=== PATIENT | male | born 1975 | race African-American/Black ===

== ENCOUNTER 2020-05-12 21:01 | Inpatient (IN) | payer OTHER, SELFPAY ==
[~2020-05-12] VITALS: Ht 185.4 cm; Wt 91.6 kg
[~2020-05-12 21:01] MED LIST: ACET650S53 GT; ATRN INH; Acetaminophen/Hydrocodone Bi GT; CARB100T GT; CARB200T1 GT; DOCU-299 GT; LAC GT; LEVE500T9 GT; MAGN400S60 GT; NA P135N9 RC; PANT40VI GT; PHEN20EL30 GT; PIPE1PDS26 IV; PRON INH; [UNRECOGNIZED DRUG - CODE] GT
[2020-05-12 21:09] VITALS: BP 95/54
[2020-05-12] MEDS ORDERED: PIPERACILLIN/TAZOBACTAM 3.375 GM in DEXTROSE 5% 50 ML IV ONE (22:55)
[2020-05-12] MEDS ORDERED: AZITHROMYCIN 500 MG in DEXTROSE 5% 250 ML IV ONE (22:55)
[2020-05-12] MEDS ORDERED: AZITHROMYCIN 500 MG INJ VIAL IV ONE (23:01)
[2020-05-12] MEDS ORDERED: PIPERACILLIN/TAZOBACTAM 3.375 GM VIAL IV ONE (23:02)
[2020-05-12 23:13] LABS: HEMATOCRIT 33.7 % (36-52); MEAN CORPUSCULAR HEMOGLOBIN 30 pg (27-31); MEAN CORPUSCULAR HGB CONC 33 g/dL (33-37); MEAN CORPUSCULAR VOLUME 92.4 fL (80-94); PLATELET COUNT (AUTO) 282 K/uL (140-450); RED BLOOD CELL COUNT(AUTO) 3.64 MIL/uL (4.20-6.10); RED CELL DISTRIBUTION WIDTH 14.3 % (11.6-13.7); WHITE BLOOD COUNT (AUTO) 23.2 K/uL (4.8-10.8)
[2020-05-12 23:34] LABS: ALBUMIN 2.4 g/dL (3.4-5.0); ANION GAP 9.4 (8-16); CARBON DIOXIDE 29.3 mmol/L (21-32); CREATININE 0.7 mg/dL (0.6-1.3); LACTATE DEHYDROGENASE 103 U/L (85-227); LYMPHOCYTES % (MANUAL) 8 % (20-46); MONOCYTES % (MANUAL) 3 % (5-12); POTASSIUM 3.7 mmol/L (3.5-5.1); TOTAL BILIRUBIN 0.3 mg/dL (0.0-1.0)
[2020-05-12] MEDS ORDERED: DOCUSATE SODIUM 100 MG GELCAP PO PRN (23:35)
[2020-05-12] MEDS ORDERED: ONDANSETRON 4 MG/2 ML VIAL IM/IVP PRN (23:35)
[2020-05-12] MEDS ORDERED: HYDROcodone/APAP 5/325 MG 1 TAB TAB PO PRN (23:35)
[2020-05-12] MEDS ORDERED: ACETAMINOPHEN 325 MG TAB PO PRN (23:35)
[2020-05-12] MEDS ORDERED: MORPHINE SULFATE 2 MG/ML SYR IVP PRN (23:35)
[2020-05-12] MEDS ORDERED: ALBUTEROL SULFATE/IPRATROPIU 3 ML SOL IH PRN (23:40)
[2020-05-12 23:43] LABS: APPEARANCE,URINE SL CLOUDY (CLEAR); BILIRUBIN,URINE NEGATIVE (NEGATIVE); BLOOD, URINE NEGATIVE (NEGATIVE); COLOR,URINE YELLOW (YELLOW); LEUKOCYTE ESTERASE ,URINE 2+ (NEGATIVE); NITRITE, URINE NEGATIVE (NEGATIVE); PH,URINE 6.5 (5.0-9.0); UGLUCOSE NEGATIVE (NEGATIVE)
[2020-05-12 23:45] LABS: RSV NEGATIVE (NEGATIVE)
[2020-05-12] MEDS ORDERED: TAMS0.4C96 PO (23:45)
[2020-05-12 23:46] LABS: C-REACTIVE PROTEIN QUANT 28.9 mg/dL (0.0-0.9)
[2020-05-12 23:51] LABS: PROTHROMBIN TIME 10.9 secs (10.8-13.4)
[2020-05-12 23:52] LABS: RBC,URINE 0-5 /HPF (0-5); WBC,URINE 16-25 (MOD) /HPF (0-5)
[2020-05-13] VITALS (7 sets, daily range): BP systolic 94–130; BP diastolic 48–77
[2020-05-13 00:06] LABS: MAGNESIUM 2.2 mg/dL (1.8-2.4); PHOSPHORUS 2.2 mg/dL (2.5-4.9); THYROID STIMULATING HORMONE 0.89 uIU/mL (0.34-3.74)
[2020-05-13] MEDS ORDERED: ASCO500T45 GT (00:18)
[2020-05-13] MEDS ORDERED: MIRABULK GT (00:18)
[2020-05-13] MEDS: PIPERACILLIN/TAZOBACTAM 3.375 GM in DEXTROSE 5% 50 ML IV SCH ×4 (00:59→18:38)
[2020-05-13] MEDS: NACL 0.9% 1,000 ML IV SCH (00:59)
[2020-05-13] MEDS ORDERED: SODIUM PHOS / POTASSIUM PHOS 1 PKT PDR GT SCH (01:55)
[2020-05-13] MEDS ORDERED: PIPERACILLIN/TAZOBACTAM 3.375 GM VIAL IV ONE (04:13)
[2020-05-13] MEDS: carBAMazepine 200 MG TAB GT SCH ×3 (04:25→21:11)
[2020-05-13] MEDS ORDERED: ALBUTEROL SULFATE/IPRATROPIU 3 ML SOL IH SCH (06:00)
[2020-05-13 06:59] LABS: HEMATOCRIT 35.1 % (36-52); HEMOGLOBIN 11.4 g/dL (12.0-18.0); MEAN CORPUSCULAR HEMOGLOBIN 30 pg (27-31); MEAN CORPUSCULAR HGB CONC 32 g/dL (33-37); MEAN CORPUSCULAR VOLUME 92.6 fL (80-94); PLATELET COUNT (AUTO) 276 K/uL (140-450); RED BLOOD CELL COUNT(AUTO) 3.79 MIL/uL (4.20-6.10); RED CELL DISTRIBUTION WIDTH 14.1 % (11.6-13.7)
[2020-05-13 07:00] LABS: ANION GAP 9.3 (8-16); CARBON DIOXIDE 28.3 mmol/L (21-32); CREATININE 0.7 mg/dL (0.6-1.3); POTASSIUM 3.6 mmol/L (3.5-5.1)
[2020-05-13] MEDS: ALBUTEROL SULFATE/IPRATROPIU 3 ML SOL IH SCH ×3 (07:00→18:00)
[2020-05-13 07:08] LABS: MAGNESIUM 2.1 mg/dL (1.8-2.4); PHOSPHORUS 2.8 mg/dL (2.5-4.9)
[2020-05-13 07:58] LABS: CHOL/HDL RATIO 2.5 (1-4.5)
[2020-05-13] MEDS: LACTOBACILLUS RHAMNOSUS GG 1 EACH CAP GT SCH (09:01)
[2020-05-13] MEDS: levETIRAcetam 100 MG/ML ORASYR GT SCH ×2 (09:01→21:10)
[2020-05-13] MEDS: PANTOPRAZOLE 40 MG INJ VIAL IVP SCH (09:01)
[2020-05-13] MEDS: TAMSULOSIN 0.4 MG CAP GT SCH (09:01)
[2020-05-13 09:10] LABS: WHITE BLOOD COUNT (AUTO) 26.2 K/uL (4.8-10.8)
[2020-05-13 09:11] LABS: LYMPHOCYTES % (MANUAL) 3 % (20-46); MONOCYTES % (MANUAL) 6 % (5-12)
[2020-05-13] MEDS ORDERED: AZITHROMYCIN 250 MG in DEXTROSE 5% 250 ML IV SCH ×2 (11:00→23:00)
[2020-05-13] MEDS ORDERED: ALBUTEROL HFA MDI 90 MCG/ACTUATION 8 GM INH PRN (11:20)
[2020-05-13] MEDS: guaiFENesin DM 200/20 MG-10 ML 10 ML UDC GT PRN ×2 (12:24→18:38)
[2020-05-13] MEDS: ACETAMINOPHEN 650 MG/20.3 ML UDC GT PRN ×2 (17:45→23:55)
[2020-05-13] MEDS ORDERED: CRUSHER, PILL MC ONE (20:59)
[2020-05-14] VITALS (7 sets, daily range): BP systolic 101–119; BP diastolic 49–70
[2020-05-14] MEDS: PIPERACILLIN/TAZOBACTAM 3.375 GM in DEXTROSE 5% 50 ML IV SCH ×4 (00:22→18:34)
[2020-05-14] MEDS: NACL 0.9% 1,000 ML IV SCH (00:25)
[2020-05-14] MEDS: ACETAMINOPHEN 650 MG/20.3 ML UDC GT PRN (04:15)
[2020-05-14] MEDS: carBAMazepine 200 MG TAB GT SCH ×3 (04:32→21:32)
[2020-05-14 07:07] LABS: BASOPHILS # (AUTO) 0.1 K/uL (0.00-0.22); BASOPHILS % (AUTO) 0.3 % (0.0-2.0); HEMOGLOBIN 10.5 g/dL (12.0-18.0); LYMPHOCYTES # (AUTO) 1.6 K/uL (2.0-11.5); LYMPHOCYTES % (AUTO) 7.1 % (20.5-51.1); MEAN CORPUSCULAR HEMOGLOBIN 30 pg (27-31); MEAN CORPUSCULAR HGB CONC 33 g/dL (33-37); MEAN CORPUSCULAR VOLUME 91.9 fL (80-94); MONOCYTES # (AUTO) 1.1 K/uL (0.8-1.0); MONOCYTES % (AUTO) 4.8 % (1.7-9.3); NEUTROPHILS # (AUTO) 19.8 K/uL (1.8-7.7); NEUTROPHILS % (AUTO) 87.8 % (42.2-75.2); PLATELET COUNT (AUTO) 260 K/uL (140-450); RED BLOOD CELL COUNT(AUTO) 3.48 MIL/uL (4.20-6.10); RED CELL DISTRIBUTION WIDTH 13.9 % (11.6-13.7); WHITE BLOOD COUNT (AUTO) 22.6 K/uL (4.8-10.8)
[2020-05-14 07:12] LABS: ANION GAP 13.3 (8-16); CARBON DIOXIDE 25.2 mmol/L (21-32); CREATININE 1.3 mg/dL (0.6-1.3); POTASSIUM 3.5 mmol/L (3.5-5.1)
[2020-05-14 07:17] LABS: MAGNESIUM 2.6 mg/dL (1.8-2.4)
[2020-05-14] MEDS: ALBUTEROL SULFATE/IPRATROPIU 3 ML SOL IH SCH ×3 (07:40→19:35)
[2020-05-14] MEDS: levETIRAcetam 100 MG/ML ORASYR GT SCH ×2 (09:59→21:32)
[2020-05-14] MEDS: TAMSULOSIN 0.4 MG CAP GT SCH (10:00)
[2020-05-14] MEDS: PANTOPRAZOLE 40 MG INJ VIAL IVP SCH (10:00)
[2020-05-14] MEDS: LACTOBACILLUS RHAMNOSUS GG 1 EACH CAP GT SCH (10:00)
[2020-05-15] VITALS (7 sets, daily range): BP systolic 91–106; BP diastolic 44–64
[2020-05-15] MEDS: PIPERACILLIN/TAZOBACTAM 3.375 GM in DEXTROSE 5% 50 ML IV SCH ×5 (00:42→23:53)
[2020-05-15] MEDS: NACL 0.9% 1,000 ML IV SCH (00:49)
[2020-05-15] MEDS: carBAMazepine 200 MG TAB GT SCH ×3 (05:37→20:17)
[2020-05-15 06:00] LABS: BASOPHILS # (AUTO) 0.1 K/uL (0.00-0.22); BASOPHILS % (AUTO) 0.7 % (0.0-2.0); HEMATOCRIT 32.2 % (36-52); HEMOGLOBIN 10.5 g/dL (12.0-18.0); LYMPHOCYTES # (AUTO) 1.6 K/uL (2.0-11.5); LYMPHOCYTES % (AUTO) 10.2 % (20.5-51.1); MEAN CORPUSCULAR HEMOGLOBIN 30 pg (27-31); MEAN CORPUSCULAR HGB CONC 33 g/dL (33-37); MONOCYTES % (AUTO) 6.2 % (1.7-9.3); NEUTROPHILS # (AUTO) 12.8 K/uL (1.8-7.7); NEUTROPHILS % (AUTO) 82.9 % (42.2-75.2); PLATELET COUNT (AUTO) 280 K/uL (140-450); RED BLOOD CELL COUNT(AUTO) 3.54 MIL/uL (4.20-6.10); RED CELL DISTRIBUTION WIDTH 13.9 % (11.6-13.7); WHITE BLOOD COUNT (AUTO) 15.5 K/uL (4.8-10.8)
[2020-05-15 07:04] LABS: ANION GAP 12.8 (8-16); CARBON DIOXIDE 27.2 mmol/L (21-32); CREATININE 0.9 mg/dL (0.6-1.3)
[2020-05-15 07:15] LABS: MAGNESIUM 2.8 mg/dL (1.8-2.4); PHOSPHORUS 1.9 mg/dL (2.5-4.9)
[2020-05-15] MEDS: ALBUTEROL SULFATE/IPRATROPIU 3 ML SOL IH SCH ×3 (07:45→19:55)
[2020-05-15] MEDS: levETIRAcetam 100 MG/ML ORASYR GT SCH ×2 (08:55→20:18)
[2020-05-15] MEDS: PANTOPRAZOLE 40 MG INJ VIAL IVP SCH (08:55)
[2020-05-15] MEDS: LACTOBACILLUS RHAMNOSUS GG 1 EACH CAP GT SCH (08:56)
[2020-05-15] MEDS: TAMSULOSIN 0.4 MG CAP GT SCH (08:56)
[2020-05-15] MEDS ORDERED: POTASSIUM CHLORIDE 40 MEQ, LIDOCAINE MPF 1% 25 MG in NACL 0.9% 250 ML IV PRN (09:10)
[2020-05-15] MEDS: SODIUM PHOS / POTASSIUM PHOS 1 PKT PDR GT SCH ×2 (14:14→17:42)
[2020-05-15] MEDS ORDERED: POTASSIUM CHLORIDE 10 MEQ TABER PO SCH (17:00)
[2020-05-15] MEDS ORDERED: Z-GUARD PASTE TP SCH (22:50)
[2020-05-16] VITALS: BP 117/78
[2020-05-16] MEDS: NACL 0.9% 1,000 ML IV SCH (00:25)
[2020-05-16 03:50] VITALS: BP 100/62
[2020-05-16] MEDS: carBAMazepine 200 MG TAB GT SCH ×2 (04:11→12:41)
[2020-05-16] MEDS: PIPERACILLIN/TAZOBACTAM 3.375 GM in DEXTROSE 5% 50 ML IV SCH ×2 (05:32→12:41)
[2020-05-16 07:17] LABS: BASOPHILS # (AUTO) 0.1 K/uL (0.00-0.22); BASOPHILS % (AUTO) 0.7 % (0.0-2.0); HEMOGLOBIN 9.7 g/dL (12.0-18.0); LYMPHOCYTES # (AUTO) 1.4 K/uL (2.0-11.5); LYMPHOCYTES % (AUTO) 10.1 % (20.5-51.1); MEAN CORPUSCULAR HEMOGLOBIN 30 pg (27-31); MEAN CORPUSCULAR HGB CONC 33 g/dL (33-37); MEAN CORPUSCULAR VOLUME 90.8 fL (80-94); MONOCYTES # (AUTO) 1.1 K/uL (0.8-1.0); NEUTROPHILS # (AUTO) 11.2 K/uL (1.8-7.7); NEUTROPHILS % (AUTO) 81.2 % (42.2-75.2); PLATELET COUNT (AUTO) 261 K/uL (140-450); WHITE BLOOD COUNT (AUTO) 13.8 K/uL (4.8-10.8)
[2020-05-16 07:23] LABS: ANION GAP 14.9 (8-16); CARBON DIOXIDE 24.6 mmol/L (21-32); CREATININE 0.8 mg/dL (0.6-1.3); POTASSIUM 3.5 mmol/L (3.5-5.1)
[2020-05-16] MEDS: ALBUTEROL SULFATE/IPRATROPIU 3 ML SOL IH SCH ×2 (07:40→12:30)
[2020-05-16 08:00] VITALS: BP 109/75
[2020-05-16] MEDS ORDERED: PIPE1PDS26 IV (08:21)
[2020-05-16] MEDS ORDERED: HEPA500056 SUBQ (08:27)
[2020-05-16] MEDS: PANTOPRAZOLE 40 MG INJ VIAL IVP SCH (08:40)
[2020-05-16] MEDS: SODIUM PHOS / POTASSIUM PHOS 1 PKT PDR GT SCH (08:40)
[2020-05-16] MEDS: TAMSULOSIN 0.4 MG CAP GT SCH (08:40)
[2020-05-16] MEDS: LACTOBACILLUS RHAMNOSUS GG 1 EACH CAP GT SCH (08:41)
[2020-05-16] MEDS: levETIRAcetam 100 MG/ML ORASYR GT SCH (08:41)
[2020-05-16] MEDS ORDERED: NEUTRAPHOS GT (08:44)
[2020-05-16 12:00] VITALS: BP 114/72
== END 2020-05-16 16:13 | DRG 871 ==
LOC: MED 21:01 → EEVIPCON 21:01 → MTU 23:34
PROVIDERS: ADMIT General Practice; ATTEND General Practice
PROC: 5A1945Z Respiratory Ventilation, 24-96 Consecutive Hours (ICD-10-PCS; principal; 2020-05-13)
DX: A41.9 Sepsis, unspecified organism (principal); J69.0 Pneumonitis due to inhalation of food and vomit; E43 Unspecified severe protein-calorie malnutrition; R53.2 Functional quadriplegia; J96.21 Acute and chronic respiratory failure with hypoxia; N17.0 Acute kidney failure with tubular necrosis; N39.0 Urinary tract infection, site not specified; Z93.0 Tracheostomy status; D63.8 Anemia in other chronic diseases classified elsewhere; G40.909 Epilepsy, unspecified, not intractable, without status epilepticus; K21.9 Gastro-esophageal reflux disease without esophagitis; R13.10 Dysphagia, unspecified; Z80.8 Family history of malignant neoplasm of other organs or systems; Z88.8 Allergy status to other drugs, medicaments and biological substances; J44.9 Chronic obstructive pulmonary disease, unspecified; G80.9 Cerebral palsy, unspecified; D64.9 Anemia, unspecified; E83.39 Other disorders of phosphorus metabolism; Z03.818 Encounter for observation for suspected exposure to other biological agents ruled out; Z68.26 Body mass index [BMI] 26.0-26.9, adult
CPT/HCPCS: 36415; 36600; 71045; 80048; 80053; 81001; 82550; 82728; 82803; 83036; 83605; 83615; 83735; 83880; 84100; 84443; 84484; 85025; 85379; 85384; 85610; 85651; 85730; 86140; 87040; 87070; 87081; 87086; 87186; 87205; 87420; 87804; 93005; 94003; 94640; 96365; 99291; C9113; J0456; J1644; J2001; J2543; J3480; J7030; J7060; Q0092; U0003-CS

== ENCOUNTER 2020-09-11 16:46 | Emergency (ER) | payer OTHER ==
[~2020-09-11] VITALS: Ht 185.4 cm; Wt 87.5 kg
[2020-09-11 16:30] VITALS: BP 120/78
--- NOTE | 2020-09-11 16:30 | NUR ---
PT BIBA FOR FEVER PLACED ON CARESCAPE VENT SETTINGS AC 14 VT400 PEEP 5 FIO2 30% ALARMS ON AND AUDIBLE AND BVM AT HOB VENT IS PLUGGED INTO RED OUTLET, SXN PT MODERATE AMT OF THICK WHITE SECRETIONS B\S IS RHONCHI BILATERALLY, PT IS TRACH WITH PORTEX 7
[~2020-09-11 16:46] MED LIST changes: -ACET650S53 GT; +ASCO500T95 GT; -ATRN INH; -Acetaminophen/Hydrocodone Bi GT; -CARB100T GT; -DOCU-299 GT; +HYDR-5122 PO; -LAC GT; +LANS15EC28 PO; +LOV40I SUBQ; -MAGN400S60 GT; +MUC104 INH; -NA P135N9 RC; +PANT40PD7 IVP; -PANT40VI GT; -PIPE1PDS26 IV; -PRON INH; +VITD400 GT; +ZINC220C28 GT; +[UNRECOGNIZED DRUG - CODE] GT; -[UNRECOGNIZED DRUG - CODE] GT; +levaquin IV
--- NOTE | 2020-09-11 16:46 | NUR ---
BIBA TAKEN TO BED 1
[2020-09-11 16:47] VITALS: BP 120/78
[2020-09-11] MEDS ORDERED: VANCOMYCIN 1,000 MG in DEXTROSE 5% 250 ML IV ONE (16:50)
[2020-09-11] MEDS ORDERED: PIPERACILLIN/TAZOBACTAM 4.5 GM in DEXTROSE 5% 100 ML IV ONE (16:50)
--- NOTE | 2020-09-11 16:52 | NUR ---
45 y/o male biba from [facility] for fever since this afternoon. Per ems pt was given tylenol at facility. Pt skin warm and moist. RR even and unlabored, connected to ventilator. Per ems pt was covid negative on 09/01. Positioned for comfort. Placed on bedside monitor medhx: Chronic respiratory failure, anemia, cerebral palsy
[2020-09-11] MEDS ORDERED: VANCOMYCIN 1,000 MG VIAL ONE (16:58)
[2020-09-11] MEDS ORDERED: PIPERACILLIN/TAZOBACTAM 4.5 GM VIAL IV ONE ×2 (16:58→17:08)
--- NOTE | 2020-09-11 17:09 | NUR ---
16F gandara catheter placed, 350cc urine collected at this time.
--- NOTE | 2020-09-11 17:10 | NUR ---
Renetta james in ED - 09/11/20 at 1710 by [email or web address] Covid swab collected and given to
--- NOTE | 2020-09-11 17:10 | NUR ---
Covid swab collected and given to phleb.
--- NOTE | 2020-09-11 17:11 | NUR ---
X-Ray at bedside.
[2020-09-11 17:22] LABS: APPEARANCE,URINE CLEAR (CLEAR); BILIRUBIN,URINE NEGATIVE (NEGATIVE); BLOOD, URINE TRACE-I (NEGATIVE); COLOR,URINE YELLOW (YELLOW); LEUKOCYTE ESTERASE ,URINE TRACE (NEGATIVE); NITRITE, URINE NEGATIVE (NEGATIVE); PH,URINE 5.5 (5.0-9.0); UGLUCOSE NEGATIVE (NEGATIVE)
[2020-09-11 17:25] LABS: BASOPHILS # (AUTO) 0.1 K/uL (0.00-0.22); BASOPHILS % (AUTO) 1.1 % (0.0-2.0); HEMATOCRIT 36.1 % (36-52); LYMPHOCYTES # (AUTO) 2.3 K/uL (2.0-11.5); LYMPHOCYTES % (AUTO) 19.1 % (20.5-51.1); MEAN CORPUSCULAR HEMOGLOBIN 30 pg (27-31); MEAN CORPUSCULAR HGB CONC 33 g/dL (33-37); MEAN CORPUSCULAR VOLUME 91.6 fL (80-94); MONOCYTES # (AUTO) 1.2 K/uL (0.8-1.0); MONOCYTES % (AUTO) 9.9 % (1.7-9.3); NEUTROPHILS # (AUTO) 8.6 K/uL (1.8-7.7); NEUTROPHILS % (AUTO) 69.9 % (42.2-75.2); PLATELET COUNT (AUTO) 248 K/uL (140-450); RED BLOOD CELL COUNT(AUTO) 3.95 MIL/uL (4.20-6.10); RED CELL DISTRIBUTION WIDTH 14.5 % (11.6-13.7); WHITE BLOOD COUNT (AUTO) 12.3 K/uL (4.8-10.8)
[2020-09-11 17:38] LABS: ANION GAP 11.5 (8-16); CARBON DIOXIDE 28.6 mmol/L (21-32); CREATININE 0.6 mg/dL (0.6-1.3); POTASSIUM 4.1 mmol/L (3.5-5.1); TOTAL BILIRUBIN 0.2 mg/dL (0.0-1.0)
[2020-09-11 17:46] LABS: CREATINE KINASE MB 0.3 ng/mL (0-3.6)
[2020-09-11] MEDS ORDERED: TAMS0.4C96 PO (18:02)
[2020-09-11] MEDS ORDERED: MAGN400S60 PO (18:02)
[2020-09-11] MEDS ORDERED: MULT-1328 GT (18:02)
[2020-09-11] MEDS ORDERED: LACT1CAP59 GT (18:02)
--- NOTE | 2020-09-11 18:22 | NUR ---
pt repositioned for comfort, HOB elevated. Remains on bedside monitor. VSS
--- NOTE | 2020-09-11 18:33 | NUR ---
Nunez catheter removed, pt tolerated well.
--- NOTE | 2020-09-11 18:42 | NUR ---
Gave report to GUILLERMO Chacko at [facility]. Made aware of approx arrival time.
--- NOTE | 2020-09-11 19:08 | NUR ---
Report given to GUILLERMO Biggs. Transfer of care at this time
--- NOTE | 2020-09-11 19:11 | NUR ---
REPORT RECEIVED FROM GUILLERMO DELACRUZ FOR CONTINUATION OF CARE.
--- NOTE | 2020-09-11 20:34 | NUR ---
[facility] TRANSPORT AT BEDSIDE
--- NOTE | 2020-09-11 20:40 | NUR ---
Renetta james in EDM - 09/11/20 at 2051 by [email or web address] PT 20G IV IN RT FOOT KEPT FOR CEC - PER GUILLERMO DELACRUZ , CEC WAS MADE AWARE DURING REPORT.
--- NOTE | 2020-09-11 20:40 | NUR ---
PT 20G IV IN RT FOOT KEPT FOR CEC - PER GUILLERMO DELACRUZ , CEC WAS MADE AWARE DURING REPORT.
[2020-09-11 20:45] VITALS: BP 104/71
--- NOTE | 2020-09-11 20:45 | NUR ---
Patient discharged with v/s stable. Written and verbal after care instructions given and explained. Patient verbalized understanding. Ambulance Transport with [facility] to long-term. All questions addressed prior to discharge. Advised to follow up with PMD.
== END 2020-09-11 20:45 | disposition home or self-care (01) ==
LOC: MED 16:46
DX: J18.9 Pneumonia, unspecified organism (principal); Z20.828 Contact with and (suspected) exposure to other viral communicable diseases; J44.9 Chronic obstructive pulmonary disease, unspecified
CPT/HCPCS: 36415; 71045; 80053; 81003; 82550; 82553; 83605; 84484; 85025; 87040; 87086; 87426; 93005; 96365; 96366; 96367; 99285; J2543; J3370; J7060

== ENCOUNTER 2020-12-09 11:43 | Inpatient (IN) | payer OTHER, SELFPAY ==
[~2020-12-09] VITALS: Ht 170.2 cm; Wt 96.6 kg
[~2020-12-09 11:43] MED LIST changes: -ASCO500T95 GT; +LACT1CAP59 GT; -LANS15EC28 PO; -LOV40I SUBQ; +MAGN400S60 PO; -MUC104 INH; +MULT-1328 GT; -PANT40PD7 IVP; +TAMS0.4C96 PO; -VITD400 GT; -ZINC220C28 GT; -[UNRECOGNIZED DRUG - CODE] GT; -levaquin IV
--- NOTE | 2020-12-09 11:54 | NUR ---
pt transferred to bed 03
--- NOTE | 2020-12-09 12:00 | NUR ---
RECEIVED VENTILATOR SETTINGS FROM [facility] PLACED ON A VIASYS BROWN VENTILATOR WITH SETTINGS NOTED PLUGGED INTO RED OUTLET TOLERATING WELL WITHOUT ADVERSE REACTIONS TO A PORTEX DCT #7 AIRWAY SECURED WITH A PORTEX TRACH TIE LOC AWAKE GOOD CHEST RISE BREATH SOUNDS DECREASED BILATERAL AIRWAY PATENT
--- NOTE | 2020-12-09 12:15 | NUR ---
[facility] ATTEMPT X 2 UNABLE TO OBTAIN DUE TO LOW BLOOD PRESSURE INBOUND CUSTOMER SERVICE REPRESENTATIVE TO ATTEMPY AT A LATER TIME
[2020-12-09] MEDS ORDERED: NACL 0.9% 1,000 ML IV ONE (13:00)
[2020-12-09] MEDS ORDERED: ONDANSETRON 4 MG/2 ML VIAL IVP ONE (13:35)
[2020-12-09 13:42] LABS: BASOPHILS % (AUTO) 0.3 % (0.0-2.0); HEMOGLOBIN 10.7 g/dL (12.0-18.0); LYMPHOCYTES # (AUTO) 0.9 K/uL (2.0-11.5); LYMPHOCYTES % (AUTO) 5.2 % (20.5-51.1); MEAN CORPUSCULAR HEMOGLOBIN 29 pg (27-31); MEAN CORPUSCULAR HGB CONC 31 g/dL (33-37); MEAN CORPUSCULAR VOLUME 91.7 fL (80-94); MONOCYTES # (AUTO) 0.7 K/uL (0.8-1.0); MONOCYTES % (AUTO) 4.1 % (1.7-9.3); NEUTROPHILS # (AUTO) 16.4 K/uL (1.8-7.7); NEUTROPHILS % (AUTO) 90.4 % (42.2-75.2); PLATELET COUNT (AUTO) 307 K/uL (140-450); RED BLOOD CELL COUNT(AUTO) 3.71 MIL/uL (4.20-6.10); RED CELL DISTRIBUTION WIDTH 14.5 % (11.6-13.7); WHITE BLOOD COUNT (AUTO) 18.1 K/uL (4.8-10.8)
[2020-12-09 14:08] LABS: LACTATE DEHYDROGENASE 148 U/L (85-227)
--- NOTE | 2020-12-09 14:39 | NUR ---
45 years old male with history of cerebral palsy, chronic resp failure sent to er by ambulance from extended care for severe sob, vomiting.
[2020-12-09] MEDS ORDERED: ONDANSETRON 4 MG/2 ML VIAL ONE (14:42)
[2020-12-09 14:53] LABS: RSV NEGATIVE (NEGATIVE)
[2020-12-09 15:03] LABS: C-REACTIVE PROTEIN QUANT 40.4 mg/dL (0.0-0.9)
[2020-12-09] MEDS ORDERED: ENOXAPARIN 60 MG/0.6 ML SYR SUBQ ONE (15:10)
[2020-12-09 15:19] LABS: ALBUMIN 1.9 g/dL (3.4-5.0); ANION GAP 20.2 (8-16); CARBON DIOXIDE 16.7 mmol/L (21-32); CREATININE 1.6 mg/dL (0.6-1.3); POTASSIUM 3.9 mmol/L (3.5-5.1); TOTAL BILIRUBIN 0.3 mg/dL (0.0-1.0)
[2020-12-09] MEDS ORDERED: AZITHROMYCIN 1,000 MG in DEXTROSE 5% 500 ML IV ONE (15:55)
[2020-12-09] MEDS ORDERED: AZITHROMYCIN 500 MG INJ VIAL IV ONE (16:23)
[2020-12-09] MEDS ORDERED: cefTRIAXone 1,000 MG VIAL ONE (16:23)
[2020-12-09] MEDS ORDERED: NOREPINEPHRINE 4 MG/4 ML VIAL IV ONE ×2 (16:30→22:29)
--- NOTE | 2020-12-09 17:03 | NUR ---
patient remain hypotensive norepinephrine initiated.
[2020-12-09] MEDS ORDERED: ONDANSETRON 4 MG/2 ML VIAL IM/IVP PRN (17:55)
[2020-12-09] MEDS ORDERED: MORPHINE SULFATE 2 MG/ML SYR IVP PRN (17:55)
[2020-12-09] MEDS ORDERED: HYDROcodone/APAP 5/325 MG 1 TAB TAB PO PRN (17:55)
[2020-12-09] MEDS ORDERED: SODIUM PHOS / POTASSIUM PHOS 1 PKT PDR PO PRN (17:55)
[2020-12-09] MEDS ORDERED: MAG SULF 2000 MG/WATER PREMIX 50 ML IV PRN (17:55)
[2020-12-09] MEDS ORDERED: ACETAMINOPHEN 325 MG TAB PO PRN (17:55)
[2020-12-09] MEDS ORDERED: DOCUSATE SODIUM 100 MG GELCAP PO PRN (17:55)
[2020-12-09] MEDS ORDERED: MAGNESIUM HYDROXIDE 2400 MG/30 ML UDC PO PRN (18:00)
--- NOTE | 2020-12-09 18:11 | NUR ---
patient condition unstable, levophed at 25mcg/min BP<90.
[2020-12-09] MEDS: NACL 0.9% 1,000 ML IV SCH (18:20)
--- NOTE | 2020-12-09 18:32 | NUR ---
report endorsed ro charge nurse Ray all questions answered, meds/lab review.
[2020-12-09] MEDS: NOREPINEPHRINE 8 MG in DEXTROSE 5% 250 ML IV PRN (18:37)
--- NOTE | 2020-12-09 19:30 | NUR ---
Report received from GUILLERMO Leach for continuation of care.
--- NOTE | 2020-12-09 19:30 | NUR ---
See Levophed IV spreadsheet for updated vital signs.
[2020-12-09 19:31] LABS: MAGNESIUM 2.2 mg/dL (1.8-2.4); PHOSPHORUS 2.1 mg/dL (2.5-4.9)
--- NOTE | 2020-12-09 19:35 | NUR ---
Pt observed to have Gtube on continuous suctioning, noted 2 cannisters filled of liquid from Gtube, approx 2200 cc brown liquid . Observed urinary gandara w/ no output noted in gandara bag at this time.
[2020-12-09] MEDS: carBAMazepine 200 MG TAB GT SCH (21:00)
[2020-12-09] MEDS ORDERED: levETIRAcetam 100 MG/ML ORASYR GT SCH (21:00)
--- NOTE | 2020-12-09 21:06 | NUR ---
Contacted Dr. Patel regarding GTube medication orders . Pt has 2200 cc suctioned from Gtub and need clarification if Gtube medications should be administered. Also, requested a standing order for a vasopressor since pt is currently at 26 mcg/min on 8mg levophed at this time.
--- NOTE | 2020-12-09 21:10 | NUR ---
Per Dr. Patel contact pharmacy to convert Gtub medications to IV medications. Order Neosyn PRN for decreased BP.
--- NOTE | 2020-12-09 21:18 | NUR ---
per Pharmacy Keppra & phenobarbital are 1 to 1 medications and can be changed to IV medications w/ same mg dosage. There is no availability for carbamazepin in IV form at this time.
[2020-12-09] MEDS ORDERED: levETIRAcetam 100 MG/ML VIAL IV ONE (21:49)
[2020-12-09] MEDS ORDERED: PHENYLEPHRINE 10 MG in NACL 0.9% 250 ML IV PRN (22:00)
[2020-12-09] MEDS ORDERED: ACETAMINOPHEN 650 MG SUPP RC ONE (22:12)
--- NOTE | 2020-12-09 22:30 | NUR ---
Pt rectal temperature 105.8 F , pulled acetaminophen 650mg supp for administration. Initiated cooling measures at this time.
--- NOTE | 2020-12-09 22:45 | NUR ---
New bag of levophed 8mg in 250 ml D5% hung at this time.
[2020-12-09 22:46] VITALS: BP 85/50
--- NOTE | 2020-12-09 22:46 | NUR ---
RECEIVED PT ON SETTINGS NOTATED NO CHANGES HAVE BEEN MADE TO VENT VENT PLUGGED INTO RED OUTLET AND AMBU AT BEDSIDE WILL CONTINUE TO MONITOR
--- NOTE | 2020-12-09 23:00 | NUR ---
Perineal care provided. Sacral wound noted , pictures taken and documented. Pt provided w/ new sheets and repositioned to left side for comfort.
--- NOTE | 2020-12-09 23:00 | NUR ---
4 ml heather urine collect from gandara tubing via sterile procedure and walked to lab.
[2020-12-09] MEDS: levETIRAcetam 500 MG in NACL 0.9% 100 ML IV SCH (23:13)
[2020-12-09] MEDS: ACETAMINOPHEN 650 MG SUPP RC PRN (23:14)
[2020-12-09 23:33] LABS: BILIRUBIN,URINE 1+ (NEGATIVE); BLOOD, URINE 3+ (NEGATIVE); COLOR,URINE YELLOW (YELLOW); LEUKOCYTE ESTERASE ,URINE 2+ (NEGATIVE); NITRITE, URINE POSITIVE (NEGATIVE); PH,URINE 6.5 (5.0-9.0); UGLUCOSE NEGATIVE (NEGATIVE)
[2020-12-09 23:55] LABS: APPEARANCE,URINE CLOUDY (CLEAR)
[2020-12-09 23:57] LABS: RBC,URINE 11-20 (MOD) /HPF (0-5); WBC,URINE 20-60 /HPF (0-5)
[2020-12-10] MEDS ORDERED: PHENYLEPHRINE 10 MG/ML VIAL ONE ×5 (00:23→06:06)
--- NOTE | 2020-12-10 00:45 | NUR ---
Initiated Andrew-Synephrine 10mg in 250 NS at this time.
--- NOTE | 2020-12-10 00:58 | NUR ---
Pt current rectal temp 103.1 F , new ice packs and cool towels placed on pt at this time.
[2020-12-10 02:13] VITALS: BP 79/32
[2020-12-10] MEDS ORDERED: VANCOMYCIN PER PHARMACY MC PRN ×2 (02:20→04:00)
[2020-12-10] MEDS ORDERED: VANCOMYCIN 1GM/DEXT 5% PREMIX 200 ML IV SCH ×2 (02:50→04:30)
--- NOTE | 2020-12-10 03:00 | NUR ---
Per critical care Dr. Schumacher , order hydrocortisone 15 mg IV Q6H , Vasopressin titrate to max 0.04 if needed and administer 2L NS bolus.
[2020-12-10] MEDS ORDERED: VASOPRESSIN 20 UNITS in NACL 0.9% 250 ML IV SCH (03:05)
--- NOTE | 2020-12-10 03:10 | NUR ---
Initiated 2L NS bolus at this time.
[2020-12-10] MEDS ORDERED: NOREPINEPHRINE 4 MG/4 ML VIAL IV ONE (03:12)
--- NOTE | 2020-12-10 03:19 | NUR ---
New Levophed 8mg bag hung at this time.
--- NOTE | 2020-12-10 04:17 | NUR ---
New Andrew-synephrine 10mg bag hung at this time.
[2020-12-10] MEDS ORDERED: NACL 0.9% 2,000 ML IV ONE (04:25)
--- NOTE | 2020-12-10 04:30 | NUR ---
Spoke w/ pt's mother Chloé and updated her on pt status. Per mother ,patient has pacemaker. Also , per mother pt's baseline temperature is 97 F . Pt's mother informed of calling hours 1300 - 1400 during day shift and 2300 - 0000 on night shifts. She will be calling this afternoon for update on pt status.
[2020-12-10 04:44] VITALS: BP 94/52
[2020-12-10] MEDS ORDERED: VANCOMYCIN 1,000 MG VIAL ONE (04:45)
[2020-12-10] MEDS: HYDROCORTISONE NA SUCC 100 MG/2 ML VIAL IV SCH ×4 (05:05→18:00)
--- NOTE | 2020-12-10 05:20 | NUR ---
New Andrew-synephrine 10mg bag hung at this time.
--- NOTE | 2020-12-10 05:30 | NUR ---
Oral care provided at this time. Procedure well tolerate by patient.
--- NOTE | 2020-12-10 05:50 | NUR ---
Pt cleaned , perineal care provided and pt repositioned to left side . No acute distress noted. Procedure well tolerated by patient. Addendum: 12/10/20 at 0557 by ANGIE Pt cleaned , perineal care provided and pt repositioned to right lateral . No acute distress noted. Procedure well tolerated by patient.
--- NOTE | 2020-12-10 05:56 | NUR ---
CHG CLEANING PERFORMED. PT REPOSITIONED TO RIGHT LATERAL
[2020-12-10] MEDS ORDERED: PIPERACILLIN/TAZOBACTAM 3.375 GM VIAL IV ONE ×2 (06:06→18:57)
[2020-12-10] MEDS: PIPERACILLIN/TAZOBACTAM 3.375 GM in DEXTROSE 5% 50 ML IV SCH ×3 (06:20→18:00)
--- NOTE | 2020-12-10 06:55 | NUR ---
New Andrew-Synephrine 10mg hung at this time.
--- NOTE | 2020-12-10 06:57 | NUR ---
Total urine output during 1900 - 0700 shift is 64 ml.
--- NOTE | 2020-12-10 07:31 | NUR ---
Report given to GUILLERMO Bonilla for transfer of care.
--- NOTE | 2020-12-10 07:32 | NUR ---
received from prop worker for continuity of care
[2020-12-10 07:56] VITALS: BP 86/40
[2020-12-10 08:38] LABS: BASOPHILS % (AUTO) 0.2 % (0.0-2.0); HEMATOCRIT 33.5 % (36-52); HEMOGLOBIN 10.7 g/dL (12.0-18.0); LYMPHOCYTES # (AUTO) 1.3 K/uL (2.0-11.5); LYMPHOCYTES % (AUTO) 6.6 % (20.5-51.1); MEAN CORPUSCULAR HEMOGLOBIN 29 pg (27-31); MEAN CORPUSCULAR HGB CONC 32 g/dL (33-37); MONOCYTES # (AUTO) 0.9 K/uL (0.8-1.0); MONOCYTES % (AUTO) 4.8 % (1.7-9.3); NEUTROPHILS % (AUTO) 88.4 % (42.2-75.2); PLATELET COUNT (AUTO) 161 K/uL (140-450); RED BLOOD CELL COUNT(AUTO) 3.68 MIL/uL (4.20-6.10); RED CELL DISTRIBUTION WIDTH 14.7 % (11.6-13.7); WHITE BLOOD COUNT (AUTO) 19.2 K/uL (4.8-10.8)
[2020-12-10 08:43] LABS: ANION GAP 18.9 (8-16); CARBON DIOXIDE 16.1 mmol/L (21-32); CREATININE 2.8 mg/dL (0.6-1.3)
[2020-12-10] MEDS: TAMSULOSIN 0.4 MG CAP PO SCH (09:00)
[2020-12-10] MEDS ORDERED: PHENobarbital 65 MG/ML VIAL IV SCH (09:00)
[2020-12-10] MEDS: levETIRAcetam 500 MG in NACL 0.9% 100 ML IV SCH ×2 (09:00→21:00)
[2020-12-10] MEDS: carBAMazepine 200 MG TAB GT SCH ×2 (09:00→21:00)
[2020-12-10] MEDS: NOREPINEPHRINE 8 MG in DEXTROSE 5% 250 ML IV PRN (10:13)
[2020-12-10] MEDS: PHENYLEPHRINE 40 MG in NACL 0.9% 250 ML IV PRN (10:13)
[2020-12-10 10:55] VITALS: BP 117/65
--- NOTE | 2020-12-10 11:04 | NUR ---
PATIENT HAS BEEN SCREENED AND CATEGORIZED HIGH NUTRITION RISK. PATIENT WILL BE SEEN WITHIN 1-2 DAYS OF ADMISSION. 12/10/20 - 12/11/20 JHONY GUSTAFSON MBA, RD
--- NOTE | 2020-12-10 15:00 | NUR ---
temp 100.4, cooling measures rendered
[2020-12-10 15:01] VITALS: BP 105/59
[2020-12-10] MEDS: NACL 0.9% 1,000 ML IV SCH (17:55)
--- NOTE | 2020-12-10 19:20 | NUR ---
RECEIVED REPORT FROM GUILLERMO VIZCAINO AND [facility].
[2020-12-10 22:06] VITALS: BP 119/80
[2020-12-10] MEDS ORDERED: levETIRAcetam 100 MG/ML VIAL IV ONE (22:26)
--- NOTE | 2020-12-10 23:14 | NUR ---
PT RECTAL TEMP 99.2 AT THIS TIME. COOL WASHCLOTHS PLACED ON FOREHEAD AND UNDER ARMS.
[2020-12-11] VITALS (26 sets, daily range): BP systolic 88–127; BP diastolic 34–84
--- NOTE | 2020-12-11 00:15 | NUR ---
RECEIVED REPORT FROM ER NURSE. PT TRACH TO VENT. FIO2-24%, PEEP-5, TV-450, RATE-14. RESPIRATION EVEN AND UNLABORED. SYMMETRICAL CHEST EXPANSION. ORAL MUCOSA PINK AND MOIST. RIGHT FEMORAL TRIPLE LUMEN CATH INFUSING LEVOPHED @ 12MCG/MIN, COLLEEN @ 50MCG/HR. LINE ASYMPTOMATIC PATENT AND INTACT. SKIN WARM AND DRY. PRESSURE ULCER ON THE SACRAL AREA OBSERVED. OPTIFOAM DRESSING APPLIED. BED IN LOWEST POSITION, SIDE RAILS UP, SAFETY PRECAUTIONS OBSERVED. WILL CONTINUE TO MONITOR.
--- NOTE | 2020-12-11 00:25 | NUR ---
Patient will be admitted to care of DR MARQUEZ. Admited to ICU. Will go to room 3. Belongings list completed. Report to GUILLERMO RODRIGUEZ.
--- NOTE | 2020-12-11 00:34 | NUR ---
PT TRANSFERRED FROM ED TO ICU 3. PT TOLERATED WELL. WILL CONTINUE TO MONITOR
[2020-12-11] MEDS ORDERED: PIPERACILLIN/TAZOBACTAM 3.375 GM VIAL IV ONE ×2 (01:17→05:49)
[2020-12-11] MEDS: HYDROCORTISONE NA SUCC 100 MG/2 ML VIAL IV SCH ×4 (01:35→18:15)
[2020-12-11] MEDS: PIPERACILLIN/TAZOBACTAM 3.375 GM in DEXTROSE 5% 50 ML IV SCH ×4 (01:35→18:15)
[2020-12-11] MEDS ORDERED: NOREPINEPHRINE 4 MG/4 ML VIAL IV ONE (04:48)
[2020-12-11] MEDS: FAMOTIDINE 20 MG/2 ML VIAL IV SCH (05:15)
[2020-12-11] MEDS: NOREPINEPHRINE 16 MG in DEXTROSE 5% 250 ML IV PRN (05:16)
[2020-12-11 06:31] LABS: BASOPHILS # (AUTO) 0.1 K/uL (0.00-0.22); BASOPHILS % (AUTO) 0.4 % (0.0-2.0); HEMATOCRIT 32.3 % (36-52); HEMOGLOBIN 10.5 g/dL (12.0-18.0); LYMPHOCYTES # (AUTO) 0.7 K/uL (2.0-11.5); LYMPHOCYTES % (AUTO) 3.3 % (20.5-51.1); MEAN CORPUSCULAR HEMOGLOBIN 29 pg (27-31); MEAN CORPUSCULAR HGB CONC 32 g/dL (33-37); MEAN CORPUSCULAR VOLUME 90.8 fL (80-94); MONOCYTES # (AUTO) 1.2 K/uL (0.8-1.0); MONOCYTES % (AUTO) 5.9 % (1.7-9.3); NEUTROPHILS # (AUTO) 18.9 K/uL (1.8-7.7); NEUTROPHILS % (AUTO) 90.4 % (42.2-75.2); PLATELET COUNT (AUTO) 146 K/uL (140-450); RED BLOOD CELL COUNT(AUTO) 3.56 MIL/uL (4.20-6.10); RED CELL DISTRIBUTION WIDTH 14.9 % (11.6-13.7); WHITE BLOOD COUNT (AUTO) 20.9 K/uL (4.8-10.8)
[2020-12-11 06:53] LABS: ANION GAP 19.8 (8-16); CARBON DIOXIDE 16.1 mmol/L (21-32); CREATININE 3.2 mg/dL (0.6-1.3); POTASSIUM 4.9 mmol/L (3.5-5.1)
--- NOTE | 2020-12-11 07:30 | NUR ---
RECEIVED BEDSIDE REPORT FROM MATERNAL CHILD NURSE NURSE JENNIFER RN, PT ON TRACH TO VENT ACVC FIO2 24%, RATE 14 PEEP 5, NO SOB NOTED, SATURATING @ 100%, CENTRAL LINE TO R FEMORAL, TRIPLE LUMEN, PATENT INTACT, INFUSING NS @ KVO, LEVOPHED @ 12MCG/MIN, NEOSYNEPHRINE @ 50MCG/HR, INFUSING WELL, GT IN PLACE WITH INTERMITTENT SUCTION, DARK BROWN FLUID NOTED, HAMEED CATH IN PLACE DRAINING TO GRAVITY, INITIAL ASSESSMENT DONE, ALL SAFETY PRECAUTION MET, CALL LIGHT WITHINR EACH, WILL CONTINUE TO MONITOR.
[2020-12-11] MEDS: carBAMazepine 200 MG TAB GT SCH ×2 (08:08→23:33)
[2020-12-11] MEDS: ACETAMINOPHEN 650 MG SUPP RC PRN (08:08)
[2020-12-11] MEDS: levETIRAcetam 500 MG in NACL 0.9% 100 ML IV SCH ×2 (08:24→21:47)
[2020-12-11] MEDS: TAMSULOSIN 0.4 MG CAP PO SCH (08:26)
[2020-12-11] MEDS: PHENobarbital 130 MG/ML VIAL IV SCH (08:26)
[2020-12-11] MEDS ORDERED: PHENobarbital 65 MG/ML VIAL IV SCH (09:00)
[2020-12-11] MEDS ORDERED: VANCOMYCIN 1,000 MG in DEXTROSE 5% 250 ML IV SCH (09:00)
--- NOTE | 2020-12-11 11:18 | NUR ---
SOCIAL WORK NOTE: Patient's Orientation Unable To Assess Information Provided By JOANNA PHELAN - SISTER Comments SW WAS UNABLE TO MEET PATIENT AT BEDSIDE. SW COMPLETED ASSESSMENT WITH PATIENT'S SISTER AND LEFT PATIENT'S MOTHER TIKI. Manager Radiation, Realtionship and Phone Number MADALYN PHELAN MOTHER/CLAUM [phone] JOANNA PHELAN SISTER [phone] Healthcare Power of Line Installation Supervisor No Does Patient Have a POLST No Identifying Problems No Social Work Triggers Is A Social Work Consult Needed No Mandate Report Filed No Explanation Of Identifying Problems PATIENT IS A 45-YEAR-OLD MALE ADMITTED FOR NSTEMI AND HYPOTENSION. PATIENT HAS PMHX OF CEREBRAL PALSY, GERD, EPILEPSY, SACRAL ULCER, CHRONIC RESP. TRACH DEPENDENT, AND DYSPHAGIA. Fdc Facility [facility] - [phone] Pre-Admission Level Of Functioning Status Total Care Prior Resources/Services Used In Last 12 Months No Prior Resources Used SNF [facility] Prior Resources/Service Comments PER SISTER, PATIENT IS HALF-WAY. PATIENT IS ON BED HOLD. Prior DME Hospital Bed Trach Supplies Wheelchair Dialysis Comments N/A Patient Had Caregiver No Home Support No Caregiver Issues Financial Issues No Known Financial Issue Referral To The Financial Counselor Needed No Factors/Needs No D/C Needs Identified Pt/Rep Participated In Discharge Plan Yes Patient/Family Agress With Discharge Plan Yes Discharge Plan Comments TENTATIVE DISCHARGE PLAN IS FOR PATIENT TO RETURN [place] [facility]. DC Plan Status Initiated
--- NOTE | 2020-12-11 12:01 | NUR ---
DR GUTIERREZ AND DR VILLARREAL AT BEDSIDE EVALUATING PT.
[2020-12-11] MEDS: NACL 0.9% 1,000 ML IV SCH (12:30)
--- NOTE | 2020-12-11 13:10 | NUR ---
BEDSIDE ULTRASOUND KIDNEY DONE, PT TOLERATED WELL. WILL CONTINUE TO MONITOR.
--- NOTE | 2020-12-11 13:58 | NUR ---
WOUND CARE EVALUATION NOTE: REASON FOR EVALUATION: LOW JOSI SCALE AND SACRAL PRESSURE INJURY SKIN ASSESSMENT DONE WITH THIS 44 Y/O MALE PT WITH PRIMARY RN. PT. ADMITT[place] [facility] [place] [facility] WITH INITIAL DX FEVER AND SBO. PAST MEDICAL HX INCLUDES CHRONIC RESPIRATORY FAILURE, TRACH TO VENT, CEREBRAL PALSY WITH QUADRIPLEGIA, DYSPHAGIA, EPILEPSY, GERD, CHRONIC PRESSURE ULCER WOUNDS, G-TUBE. ALL ABOVE INFORMATION OBTAINED FROM ADMISSION H&P.PLAN OF CARE DISCUSSED WITH PRIMARY RN. INTEGUMENTARY: -TRACH SITE MARIOLA STOMA SKIN DRY AND CLEAN. SKIN INTACT. -GT SITE MARIOLA STOMA SKIN EROSION, 2X3 CM WOUND BED RED AND MOIST. -BILATERAL KNEES OLD SURGICAL SCARS -SACRAL PRESSURE INJURY STAGE 4, 6X2.5X1 CM, TUNNEL TO 12 O'CLOCK 0.8CM, WOUND BED IS RED 100% GRANULATING TISSUE, SMALL AMOUNT SEROUS DRAINAGE, NO ODOR, WOUND EDGE FLAT ,WHITE AND MOIST, MARIOLA WOUND SKIN HEALED SCARS TISSUE, MOIST IRREGULAR SHAPE -BILATERAL HEELS BLANCHABLE REDNESS, OFFLOADING RECOMMENDATIONS: -APPLY HYDRAGUARD TO R/L BUTTOCKS BID AND PRN IF SOILING PREVENTION -CLEANSE SACRALCOCCYX WITH WOUND CLEANSING SOLUTION AND PACK WITH THERAHONEY DRESSING SHEET TO WOUND BED/TUNNEL AND APPLY HYDRAGUARD TO MARIOLA WOUND SCARS TISSUE, COVER WITH COMPOSITE DRESSING QD AND PRN IF SOILING -APPLY HEEL PROTECTORS TO BOTH HEELS AT ALL TIMES -OFFLOAD BILATERAL HEELS BY PLACING PILLOWS UNDER CALVES UNLESS OTHERWISE CONTRAINDICATED -PRESSURE REDISTRIBUTION SURFACE THERAPY -TURN AND REPOSITION Q2H, OFFLOAD SACRALCOCCYX AND BUTTOCKS BY TURNING RIGHT AND LEFT -CONTINUE TO FOLLOW RD RECOMMENDATIONS ALL ABOVE RECOMMENDATIONS DISCUSSED WITH PRIMARY RN. PLEASE CONTACT WOUND CARE NURSE FOR ANY QUESTION AND CHANGE OF WOUND CONDITION.
--- NOTE | 2020-12-11 14:17 | NUR ---
DR RUVALCABA AT BEDSIDE EVALUATING PT.
--- NOTE | 2020-12-11 15:13 | NUR ---
12/11/20 RD INITIAL ASSESSMENT COMPLETED PLEASE REFER TO NUTRITION ASSESSMENT UNDER CARE ACTIVITY FOR ESTIMATED NUTRITIONAL NEEDS. 1. CONTINUE NPO MEDICALLY APPROPRIATE 2. CONSIDER TPN/PPN IF PATIENT IS UNABLE TO START ENTERAL NUTRITION 3. RECOMMEND MULTIVITAMIN ONCE DAILY AND VITAMIN C 500 MG BID FOR PRESSURE INJURY 4. IF/WHEN MEDICALLY APPROPRIATE TO INITIATE ENTERAL NUTRITION CONSIDER VITAL AF 1.2 @ 60 ML/HR WITH FREE WATER FLUSH OF 140 ML Q6H -THIS WILL PROVIDE 1440 ML OF VOLUME, 1167 ML OF WATER, 1728 KCAL, 108 GM OF PROTEIN WHICH MEETS 100% OF KCAL AND PROTEIN NEEDS. 5. RD TO FOLLOW-UP 2-3 DAYS, HIGH RISK JUAN PABLO LU RD
--- NOTE | 2020-12-11 16:00 | NUR ---
CONTRAST ADMINISTERED, PT TOLERATED WELL. WILL CONTINUE TO MONITOR.
[2020-12-11] MEDS: PHENYLEPHRINE 40 MG in NACL 0.9% 250 ML IV PRN (18:15)
--- NOTE | 2020-12-11 19:30 | NUR ---
RECEIVED REPORT FORM DAYSHIFT NURSE, AT [facility], FOR CONTINUITY OF CARE. PT AWAKE, OPENS EYES AND TRACKS MOVEMENTS. NON-VERBAL. FLACC 0. TRACH TO VENT, FIO2 24%. SPO2 WNL. LUNG SOUNDS DIMINISHED THROUGHOUT. +S1, S2 UPON AUSCULTATION. SR ON MONITOR. CONTINUES ON PRESSORS VIA RT FEM, TRIPLE LUMEN. SEE IV SPREADSHEET. ABDOMEN DISTENDED WITH DRAINAGE NOTED AROUND GT SITE. GTUBE IN PLACE. PT REMAINS NPO. AWAITING CT WITH ORAL CONTRAST. SKIN WARM AND DRY, NOT INTACT. SEE WOUND ASSESSMENT. BUE/BLE CONTRACTED. SAFETY PRECAUTIONS IN PLACE WITH BED LOW AND LOCKED. HOB >30 DEGREES. WILL CONT TO MONITOR FOR CHANGES.
--- NOTE | 2020-12-11 19:30 | NUR ---
ENDORSED PT TO WHEEL ALIGNMENT TECHNICIAN NURSE FARRAH FOR CONTINUOUS OF CARE.
--- NOTE | 2020-12-11 22:28 | NUR ---
TRANSFERRED PT TO CT AT THIS TIME WITH ASSISTANCE FROM RT.
--- NOTE | 2020-12-11 22:51 | NUR ---
2230 TOOK PATIENT TO CAT SCAN BAGGING PATIENT WITH 100% FIO2. REPLACED PATIENT BACK ON VENT AT 2253 WITH SAME SETTINGS
[2020-12-12] VITALS (24 sets, daily range): BP systolic 73–137; BP diastolic 40–86
[2020-12-12] MEDS: HYDRAGUARD CREAM TP SCH ×2 (01:00→12:12)
[2020-12-12] MEDS: FAMOTIDINE 20 MG/2 ML VIAL IV SCH (01:05)
[2020-12-12] MEDS: NACL 0.9% 1,000 ML IV SCH (03:59)
--- NOTE | 2020-12-12 04:54 | NUR ---
TRACH CARE DONE
[2020-12-12 06:26] LABS: BASOPHILS # (AUTO) 0.1 K/uL (0.00-0.22); BASOPHILS % (AUTO) 0.3 % (0.0-2.0); HEMATOCRIT 31.7 % (36-52); HEMOGLOBIN 10.1 g/dL (12.0-18.0); LYMPHOCYTES # (AUTO) 0.7 K/uL (2.0-11.5); LYMPHOCYTES % (AUTO) 2.5 % (20.5-51.1); MEAN CORPUSCULAR HEMOGLOBIN 29 pg (27-31); MEAN CORPUSCULAR HGB CONC 32 g/dL (33-37); MEAN CORPUSCULAR VOLUME 91.6 fL (80-94); MONOCYTES # (AUTO) 0.9 K/uL (0.8-1.0); NEUTROPHILS # (AUTO) 27.1 K/uL (1.8-7.7); NEUTROPHILS % (AUTO) 94.2 % (42.2-75.2); PLATELET COUNT (AUTO) 160 K/uL (140-450); RED BLOOD CELL COUNT(AUTO) 3.46 MIL/uL (4.20-6.10); RED CELL DISTRIBUTION WIDTH 15.4 % (11.6-13.7)
[2020-12-12 06:46] LABS: MAGNESIUM 2.8 mg/dL (1.8-2.4); PHOSPHORUS 4.7 mg/dL (2.5-4.9)
--- NOTE | 2020-12-12 07:15 | NUR ---
REPORT GIVEN TO TRACEY RN, AT WINDOW, FOR CONTINUITY OF CARE. PICC LINE PATENT AND INFUSING MEDICATIONS.
[2020-12-12 08:41] LABS: ANION GAP 25.7 (8-16); CARBON DIOXIDE 10.3 mmol/L (21-32); CREATININE 3.1 mg/dL (0.6-1.3)
[2020-12-12 08:59] LABS: WHITE BLOOD COUNT (AUTO) 28.7 K/uL (4.8-10.8)
[2020-12-12] MEDS: levETIRAcetam 500 MG in NACL 0.9% 100 ML IV SCH ×2 (09:00→22:08)
[2020-12-12] MEDS: TAMSULOSIN 0.4 MG CAP PO SCH (09:00)
[2020-12-12] MEDS: PHENobarbital 130 MG/ML VIAL IV SCH (09:00)
[2020-12-12] MEDS: carBAMazepine 200 MG TAB GT SCH ×2 (09:00→21:00)
--- NOTE | 2020-12-12 09:19 | NUR ---
CARLOS OF LAB REPORTED CRITICAL LAB RESULTS WBC 28.7, BUN 63. DR. CONNOR MADE AWARE.
[2020-12-12] MEDS ORDERED: VANCOMYCIN PER PHARMACY MC PRN (09:35)
[2020-12-12] MEDS: HYDROCORTISONE NA SUCC 100 MG/2 ML VIAL IV SCH ×3 (12:00→18:00)
[2020-12-12] MEDS: PIPERACILLIN/TAZOBACTAM 3.375 GM in DEXTROSE 5% 50 ML IV SCH ×4 (12:00→18:00)
[2020-12-12] MEDS: THERAHONEY WOUND DRESSING TP SCH (13:13)
--- NOTE | 2020-12-12 13:46 | NUR ---
npo Addendum: 12/12/20 at 1346 by Agency 07 RN RN Amended: Links added.
--- NOTE | 2020-12-12 15:30 | NUR ---
NOTIFIED ABOUT VBG AT 0800, RN CALLED LAB. CALLED LAB AGAIN, DUE TO SHORT STAFFING WILL HAVE TO WAIT UNTIL AVAILABLE.
[2020-12-12] MEDS: SODIUM BICARBONATE 8.4% 75 MEQ in DEXT 5% / NACL 0.45% 1,000 ML IV SCH ×2 (16:49→20:15)
--- NOTE | 2020-12-12 19:25 | NUR ---
RECEIVED PATIENT FROM AM SHIFT. PATIENT WAS SEEN AND ASSESSED. FOUND PT IN SUPINE POSITION. PATIENT IS TRACH WITH PORTEX SIZE 7.0 AND SECURED WITH TRACH TIE. PATIENT IS ON VENT SETTINGS: AC/VC RR 14, VT 450, PEEP 5, FiO2 24% WITH SPO2 OF 100%. AMBU BAG AT BEDSIDE. VENT IS PLUGGED IN RED OUTLET. ALARMS SET AND AUDIBLE TO ENVIRONMENT. SUCTIONED MODERATE AMOUNT OF WHITE/YELLOW THICK SECRETIONS. AIRWAY IS PATENT. AUSCULTATION REVEALS BILATERAL COARSE BREATH SOUNDS. PATIENT IS IN NO APPARENT RESPIRATORY DISTRESS AT THIS TIME. WILL CONTINUE TO MONITOR PATIENT.
--- NOTE | 2020-12-12 20:00 | NUR ---
RECEIVED REPORT FROM DAY SHIFT RN. PT IS TRACH TO VENT. A/C VC FIO2 24%, TV 450, RATE 14. LUNG SOUNDS: RONCHI. PT HAS A PACEMAKER. S1S2 NOTED. PT HAS RT FEMORAL TRIPLE LUMEN RUNNING LEVOPHED 12 MCG/MIN AND D 5 1/2 NS WITH 75 MEQ HCO3 @ 100ML/HR, ASYMPTOMATIC, AND ONE PORT HAS RESISTANCE. PT HAS A G-TUBE WITH GREEN DISCHARGE FROM INSERTION SITE, LARGE ROUND ABDOMEN, BS ACTIVE IN ALL 4 QUADRANTS. PT IS NPO AT THIS TIME. PT HAS A SACRAL PRESSURE ULCER, SCATTERED BRUISING TO BILATERAL ARMS, SKIN OTHERWISE INTACT. SAFETY MEASURES IN PLACE, WILL CONT TO ASSESS. Addendum: 12/13/20 at 0656 by Roro Benz RN RN PT HAS CONTRACTURES TO UPPER AND LOWER EXTREMITIES BILATERALLY. HAMEED CATH IN PLACE DRAINING TO GRAVITY
--- NOTE | 2020-12-12 22:00 | NUR ---
PT HAS A LARGE AMOUNT OF GREEN EMESIS AND SMALL BROWN/FORMED BM. ROUTINE CARE GIVEN, CHG BATH, HAMEED CARE, CLEAN LINENS. TURNED AND REPOSITIONED PT. SAFETY MEASURES IN PLACE, WILL CONT TO MONITOR.
[2020-12-12] MEDS: NOREPINEPHRINE 16 MG in DEXTROSE 5% 250 ML IV PRN (22:07)
[2020-12-13] VITALS (26 sets, daily range): BP systolic 88–147; BP diastolic 50–97
--- NOTE | 2020-12-13 | NUR ---
VAP ORAL CARE, TURNED AND REPOSITIONED PT, SAFETY MEASURES IN PLACE, BED LOW AND LOCKED, SIDE RAILS PADDED AND UP, CALL LIGHT WITHIN REACH, WILL CONT TO MONITOR CLOSELY.
[2020-12-13] MEDS: FAMOTIDINE 20 MG/2 ML VIAL IV SCH (01:00)
[2020-12-13] MEDS: HYDRAGUARD CREAM TP SCH ×2 (01:00→13:00)
[2020-12-13] MEDS: HYDROCORTISONE NA SUCC 100 MG/2 ML VIAL IV SCH ×3 (01:00→14:10)
[2020-12-13] MEDS: PIPERACILLIN/TAZOBACTAM 3.375 GM in DEXTROSE 5% 50 ML IV SCH ×2 (01:01→06:27)
--- NOTE | 2020-12-13 02:00 | NUR ---
NO S/S OF DISTRESS NOTED, TURNED REPOSITIONED PT, WILL CONT TO MONITOR.
--- NOTE | 2020-12-13 04:00 | NUR ---
PT HAD LARGE BM, AND X1 EPISODE OF URINE INCONTINENCE. CLEANSED WOUND CARE ON SACRAL AREA, HAMEED CARE, NEW LINEN, VAP ORAL CARE. LARGE GREEN GASTRIC DISCHARGE FROM G-TUBE SITE, PT'S G-TUBE FELL OUT DURING ROUTINE CLEANING, CLEANSED AND REINSERTED AND TAPED DOWN WITH GAUZE, ATTACHED TO LOW INTERMITTENT SUCTION. SAFETY MEASURES IN PLACE, CALL LIGHT WITHIN REACH, TV ON FOR PT. WILL CONT TO MONITOR CLOSELY.
--- NOTE | 2020-12-13 06:00 | NUR ---
PTs CONDITION REMAINS UNCHANGED. TURNED AND REPOSITIONED PT, SAFETY MEASURES IN PLACE, BED LOW AND LOCKED, SIDE RAILS PADDED AND UP, CALL LIGHT WITHIN REACH, WILL CONT TO MONITOR CLOSELY.
[2020-12-13 06:12] LABS: BASOPHILS % (AUTO) 0.2 % (0.0-2.0); HEMATOCRIT 32.3 % (36-52); HEMOGLOBIN 10.3 g/dL (12.0-18.0); LYMPHOCYTES # (AUTO) 0.6 K/uL (2.0-11.5); LYMPHOCYTES % (AUTO) 2.4 % (20.5-51.1); MEAN CORPUSCULAR HEMOGLOBIN 29 pg (27-31); MEAN CORPUSCULAR HGB CONC 32 g/dL (33-37); MEAN CORPUSCULAR VOLUME 91.4 fL (80-94); MONOCYTES # (AUTO) 0.6 K/uL (0.8-1.0); MONOCYTES % (AUTO) 2.6 % (1.7-9.3); NEUTROPHILS % (AUTO) 94.8 % (42.2-75.2); PLATELET COUNT (AUTO) 142 K/uL (140-450); RED BLOOD CELL COUNT(AUTO) 3.53 MIL/uL (4.20-6.10); RED CELL DISTRIBUTION WIDTH 15.1 % (11.6-13.7); WHITE BLOOD COUNT (AUTO) 24.3 K/uL (4.8-10.8)
[2020-12-13 06:42] LABS: ANION GAP 22.8 (8-16); CARBON DIOXIDE 15.6 mmol/L (21-32); CREATININE 2.9 mg/dL (0.6-1.3); POTASSIUM 3.4 mmol/L (3.5-5.1)
--- NOTE | 2020-12-13 07:05 | NUR ---
RECEIVED CRITICAL LAB BUN 65. PAGED DR YURIDIA ALEXANDER. AWAITING CALL BACK.
[2020-12-13] MEDS ORDERED: VANCOMYCIN 1,000 MG in DEXTROSE 5% 250 ML IV SCH (08:00)
[2020-12-13] MEDS: carBAMazepine 200 MG TAB GT SCH ×2 (09:00→21:00)
[2020-12-13] MEDS: PHENobarbital 130 MG/ML VIAL IV SCH (09:00)
[2020-12-13] MEDS: TAMSULOSIN 0.4 MG CAP PO SCH (09:00)
[2020-12-13] MEDS: levETIRAcetam 500 MG in NACL 0.9% 100 ML IV SCH ×2 (10:42→21:36)
--- NOTE | 2020-12-13 11:00 | NUR ---
12/13/20 RD FOLLOW UP COMPLETED PLEASE REFER TO NUTRITION ASSESSMENT UNDER CARE ACTIVITY FOR ESTIMATED NUTRITIONAL NEEDS. 1. CONSIDER TPN/PPN IF PATIENT IS UNABLE TO START ENTERAL NUTRITION 2. RECOMMEND MULTIVITAMIN ONCE DAILY AND VITAMIN C 500 MG BID FOR PRESSURE INJURY 3. IF/WHEN MEDICALLY APPROPRIATE TO INITIATE ENTERAL NUTRITION CONSIDER VITAL AF 1.2 @ 60 ML/HR WITH FREE WATER FLUSH OF 140 ML Q6H -THIS WILL PROVIDE 1440 ML OF VOLUME, 1167 ML OF WATER, 1728 KCAL, 108 GM OF PROTEIN WHICH MEETS 100% OF KCAL AND PROTEIN NEEDS. 4. RD TO FOLLOW-UP 2-3 DAYS, HIGH RISK JUAN PABLO LU RD
--- NOTE | 2020-12-13 12:31 | NUR ---
DISCHARGE PLANNING: THIS IS A 45 Y/O MALE PATIENT BIBA FROM [facility], DUE TO ALOC. PAST MEDICAL HISTORY INCLUDE CEREBRAL PALSY, GERD, EPILEPSY, SACRAL ULCER, CHRONIC RESPIRATORY FAILURE TRACH DEPENDENT, DYSPHAGIA WITH G TUBE. INITIAL DIAGNOSIS OF NSTEMI, HYPOTENSION, SEPTIC SHOCK. CURRENT LABS INCLUDE WBC 24.3, H/H 10.3/32.3, NA/K 150/3.4, BUN/CREA 65/2.9, TROP 0.606. COVID RAPID AND PCR NEGATIVE. TRACH TO VENT, FIO2 24%, PEEP 5, O2 SAT 98%. ON IV KEPPRA, VANCOMYCIN, SOLU CORTEF. PULMO, NEPHRO, CARDIO AND SURGICAL CONSULTS IN PLACE. SEEN BY SURGERY - WILL REVIEW CT ABD AND PELVIS; GT UBE TO GRAVITY DRAIN. CT ABD/PELVIS SHOWED DISTENDED SMALL BOWEL LOOPS, BASILAR DISEASE WITH LEFT SIDED PLEURAL EFFUSION. DC PLAN BACK TO [facility] ONCE STABLE. Addendum: 12/18/20 at 1133 by Kendra Tipton CM CHRONIC TRACH TO VENT - FIO2 24%, PEEP 5, O2 SAT 100%. ON VANCOMYCIN, MEROPENEM, KEPPRA IV. ON MIDODRINE. PER PULMO - CONTINUE FULL MECHANICAL VENTILATORY SUPPORT, OVERALL PROGNOSIS POOR AND GUARDED WITH MULTISYSTEM ORGAN FAILURE. PER NEPHRO - NO REQUIREMENT FOR SULFURIC ACID PLANT OPERATOR AT THIS TIME. Addendum: 12/21/20 at 1148 by Umberto VEGA JOY FAXED CLINICALS FOR PATIENT AND CONTACTED [facility] AND SPOKE TO MARY. PER MARY, PATIENT WILL BE RETURNING TO ROOM 5A UNDER ACCEPTING PHYSICIAN DR. RIGOBERTO KOVACS. MARY REQUESTED FOR JOY TO CONTACT HER BEFORE PATIENT IS TRANSPORTED. Addendum: 12/21/20 at 1253 by Umberto VEGA JOY CONTACTED [facility] AND SPOKE TO ALYSSA WHO STATED PATIENT CAN BE DISCHARGED TO [facility] AT ANY TIME. JOY CONTACTED NOMAN FROM [facility] [phone] AND SCHEDULED TRANSPORTATION FOR 1400. JOY NOTIFIED GUILLERMO GUZMAN. PATIENT WILL BE GOING TO ROOM 5A UNDER RIGOBERTO KOVACS. Addendum: 12/21/20 at 1309 by Umberto Velázquez SS SW WAS INFORMED THAT PATIENT WILL BE DISCHARGED AFTER ECHOCARDIOGRAM. JOY CONTACTED [facility] AND CHANGED TRANSPORTATION TIME TO 3PM. JOY CONTACTED PATIENT'S MOTHER AND LEFT STATING THAT PATIENT WILL BE RETURNING TO [facility].
[2020-12-13] MEDS: THERAHONEY WOUND DRESSING TP SCH (13:00)
[2020-12-13] MEDS: MEROPENEM 1,000 MG in NACL 0.9% 100 ML IV SCH ×2 (14:13→22:16)
[2020-12-13] MEDS: SODIUM BICARBONATE 8.4% 50 MEQ in DEXTROSE 5% 1,000 ML IV SCH ×2 (15:03→19:30)
--- NOTE | 2020-12-13 20:00 | NUR ---
RECEIVED REPORT FROM DAY SHIFT RN. PT IS TRACH TO VENT. A/C VC FIO2 24%, TV 450, RATE 14. LUNG SOUNDS: RONCHI. PT HAS A PACEMAKER. S1S2 NOTED. PT HAS RT FEMORAL TRIPLE LUMEN RUNNING LEVOPHED 4 MCG/MIN AND D 5 1/2 NS WITH 75 MEQ HCO3 @ 100ML/HR, ASYMPTOMATIC, AND PATENT. PT HAS A DRESSING OVER INSERTION SITE FROM WHERE THE G-TUBE WAS, NO DISCHARGE NOTED. LARGE ROUND ABDOMEN, BS ACTIVE IN ALL 4 QUADRANTS. PT IS NPO AT THIS TIME. HAMEED CATH IN PLACE DRAINING TO GRAVITY. PT HAS A SACRAL PRESSURE ULCER, SCATTERED BRUISING TO BILATERAL ARMS, SKIN OTHERWISE INTACT. PT HAS CONTRACTURES TO UPPER AND LOWER EXTREMITIES BILATERALLY. SAFETY MEASURES IN PLACE, WILL CONT TO ASSESS. Addendum: 12/14/20 at 0021 by Roro Benz RN RN WRONG G-TUBE ASSESSMENT. PT HAS OSTOMY BAG SURROUNDING INSERTION SITE, 325 ML OF GREEN GASTRIC CONTENT.
--- NOTE | 2020-12-13 22:00 | NUR ---
TURNED AND REPOSITIONED PT, PT TOLERATED IT WELL. CHANGED THE CHANNEL ON THE TV. SAFETY MEASURES IN PLACE, BED LOW AND LOCKED, SIDE RAILS PADDED AND UP, CALL LIGHT WITHIN REACH, WILL CONT TO MONITOR CLOSELY.
[2020-12-14] VITALS (27 sets, daily range): BP systolic 88–136; BP diastolic 42–83
--- NOTE | 2020-12-14 | NUR ---
VAP ORAL CARE GIVEN, TURNED AND REPOSITIONED PT. TURNED OFF TV. SAFETY MEASURES IN PLACE, WILL CONT TO MONITOR.
[2020-12-14] MEDS: HYDRAGUARD CREAM TP SCH ×2 (01:00→12:20)
[2020-12-14] MEDS: FAMOTIDINE 20 MG/2 ML VIAL IV SCH (01:06)
--- NOTE | 2020-12-14 02:00 | NUR ---
TURNED AND REPOSITIONED PT. PT TOLERATED IT WELL. MONITORING PTs BP CLOSELY. SAFETY MEASURES IN PLACE
[2020-12-14] MEDS: SODIUM BICARBONATE 8.4% 50 MEQ in DEXTROSE 5% 1,000 ML IV SCH ×2 (03:07→15:14)
--- NOTE | 2020-12-14 03:10 | NUR ---
bicarb drip replaced. pt in bed. VSS. levophed running at 4mcg/min. no other needs at this time.
--- NOTE | 2020-12-14 04:00 | NUR ---
ROUTINE CARE GIVEN, CHG BATH, HAMEED CARE, VAP ORAL CARE. SMALL BM, CLEANED AND PERFORMED WOUND CARE ON SACRAL WOUND. REPOSITIONED PT. NO S/S OF DISTRESS NOTED. SAFETY MEASURES IN PLACE
[2020-12-14] MEDS: HYDROCORTISONE NA SUCC 100 MG/2 ML VIAL IV SCH ×4 (05:57→17:05)
--- NOTE | 2020-12-14 06:00 | NUR ---
PTs CONDITION REMAINS UNCHANGED, SAFETY MEASURES IN PLACE, BED LOW AND LOCKED WITH PADDED SIDE RAILS, HOB AT 30 DEGREES, CALL LIGHT WITHIN REACH, ROOM FREE OF CLUTTER.
[2020-12-14 07:15] LABS: BASOPHILS % (AUTO) 0.2 % (0.0-2.0); EOSINOPHILS % (AUTO) 0.1 % (0.0-4.0); HEMATOCRIT 26.2 % (36-52); HEMOGLOBIN 8.4 g/dL (12.0-18.0); LYMPHOCYTES # (AUTO) 0.9 K/uL (2.0-11.5); LYMPHOCYTES % (AUTO) 5.6 % (20.5-51.1); MEAN CORPUSCULAR HEMOGLOBIN 29 pg (27-31); MEAN CORPUSCULAR HGB CONC 32 g/dL (33-37); MEAN CORPUSCULAR VOLUME 90.5 fL (80-94); MONOCYTES # (AUTO) 0.7 K/uL (0.8-1.0); MONOCYTES % (AUTO) 4.6 % (1.7-9.3); NEUTROPHILS # (AUTO) 14.2 K/uL (1.8-7.7); NEUTROPHILS % (AUTO) 89.5 % (42.2-75.2); PLATELET COUNT (AUTO) 149 K/uL (140-450); RED BLOOD CELL COUNT(AUTO) 2.89 MIL/uL (4.20-6.10); RED CELL DISTRIBUTION WIDTH 14.6 % (11.6-13.7); WHITE BLOOD COUNT (AUTO) 15.9 K/uL (4.8-10.8)
[2020-12-14] MEDS: levETIRAcetam 500 MG in NACL 0.9% 100 ML IV SCH ×2 (08:16→21:54)
[2020-12-14] MEDS: MEROPENEM 1,000 MG in NACL 0.9% 100 ML IV SCH ×2 (08:17→21:53)
[2020-12-14] MEDS: PHENobarbital 130 MG/ML VIAL IV SCH (08:17)
[2020-12-14] MEDS: carBAMazepine 200 MG TAB GT SCH ×2 (08:18→21:00)
[2020-12-14] MEDS: TAMSULOSIN 0.4 MG CAP PO SCH (08:18)
[2020-12-14 08:50] LABS: ANION GAP 18.5 (8-16); CARBON DIOXIDE 17.3 mmol/L (21-32); CREATININE 2.7 mg/dL (0.6-1.3)
[2020-12-14 09:12] LABS: POTASSIUM 2.8 mmol/L (3.5-5.1)
[2020-12-14] MEDS ORDERED: KCL 20 MEQ/WATER INJ PREMIX 200 ML IV SCH (11:00)
[2020-12-14] MEDS: NOREPINEPHRINE 16 MG in DEXTROSE 5% 250 ML IV PRN (12:03)
[2020-12-14] MEDS: THERAHONEY WOUND DRESSING TP SCH (12:20)
[2020-12-14] MEDS: VANCOMYCIN 1,000 MG in DEXTROSE 5% 250 ML IV SCH (12:20)
--- NOTE | 2020-12-14 20:00 | NUR ---
PATIENT WAS ACCEPTED AND ASSESS DONE , PATIENT IS AWAKE RESPOND TO SOME SIMPLE COMMANDS , PATIENT IS NOT COVID-19 REGULAR ICU WITH STAND CARE OF ISOLATION STABLE PATIENT IS FROM AN CORRECTION IS TRSCH DEPENDENT ON VENT. NOTICE THICK SECRETION FROM AROUND THE TRACH TRY TO CLEAN AND SUCTION THEN THE PATIENT BECAME VERY AGITATE SHACK HIS HEAD AND TRYING TO BITE DO NOW WHAT IS WRONG WITH THE PATIENT ,THE COLOSTOMY BAG OVER THE STOMA WHERE THE PEG TUBE THERE WERE LEAKAGE OF YELLOW GREEN DRAINAGE OVER THE ABDOMEN , WAS GIVEN BATH AND AN NEW BAG WAS APPLIED IS NOW WORKING BETTER NOW WILL CONTINUED WITH PLAN OF CARE,
[2020-12-15] VITALS (30 sets, daily range): BP systolic 79–145; BP diastolic 51–89
[2020-12-15] MEDS: HYDROCORTISONE NA SUCC 100 MG/2 ML VIAL IV SCH ×4 (00:22→18:57)
[2020-12-15] MEDS: FAMOTIDINE 20 MG/2 ML VIAL IV SCH (00:22)
[2020-12-15] MEDS: HYDRAGUARD CREAM TP SCH ×2 (01:00→13:00)
--- NOTE | 2020-12-15 02:00 | NUR ---
PATIENT WAS WATCHING TV AND AND SOME TIME WILL TRIED TO SLEEP , PATIENT HAS AN HAMEED CLOUDY DARK MORGAN COLOR MODERN AMOUNT LESS AGITATED , WILL CONTINUED WITH PLAN OF CARE , STABLE
--- NOTE | 2020-12-15 03:16 | NUR ---
CALLED [facility] PHARMACIST FOR SODIUM BICARB 8.4% 50 MEQ, POTASSIUM CHLORIDE 20MEQ IN D5 1000ML, [facility]IL STATED TO WAIT UNTIL IN THE MORNING WHEN THE PHARMACY OPENS
[2020-12-15 06:19] LABS: BASOPHILS % (AUTO) 0.1 % (0.0-2.0); EOSINOPHILS % (AUTO) 0.1 % (0.0-4.0); HEMOGLOBIN 9.3 g/dL (12.0-18.0); LYMPHOCYTES # (AUTO) 0.7 K/uL (2.0-11.5); LYMPHOCYTES % (AUTO) 5.3 % (20.5-51.1); MEAN CORPUSCULAR HEMOGLOBIN 29 pg (27-31); MEAN CORPUSCULAR HGB CONC 32 g/dL (33-37); MEAN CORPUSCULAR VOLUME 89.9 fL (80-94); MONOCYTES # (AUTO) 0.6 K/uL (0.8-1.0); MONOCYTES % (AUTO) 4.4 % (1.7-9.3); NEUTROPHILS # (AUTO) 11.2 K/uL (1.8-7.7); NEUTROPHILS % (AUTO) 90.1 % (42.2-75.2); PLATELET COUNT (AUTO) 241 K/uL (140-450); RED BLOOD CELL COUNT(AUTO) 3.22 MIL/uL (4.20-6.10); RED CELL DISTRIBUTION WIDTH 14.5 % (11.6-13.7); WHITE BLOOD COUNT (AUTO) 12.4 K/uL (4.8-10.8)
[2020-12-15 06:42] LABS: ANION GAP 16.5 (8-16); CARBON DIOXIDE 21.8 mmol/L (21-32); CREATININE 2.2 mg/dL (0.6-1.3); POTASSIUM 3.3 mmol/L (3.5-5.1)
--- NOTE | 2020-12-15 07:30 | NUR ---
RECEIVED REPORT FROM [employer] SALES REPRESENTATIVE NURSE JENNIFER FOR CONTINUITY OF CARE. PATIENT IS RESTING ON BED COMFORTABLY ON BED, FLACC 0, AROUSABLE TO VOICE, EYES OPEN, APHASIC, RESPIRATION EVEN AND UNLABORED ON TRACH TO VENT, SETTING: AC/VC FIO2 24%, TV 450, RATE 14, PEEP 5, SPO2 AT 98%. LUNG SOUNDS DIMINISHED ON AUSCULTATION. NO SIGNS OF ACUTE DISTRESS NOTED. PACEMAKER IN PLACE. S1S2 ON AUSCULTATION. IV ON R FEMORAL TRIPLE LUMEN, CLEAN AND INTACT, RUNNING LEVOPHED 4 MCG/MIN AND D5 SODIUM BICARBONATE 100ML/HR. PER REPORT, G-TUBE WAS REMOVED BY PREVIOUS DAY SHIFT NURSE AND OSTOMY BAG APPLIED TO G-SITE, GREENISH DRAINAGE IN BAG NOTE. ABDOMEN ROUND AND NON-DISTENDED. SKIN WARM TO TOUCH, SACRAL WOUND NOTED. HAMEED CATH IN PLACE DRAINING TO GRAVITY. CONTRACTURES TO UPPER AND LOWER EXTREMITIES BILATERALLY. FALL RISK PRECAUTION, ASPIRATION PRECAUTION, PRESSURE ULCER PRECAUTION IN PLACE. BED IN LOW POSITION, HOB SLIGHTLY ELEVATED, AND BED LOCKED.
--- NOTE | 2020-12-15 07:59 | NUR ---
RECEIVED CRITICAL LAB FOR SODIUM 156, ARNOLD VAUGHN, DOCUMENT CONTROL SPECIALIST MD IS DR DOSS, AWAITING FOR DR DOSS TO CALL BACK.
--- NOTE | 2020-12-15 08:35 | NUR ---
RECEIVED CALL BACK FROM DR DOSS, DR DOSS MADE AWARE OF AM BMP, RECEIVED TORB ORDERS FOR D5W 100 ML/HR AND 20 MEQ K-RIDER VIA IV. REPEATED AND CONFIRMED ORDERS WITH DR DOSS, AND WILL INPUT ACCORDINGLY.
[2020-12-15] MEDS ORDERED: DEXTROSE 5% 1,000 ML IV SCH (08:40)
[2020-12-15] MEDS ORDERED: KCL 20 MEQ/WATER INJ PREMIX 100 ML IV SCH (08:42)
[2020-12-15] MEDS: PHENobarbital 130 MG/ML VIAL IV SCH (09:00)
[2020-12-15] MEDS ORDERED: SODIUM BICARBONATE IV SCH (09:00)
[2020-12-15] MEDS ORDERED: POTASSIUM CHLORIDE IV SCH (09:00)
[2020-12-15] MEDS ORDERED: DEXTROSE 5% IV SCH (09:00)
[2020-12-15] MEDS: TAMSULOSIN 0.4 MG CAP PO SCH (09:00)
[2020-12-15] MEDS: MEROPENEM 1,000 MG in NACL 0.9% 100 ML IV SCH ×2 (09:00→20:08)
[2020-12-15] MEDS: levETIRAcetam 500 MG in NACL 0.9% 100 ML IV SCH ×2 (09:32→20:27)
--- NOTE | 2020-12-15 09:32 | NUR ---
ADMINISTERED SCHEDULED KEPPRA VIA IVP AND K-RIDER FOR LOW POTASSIUM 3.3L FROM AM LAB, UNABLE TO GIVE PO/GT MEDS DUE TO G-TUBE OUT. DR EDGAR MADE AWARE DURING AM ROUNDING. PROVIDED AM HYGIENE CARE, ORAL CARE, SUCTIONING, HAMEED CARE AND CHG BATH, PATIENT TOLERATED FAIR. REPOSITIONED PATIENT AND OFFLOADED PRESSURE WITH PILLOWS, PATIENT AWAKE AND WATCHING TV, FLACC 0. RESPIRATION EVEN AND UNLABORED ON TRACH TO VENT. SAFETY MEASURES IN PLACE.
[2020-12-15] MEDS: carBAMazepine 200 MG TAB GT SCH ×2 (09:36→20:27)
--- NOTE | 2020-12-15 10:40 | NUR ---
DR BAUER IS ROUNDING ON PATIENT. NOTIFIED OUT OF D5W, BUT WE HAVE D2W 0.[address] BAUER, IT'S OK TO CHANGE TO D5W 0.20 SODIUM CHLORIDE 150 ML/HR. WILL CHANGE ORDER PER MD ORDER.
--- NOTE | 2020-12-15 10:45 | NUR ---
DR GUTIERREZ IS ROUNDING ON PATIENT.
[2020-12-15] MEDS: DEXTROSE 5% 1,000 ML IV SCH ×2 (10:49→17:25)
[2020-12-15] MEDS: VANCOMYCIN 1,000 MG in DEXTROSE 5% 250 ML IV SCH (12:38)
[2020-12-15] MEDS: MIDODRINE 5 MG TAB PO SCH ×2 (13:00→20:27)
[2020-12-15] MEDS: THERAHONEY WOUND DRESSING TP SCH (13:00)
--- NOTE | 2020-12-15 14:09 | NUR ---
12/15/20 RD FOLLOW UP COMPLETED PLEASE REFER TO NUTRITION ASSESSMENT UNDER CARE ACTIVITY FOR ESTIMATED NUTRITIONAL NEEDS. 1. IF/WHEN MEDICALLY APPROPRIATE TO INITIATE ENTERAL NUTRITION CONSIDER VITAL AF 1.2 @ 60 ML/HR WITH FREE WATER FLUSH OF 140 ML Q6H -THIS WILL PROVIDE 1440 ML OF VOLUME, 1167 ML OF WATER, 1728 KCAL, 108 GM OF PROTEIN WHICH MEETS 100% OF KCAL AND PROTEIN NEEDS. 2. RECOMMEND MULTIVITAMIN ONCE DAILY AND VITAMIN C 500 MG BID FOR PRESSURE INJURY 3. RD TO FOLLOW-UP 2-3 DAYS, HIGH RISK JUAN PABLO LU RD
--- NOTE | 2020-12-15 14:10 | NUR ---
WOUND CARE PROVIDED, WITH ASSIST, REPOSITIONED PATIENT, OFFLOADED PRESSURE WITH PILLOWS. UNABLE TO GIVE SCHEDULED MIDODRINE DUE TO G-TUBE IS OUT. SAFETY MEASURES IN PLACE.
--- NOTE | 2020-12-15 14:20 | NUR ---
DR RUVALCABA IS ROUNDING ON PATIENT. INFORMED DR RUVALCABA THAT G-TUBE IS OUT. PER DR RUVALCABA, CONTACT DR FRANCE FOR G-PLACEMENT, IF DR FRANCE IS UNABLE TO DO IT, THEN DR RUVALCABA WILL TAKE CARE OF IT. WILL PAGE DR FRANCE.
--- NOTE | 2020-12-15 14:51 | NUR ---
CALLED AND SPOKE WITH DR FRANCE, INFORMED THAT PATIENT'S G-TUBE IS OUT AND NEED TO PLACE A NEW ONE, DR FRANCE WAS AWARE AND SAID " I WILL LOOK INTO IT".
--- NOTE | 2020-12-15 16:05 | NUR ---
DR FRANCE IS AT BEDSIDE AND INSERTED A 22 FR G-TUBE, WILL ORDER KUB TO CONFIRM PLACEMENT.
[2020-12-15] MEDS ORDERED: SODIUM PHOSPHATE 118 ML ENEM RC SCH (16:15)
--- NOTE | 2020-12-15 19:22 | NUR ---
PATIENT HAS ONE SOFT MODERATE YELLOW BM, CHANGE ALL DIRTY, AND REPOSITIONED PATIENT AND OFFLOADED PRESSURE WITH PILLOWS, SAFETY MEASURES IN PLACE.
--- NOTE | 2020-12-15 20:00 | NUR ---
RECEIVED REPORT FROM DAY SHIFT NURSE. PT TRACH TO VENT. FIO2-24%, PEEP-5, TV-450, RATE-14. RESPIRATION EVEN AND UNLABORED. SYMMETRICAL CHEST EXPANSION. ORAL MUCOSA PINK AND MOIST. RIGHT FEMORAL TRIPLE LUMEN CATH INFUSING LEVOPHED @ 4 MCG/MIN, D5W 0.20 NS@ 150ML/HR. LINE ASYMPTOMATIC PATENT AND INTACT. SKIN WARM AND DRY. PRESSURE ULCER ON THE SACRAL AREA OBSERVED. OPTIFOAM DRESSING REINFORCED. BED IN LOWEST POSITION, SIDE RAILS UP, SAFETY PRECAUTIONS OBSERVED. WILL CONTINUE TO MONITOR.
[2020-12-15] MEDS ORDERED: CRUSHER, PILL MC ONE (20:12)
--- NOTE | 2020-12-15 22:00 | NUR ---
TURNED AND REPOSITIONED. PRESSURE AREAS OFFLOADED. WILL CONTINUE TO MONITOR.
[2020-12-16] VITALS (27 sets, daily range): BP systolic 91–135; BP diastolic 54–95
--- NOTE | 2020-12-16 | NUR ---
PATIENT CONDITION REMAINS UNCHANGED. WILL CONTINUE TO MONITOR
[2020-12-16] MEDS: DEXTROSE 5% 1,000 ML IV SCH ×4 (00:05→18:18)
[2020-12-16] MEDS: FAMOTIDINE 20 MG/2 ML VIAL IV SCH (01:05)
[2020-12-16] MEDS: HYDRAGUARD CREAM TP SCH ×2 (02:37→12:30)
--- NOTE | 2020-12-16 04:00 | NUR ---
MORNING CARE PROVIDED. MARIOLA CARE, HAMEED CARE, VAP CARE PROVIDED. WILL CONTINUE TO MONITOR.
--- NOTE | 2020-12-16 04:54 | NUR ---
0310 TRACH CARE DONE
[2020-12-16] MEDS: MIDODRINE 5 MG TAB PO SCH ×3 (05:00→20:52)
[2020-12-16] MEDS: HYDROCORTISONE NA SUCC 100 MG/2 ML VIAL IV SCH ×4 (06:00→18:13)
[2020-12-16 06:47] LABS: BASOPHILS % (AUTO) 0.2 % (0.0-2.0); EOSINOPHILS # (AUTO) 0.2 K/uL (0-0.4); EOSINOPHILS % (AUTO) 1.7 % (0.0-4.0); HEMATOCRIT 30.1 % (36-52); HEMOGLOBIN 9.7 g/dL (12.0-18.0); LYMPHOCYTES # (AUTO) 1.4 K/uL (2.0-11.5); LYMPHOCYTES % (AUTO) 14.9 % (20.5-51.1); MEAN CORPUSCULAR HEMOGLOBIN 29 pg (27-31); MEAN CORPUSCULAR HGB CONC 32 g/dL (33-37); MEAN CORPUSCULAR VOLUME 90.1 fL (80-94); MONOCYTES # (AUTO) 0.7 K/uL (0.8-1.0); MONOCYTES % (AUTO) 7.9 % (1.7-9.3); NEUTROPHILS % (AUTO) 75.3 % (42.2-75.2); PLATELET COUNT (AUTO) 307 K/uL (140-450); RED BLOOD CELL COUNT(AUTO) 3.34 MIL/uL (4.20-6.10); RED CELL DISTRIBUTION WIDTH 14.6 % (11.6-13.7); WHITE BLOOD COUNT (AUTO) 9.3 K/uL (4.8-10.8)
[2020-12-16 06:49] LABS: ANION GAP 12.3 (8-16); CARBON DIOXIDE 22.3 mmol/L (21-32); CREATININE 1.9 mg/dL (0.6-1.3)
[2020-12-16 06:51] LABS: PHOSPHORUS 4.1 mg/dL (2.5-4.9)
[2020-12-16 07:21] LABS: POTASSIUM 2.6 mmol/L (3.5-5.1)
[2020-12-16] MEDS: TAMSULOSIN 0.4 MG CAP PO SCH (08:38)
[2020-12-16] MEDS: carBAMazepine 200 MG TAB GT SCH ×2 (08:39→20:53)
[2020-12-16] MEDS ORDERED: POTASSIUM CHLORIDE 20 MEQ in DEXTROSE 5% 1,000 ML IV SCH (08:40)
[2020-12-16] MEDS: levETIRAcetam 500 MG in NACL 0.9% 100 ML IV SCH ×2 (08:40→21:42)
[2020-12-16] MEDS: PHENobarbital 130 MG/ML VIAL IV SCH (08:45)
[2020-12-16] MEDS: MEROPENEM 1,000 MG in NACL 0.9% 100 ML IV SCH ×2 (08:47→20:27)
[2020-12-16] MEDS: POTASSIUM CHLORIDE 40 MEQ, LIDOCAINE MPF 1% 25 MG in NACL 0.9% 250 ML IV PRN ×2 (10:09→18:20)
--- NOTE | 2020-12-16 11:38 | NUR ---
RECEIVED CRITICAL LAB FOR VANCO TROUGH 24.1, PRIMARY RN SANDHYA MADE AWARE AND PHARMACIST NOTIFIED FOR DOSAGE ADJUST.
[2020-12-16] MEDS: THERAHONEY WOUND DRESSING TP SCH (12:31)
--- NOTE | 2020-12-16 14:45 | NUR ---
CALLED CT SCAN AND SPOKE WITH CAMRON AND INFORMED THAT PATIENT HAS A CT SCAN FOR ABD, CAMRON WAS AWARE AND SAID THAT HE IS GETTING OFF IN 10 MINS, HE WILL ENDORSE TO THE ONCOMING STAFF TO CALL ICU TO COORDINATE, AWAITING FOR CT SCAN PERSONNEL. RT KING NOTIFIED FOR CT SCAN TRANSPORT WELL.
--- NOTE | 2020-12-16 16:12 | NUR ---
PATIENT CAME BACK FROM CT SCAN, POLYSOMNOGRAPH TECH AND PULSE MONITOR IN PLACE.
[2020-12-16] MEDS: NOREPINEPHRINE 16 MG in DEXTROSE 5% 250 ML IV PRN (18:15)
[2020-12-16] MEDS: POLYETHYLENE GLYCOL 17 GM/PKT GT SCH (20:54)
[2020-12-17] VITALS (24 sets, daily range): BP systolic 88–125; BP diastolic 51–83
[2020-12-17] MEDS: HYDROCORTISONE NA SUCC 100 MG/2 ML VIAL IV SCH ×5 (00:24→23:52)
[2020-12-17] MEDS: FAMOTIDINE 20 MG/2 ML VIAL IV SCH (00:25)
[2020-12-17] MEDS: DEXTROSE 5% 1,000 ML IV SCH (00:29)
[2020-12-17] MEDS: HYDRAGUARD CREAM TP SCH ×2 (01:00→13:00)
[2020-12-17] MEDS: MIDODRINE 5 MG TAB PO SCH ×3 (05:39→20:16)
--- NOTE | 2020-12-17 07:30 | NUR ---
RECEIVED REPORT FROM AMADO RN PATIENT IN BED HAS TRACH TO VENT, HAS TLC LINE ON RT FEMORAL. NEWLTY INSERTED GTUBE CLAMPED. HAMEED CATH DRAIN CLEAR YELLOW URINE.
[2020-12-17] MEDS: carBAMazepine 200 MG TAB GT SCH ×2 (08:32→20:14)
[2020-12-17] MEDS: POLYETHYLENE GLYCOL 17 GM/PKT GT SCH ×2 (08:32→20:17)
[2020-12-17] MEDS: PHENobarbital 130 MG/ML VIAL IV SCH (08:32)
[2020-12-17] MEDS: TAMSULOSIN 0.4 MG CAP PO SCH (08:33)
[2020-12-17] MEDS: MEROPENEM 1,000 MG in NACL 0.9% 100 ML IV SCH ×2 (08:34→21:16)
[2020-12-17] MEDS: levETIRAcetam 500 MG in NACL 0.9% 100 ML IV SCH ×2 (08:35→20:18)
[2020-12-17 09:47] LABS: HEMATOCRIT 32.3 % (36-52); HEMOGLOBIN 10.4 g/dL (12.0-18.0); MEAN CORPUSCULAR HEMOGLOBIN 29 pg (27-31); MEAN CORPUSCULAR HGB CONC 32 g/dL (33-37); MEAN CORPUSCULAR VOLUME 89.4 fL (80-94); PLATELET COUNT (AUTO) 390 K/uL (140-450); RED BLOOD CELL COUNT(AUTO) 3.61 MIL/uL (4.20-6.10); RED CELL DISTRIBUTION WIDTH 14.6 % (11.6-13.7); WHITE BLOOD COUNT (AUTO) 12.5 K/uL (4.8-10.8)
[2020-12-17 09:59] LABS: CREATININE 1.5 mg/dL (0.6-1.3); POTASSIUM 3.5 mmol/L (3.5-5.1)
[2020-12-17 10:21] LABS: ANION GAP 13.5 (8-16)
[2020-12-17 10:25] LABS: BASOPHILS % (MANUAL) 0 % (0-2); EOSINOPHILS % (MANUAL) 0 % (0-4); LYMPHOCYTES % (MANUAL) 15 % (20-46); MONOCYTES % (MANUAL) 10 % (5-12)
[2020-12-17] MEDS: VANCOMYCIN 1,000 MG in DEXTROSE 5% 250 ML IV SCH (12:00)
--- NOTE | 2020-12-17 12:12 | NUR ---
SEEN BY DR EDGAR NO ORDER CHANGED
--- NOTE | 2020-12-17 12:30 | NUR ---
SEEN BY DR GUTIERREZ NO ORDER CHANGE.
[2020-12-17] MEDS: THERAHONEY WOUND DRESSING TP SCH (13:00)
--- NOTE | 2020-12-17 17:00 | NUR ---
RESUME FEEDING STARTED AT [facility]/HR.
--- NOTE | 2020-12-17 19:16 | NUR ---
REPORT GIVE TO AMADO LI.
[2020-12-18] VITALS (38 sets, daily range): BP systolic 62–141; BP diastolic 40–90
[2020-12-18] MEDS: FAMOTIDINE 20 MG/2 ML VIAL IV SCH (00:39)
[2020-12-18] MEDS: HYDRAGUARD CREAM TP SCH ×2 (01:00→13:08)
[2020-12-18] MEDS: MIDODRINE 5 MG TAB PO SCH ×3 (04:44→20:32)
[2020-12-18] MEDS: HYDROCORTISONE NA SUCC 100 MG/2 ML VIAL IV SCH ×4 (06:03→23:30)
[2020-12-18 06:12] LABS: BASOPHILS % (AUTO) 0.2 % (0.0-2.0); EOSINOPHILS # (AUTO) 0.2 K/uL (0-0.4); EOSINOPHILS % (AUTO) 1.1 % (0.0-4.0); HEMATOCRIT 33.7 % (36-52); HEMOGLOBIN 10.8 g/dL (12.0-18.0); LYMPHOCYTES # (AUTO) 1.3 K/uL (2.0-11.5); LYMPHOCYTES % (AUTO) 9.3 % (20.5-51.1); MEAN CORPUSCULAR HEMOGLOBIN 29 pg (27-31); MEAN CORPUSCULAR HGB CONC 32 g/dL (33-37); MEAN CORPUSCULAR VOLUME 90.3 fL (80-94); MONOCYTES # (AUTO) 0.6 K/uL (0.8-1.0); MONOCYTES % (AUTO) 4.6 % (1.7-9.3); NEUTROPHILS # (AUTO) 11.9 K/uL (1.8-7.7); NEUTROPHILS % (AUTO) 84.8 % (42.2-75.2); PLATELET COUNT (AUTO) 464 K/uL (140-450); RED BLOOD CELL COUNT(AUTO) 3.73 MIL/uL (4.20-6.10); RED CELL DISTRIBUTION WIDTH 14.5 % (11.6-13.7)
[2020-12-18 06:35] LABS: ANION GAP 17.6 (8-16); CREATININE 1.4 mg/dL (0.6-1.3); POTASSIUM 3.6 mmol/L (3.5-5.1)
--- NOTE | 2020-12-18 07:28 | NUR ---
RECEIVED REPORT FROM MACHINIST NURSE FOR CONTINUITY OF CARE. PATIENT IS RESTING ON BED COMFORTABLY ON BED, FLACC 0, AROUSABLE TO VOICE, EYES OPEN, APHASIC, RESPIRATION EVEN AND UNLABORED ON TRACH TO VENT, SETTING: AC/VC FIO2 24%, TV 450, RATE 14, PEEP 5, SPO2 AT 99%. LUNG SOUNDS DIMINISHED ON AUSCULTATION. NO SIGNS OF ACUTE DISTRESS NOTED. PACEMAKER IN PLACE. PACED RHYTHM AT 60BPM. IV/CENTRAL LINE ON R FEMORAL TRIPLE LUMEN, CLEAN AND INTACT, RUNNING LEVOPHED 3 MCG/MIN, G-TUBE IN PLACE, VITAL AF AT 30ML/HR WITH FWF 140/6HR. ABDOMEN ROUND AND NON-DISTENDED. SKIN WARM TO TOUCH, SACRAL WOUND NOTED. HAMEED CATH IN PLACE DRAINING TO GRAVITY. CONTRACTURES TO UPPER AND LOWER EXTREMITIES BILATERALLY. FALL RISK PRECAUTION, ASPIRATION PRECAUTION, SEIZURE PRECAUTION AND PRESSURE ULCER PRECAUTION IN PLACE. POC REVIEWED, BED IN LOW POSITION, HOB SLIGHTLY ELEVATED, AND BED LOCKED.
--- NOTE | 2020-12-18 09:00 | NUR ---
DR MONGE AT BEDSIDE
[2020-12-18] MEDS: POLYETHYLENE GLYCOL 17 GM/PKT GT SCH ×2 (09:28→20:32)
[2020-12-18] MEDS: TAMSULOSIN 0.4 MG CAP PO SCH (09:28)
[2020-12-18] MEDS: carBAMazepine 200 MG TAB GT SCH ×2 (09:29→20:32)
[2020-12-18] MEDS: MEROPENEM 1,000 MG in NACL 0.9% 100 ML IV SCH ×2 (09:33→20:33)
[2020-12-18] MEDS: levETIRAcetam 500 MG in NACL 0.9% 100 ML IV SCH ×2 (09:33→20:35)
[2020-12-18] MEDS: PHENobarbital 130 MG/ML VIAL IV SCH (09:34)
[2020-12-18] MEDS: VANCOMYCIN 1,000 MG in DEXTROSE 5% 250 ML IV SCH (12:00)
[2020-12-18] MEDS: THERAHONEY WOUND DRESSING TP SCH (13:39)
--- NOTE | 2020-12-18 14:34 | NUR ---
12/18/20 RD FOLLOW UP COMPLETED PLEASE REFER TO NUTRITION ASSESSMENT UNDER CARE ACTIVITY FOR ESTIMATED NUTRITIONAL NEEDS. 1. CONTINUE VITAL AF 1.2 @ 60 ML/HR WITH FREE WATER FLUSH OF 140 ML Q6H -THIS WILL PROVIDE 1440 ML OF VOLUME, 1167 ML OF WATER, 1728 KCAL, 108 GM OF PROTEIN WHICH MEETS 100% OF KCAL AND PROTEIN NEEDS. 2. RECOMMEND TEQUILA BID VIA G-TUBE FOR WOUND HEALING 3. RD TO FOLLOW-UP 2-3 DAYS, HIGH RISK JUAN PABLO LU RD
[2020-12-18] MEDS: DEXTROSE 5% 1,000 ML IV SCH (16:05)
--- NOTE | 2020-12-18 17:02 | NUR ---
LARGE BM, PERICARE DONE, WOUND DRESSING CHANGED.
--- NOTE | 2020-12-18 19:30 | NUR ---
ASSUMED CARE OF PT.INITIAL ASSESSMENT COMPLETED.PT OPENS EYES SPONTANEOUSLY,DOES NOT FOLLOW COMMANDS, W/HX OF CEREBRAL PALSY AND SEIZURE.SEIZURE PRECAUTION IN PLACE.WITH TLC TO RT FEMORAL INTACT, W/LEVOPHED DRIP 16MG IN 250ML D5W AT 2MCG/MIN AND ORDERED IVF INFUSING.TRACH TO VENT VOL A/C FIO2 24% TV450 RATE14 PEEP 5.W/G TUBE.ON G TUBE FEEDING VITAL AF 1.2 AT 40ML/HR AND WATER FLUSH ORDERED.NO RESIDUALS NOTED.RATE INCREASED TO 50ML/HR.GOAL IS 60 ML/HR ORDERED.ALL EXTREMITIES CONTRACTED/STIFF.WITH PRESSURE ULCER TO SACROCOCCYGEAL.DRESSING IN PLACE.FLACC 0.
--- NOTE | 2020-12-18 20:00 | NUR ---
MODERATE LIQUID BROWNISH STOOL NOTED.PT CLEANED.ORAL CARE DONE.REPOSITIONED
--- NOTE | 2020-12-18 22:00 | NUR ---
BM NOTED.LARGE AMT OF LIQUID STOOL.BROWN IN COLOR.PT CLEANED.REPOSITIONED
[2020-12-19] VITALS (31 sets, daily range): BP systolic 91–134; BP diastolic 53–97
--- NOTE | 2020-12-19 | NUR ---
ORAL CARE USING VAP KIT RENDERED.PT ON DAILY PEPCID FOR GI PROPHYLAXIS.REPOSITIONED
[2020-12-19] MEDS: HYDRAGUARD CREAM TP SCH ×2 (00:54→13:00)
[2020-12-19] MEDS: FAMOTIDINE 20 MG/2 ML VIAL IV SCH (01:27)
--- NOTE | 2020-12-19 02:00 | NUR ---
BM NOTED.PT CLEANED.REPOSITIONED.FLACC 0
[2020-12-19] MEDS: MIDODRINE 5 MG TAB PO SCH ×3 (05:09→20:10)
[2020-12-19] MEDS: HYDROCORTISONE NA SUCC 100 MG/2 ML VIAL IV SCH ×3 (05:09→17:15)
--- NOTE | 2020-12-19 05:30 | NUR ---
MORNING CARE DONE.ORAL CARE RENDERED.DRESSING TO SACRUM SOAKED.CHANGED.FLACC 0
[2020-12-19] MEDS: DEXTROSE 5% 1,000 ML IV SCH ×2 (06:20→15:31)
[2020-12-19 06:48] LABS: EOSINOPHILS # (AUTO) 0.1 K/uL (0-0.4); EOSINOPHILS % (AUTO) 0.4 % (0.0-4.0); HEMATOCRIT 34.9 % (36-52); LYMPHOCYTES # (AUTO) 0.8 K/uL (2.0-11.5); LYMPHOCYTES % (AUTO) 4.8 % (20.5-51.1); MEAN CORPUSCULAR HEMOGLOBIN 29 pg (27-31); MEAN CORPUSCULAR HGB CONC 32 g/dL (33-37); MEAN CORPUSCULAR VOLUME 91.2 fL (80-94); MONOCYTES # (AUTO) 0.4 K/uL (0.8-1.0); NEUTROPHILS # (AUTO) 16.5 K/uL (1.8-7.7); NEUTROPHILS % (AUTO) 92.8 % (42.2-75.2); PLATELET COUNT (AUTO) 481 K/uL (140-450); RED BLOOD CELL COUNT(AUTO) 3.83 MIL/uL (4.20-6.10); RED CELL DISTRIBUTION WIDTH 14.7 % (11.6-13.7); WHITE BLOOD COUNT (AUTO) 17.8 K/uL (4.8-10.8)
--- NOTE | 2020-12-19 07:58 | NUR ---
RECEIVED ON A VIASYS BROWN VENTILATOR PLUGGED INTO RED OUTLET TOLERATING WELL WITHOUT ADVERSE REACTIONS NOTED TO A PORTEX DFEN #7 AIRWAY SECURED WITH A YOSELYN TRACH TIE CUFF PRESSURE CHECKED NOTED AMBU BAG AT BEDSIDE LOC AWAKE STABLE GOOD CHEST RISE DEEP TRAC HEAL SUCTION FOR SMALL THIN WHITE SECRETIONS AIRWAY PATENT
[2020-12-19] MEDS: TAMSULOSIN 0.4 MG CAP PO SCH (08:08)
[2020-12-19] MEDS: carBAMazepine 200 MG TAB GT SCH ×2 (08:08→20:07)
[2020-12-19] MEDS: PHENobarbital 130 MG/ML VIAL IV SCH (08:08)
[2020-12-19] MEDS: MEROPENEM 1,000 MG in NACL 0.9% 100 ML IV SCH ×2 (08:09→20:07)
[2020-12-19] MEDS: levETIRAcetam 500 MG in NACL 0.9% 100 ML IV SCH ×2 (08:09→20:08)
[2020-12-19] MEDS: POLYETHYLENE GLYCOL 17 GM/PKT GT SCH ×2 (08:09→20:08)
[2020-12-19 08:47] LABS: MAGNESIUM 1.9 mg/dL (1.8-2.4); PHOSPHORUS 3.3 mg/dL (2.5-4.9)
--- NOTE | 2020-12-19 09:16 | NUR ---
PHONE CALL TO MOTHER MADALYN REGARDING CONSENT FOR PICC LINE INSERTION, ;GRACE REQUESTS TO SPEAK WITH DOCTOR, SHE WANTS "DUNCAN SEDATED FOR PICC LINE BECAUSE HE HAS VERY SMALL FRAGILE VEINS", WILL NOTIFY .
[2020-12-19 09:47] LABS: ANION GAP 18.1 (8-16); CARBON DIOXIDE 17.7 mmol/L (21-32); CREATININE 1.2 mg/dL (0.6-1.3)
--- NOTE | 2020-12-19 11:29 | NUR ---
NO APPARENT DISTRESS NOTED GOOD CHEST RISE AIRWAY PATENT
[2020-12-19 11:57] LABS: POTASSIUM 2.8 mmol/L (3.5-5.1)
[2020-12-19] MEDS: POTASSIUM CHLORIDE 40 MEQ, LIDOCAINE MPF 1% 25 MG in NACL 0.9% 250 ML IV PRN (12:35)
[2020-12-19] MEDS: THERAHONEY WOUND DRESSING TP SCH (13:00)
[2020-12-19] MEDS: NOREPINEPHRINE 16 MG in DEXTROSE 5% 250 ML IV PRN (14:37)
[2020-12-19] MEDS: CITRIC ACID/SODIUM CITRATE 30 ML UDC PO SCH (15:21)
--- NOTE | 2020-12-19 16:27 | NUR ---
ASLEEP EASILY AWAKENS GOOD CHEST RISE DEEP TRACHEAL SUCTION FOR LARGE THIN YELLOW SECRETIONS AIRWAY PATENT
[2020-12-19] MEDS ORDERED: MIDAZOLAM 2 MG/2 ML VIAL IV PRN (18:00)
[2020-12-19] MEDS ORDERED: fentaNYL citrate 0.05 MG/ML VIAL IVP PRN (18:00)
--- NOTE | 2020-12-19 19:15 | NUR ---
ASSUMED CARE OF PT.INITIAL ASSESSMENT COMPLETED.PT OPENS EYES SPONTANEOUSLY, PT HAS HX OF CEREBRAL PALSY AND SEIZURE.SEIZURE PRECAUTION ALREADY IN PLACE.WITH TLC TO RT FEMORAL INTACT, W/LEVOPHED DRIP 16MG IN 250ML D5W AT 6 MCG/MIN AND ORDERED IVF INFUSING.TRACH TO VENT VOL A/C FIO2 24% TV450 RATE14 PEEP 5.W/G TUBE.ON G TUBE FEEDING VITAL AF 1.2 AT 60ML/HR AND WATER FLUSH ORDERED.NO RESIDUALS NOTED.ALL EXTREMITIES CONTRACTED/STIFF.WITH PRESSURE ULCER TO SACROCOCCYGEAL.DRESSING DRY AND INTACT.FLACC 0.
--- NOTE | 2020-12-19 19:41 | NUR ---
PHONE CALL TO DR MICHELLE, DIRECTOR BUSINESS INTELLIGENCE,SOLUTION MAKER IS DR DOSS, SPOKE WITH DR DOSS RE; IF OK TO INSERT PICC LINE, PER ALEXANDRAPICC LINE NURSE,TO INFORM DIRECTOR BUSINESS INTELLIGENCE, DR DOSS SAID OK TO INSERT PICC LINE
--- NOTE | 2020-12-19 20:46 | NUR ---
PICC LINE NURSE ALEXANDRA AT BEDSIDE TO INSERT NEW PICC LINE FOR PT.WITH SIGNED CONSENT FROM PTS MOTHER MADALYN PEHLAN. TIME OUT DONE WITH PICC NURSE ALEXANDRA AND TRANSPORTATION REFRIGERATION TECHNICIAN.
--- NOTE | 2020-12-19 21:20 | NUR ---
PICC LINE INSERTED AT [facility].CHEST X RAY DONE.PER ALEXANDRAPICC LINE NURSE, OK TO USE
[2020-12-20] VITALS (28 sets, daily range): BP systolic 85–136; BP diastolic 43–92
[2020-12-20] MEDS: HYDRAGUARD CREAM TP SCH ×2 (00:18→13:00)
[2020-12-20] MEDS: FAMOTIDINE 20 MG/2 ML VIAL IV SCH (00:26)
[2020-12-20] MEDS: HYDROCORTISONE NA SUCC 100 MG/2 ML VIAL IV SCH ×4 (00:27→17:53)
--- NOTE | 2020-12-20 02:30 | NUR ---
LEVOPHED HELD AT THIS TIME DUE TO ELEVATED BP
[2020-12-20] MEDS: CITRIC ACID/SODIUM CITRATE 30 ML UDC PO SCH ×3 (03:00→21:00)
[2020-12-20] MEDS: MIDODRINE 5 MG TAB PO SCH ×3 (05:00→21:00)
[2020-12-20 06:07] LABS: HEMATOCRIT 31.8 % (36-52); HEMOGLOBIN 10.3 g/dL (12.0-18.0); MEAN CORPUSCULAR HEMOGLOBIN 29 pg (27-31); MEAN CORPUSCULAR HGB CONC 32 g/dL (33-37); PLATELET COUNT (AUTO) 392 K/uL (140-450); WHITE BLOOD COUNT (AUTO) 16.3 K/uL (4.8-10.8)
[2020-12-20 06:29] LABS: MAGNESIUM 1.8 mg/dL (1.8-2.4); PHOSPHORUS 2.3 mg/dL (2.5-4.9)
[2020-12-20 06:45] LABS: ANION GAP 17.6 (8-16); CARBON DIOXIDE 19.6 mmol/L (21-32); CREATININE 1.1 mg/dL (0.6-1.3); POTASSIUM 3.2 mmol/L (3.5-5.1)
[2020-12-20 07:13] LABS: LYMPHOCYTES % (MANUAL) 7 % (20-46); MONOCYTES % (MANUAL) 2 % (5-12)
[2020-12-20] MEDS: TAMSULOSIN 0.4 MG CAP PO SCH (08:03)
[2020-12-20] MEDS: PHENobarbital 130 MG/ML VIAL IV SCH (08:03)
[2020-12-20] MEDS: carBAMazepine 200 MG TAB GT SCH ×2 (08:03→21:00)
[2020-12-20] MEDS: COLISTIMETHATE SODIUM 150 MG in NACL 0.9% 100 ML IV SCH ×2 (08:04→21:48)
[2020-12-20] MEDS: DEXTROSE 5% 1,000 ML IV SCH (08:07)
[2020-12-20] MEDS: POLYETHYLENE GLYCOL 17 GM/PKT GT SCH ×2 (08:10→21:00)
--- NOTE | 2020-12-20 08:50 | NUR ---
RECEIVED ON A VIASYS BROWN VENTILATOR PLUGGED INTO RED OUTLET TOLERATING WELL WITHOUT ADVERSE REACTIONS NOTED TO A PORTEX DFEN #7 AIRWAY SECURED WITH A YOSELYN TRACH TIE CUFF PRESSURE CHECKED A NOTED AMBU BAG AT BEDSIDE LOC ASLEEP EASILY AWAKENS GOOD EYE TRACKING GOOD CHEST RISE DEEP TRACHEAL SUCTION FOR LARGE THIN TO FROTHY PALE YELLOW SECRETIONS AIRWAY PATENT
[2020-12-20] MEDS: levETIRAcetam 500 MG in NACL 0.9% 100 ML IV SCH ×2 (09:24→21:48)
[2020-12-20] MEDS: MEROPENEM 1,000 MG in NACL 0.9% 100 ML IV SCH ×2 (09:28→21:00)
[2020-12-20] MEDS: THERAHONEY WOUND DRESSING TP SCH (13:00)
--- NOTE | 2020-12-20 13:49 | NUR ---
RESTING WELL WITH NO APPARENT DISTRESS NOTED EQUAL CHEST RISE
--- NOTE | 2020-12-20 14:51 | NUR ---
PROCEDURES ANALYST BRANDI NOTIFIED THAT PATIENT WILL BE DOWNGRADE TO TELE.
--- NOTE | 2020-12-20 15:03 | NUR ---
TELE SALES AND MARKETING MANAGER NHUNG NOTIFIED FOR DOWNGRADE. PER NHUNG, PATIENT IS GOING TO ROOM 108B ASSIGNED TO DUNCAN LI. PRIMARY RN JEREMÍAS MADE AWARE TO CALL TO GIVE REPORT.
[2020-12-20] MEDS: POTASSIUM CHLORIDE 40 MEQ, LIDOCAINE MPF 1% 25 MG in NACL 0.9% 250 ML IV PRN (15:15)
--- NOTE | 2020-12-20 16:35 | NUR ---
STABLE GOOD CHEST RISE DEEP TRACHEAL SUCTION FOR COPIOUS THIN YELLOW SECRETIONS AIRWAY PATENT
--- NOTE | 2020-12-20 16:45 | NUR ---
TRANSFERRED PATIENT TO [place] [id number]-B PATIENT REMAINED ON VENTILATOR INTERNAL BATTERY ON AND FUNCTIONING WELL SUPPLEMENTAL OXYGEN VIA E-TANK AT 1400 PSI TOLERATED TRANSFER WELL WITHOUT COMPLICATIONS SATURATION 97% HR 80"S
--- NOTE | 2020-12-20 17:00 | NUR ---
RECEIVED PATIENT FROM ICU NURSE. PATIENT IS NONVERBAL AND REACTS TO LIGHT TOUCH. RESPIRATIONS EVEN AND LABORED. TRACH TO VENT. FIO2 IS 24% AND OXYGEN SATURATION SATING 99%. HAS STAGE 4 SACRAL WOUND. SKIN IS WARM AND DRY. LINDA PICC LINE. PATENT AND INTACT. BOWEL SOUNDS ACTIVE IN ALL FOUR QUADRANTS. G-TUBE IN PLACE RUNNING VITAL @60 CC/HR WITH WATER FLUSH @ 300 CC/Q6H. CURRENTLY RUNNING K-RIDER @ 68/HR. PLAN OF CARE DISCUSSED. SAFETY PRECAUTIONS IN PLACED. WILL CONTINUE TO MONITOR.
--- NOTE | 2020-12-20 17:05 | NUR ---
PATIENT TRANSFERRED TO TELE ROOM 108 B, APPLIED COMMUNITY LIVING COACH.
--- NOTE | 2020-12-20 18:00 | NUR ---
ALL SCHEDULED MEDS GIVEN. PT IS STABLE. NO DISTRESS NOTED. WILL CONTINUE TO MONITOR.
--- NOTE | 2020-12-20 19:46 | NUR ---
ENDORSED TO LINING BASTER NURSE FOR CONTINUITY OF CARE
--- NOTE | 2020-12-20 20:10 | NUR ---
RECEIVED REPORT FROM DUNCAN/RN, PT FLAT AFFECT, NON-VERBAL, NEEDS TOATAL CARE, ON TRACH - VENT, NO SOB/ DISTRESS, CARE ASSUMED.
[2020-12-21] VITALS: BP 108/79
[2020-12-21] MEDS: FAMOTIDINE 20 MG/2 ML VIAL IV SCH (00:12)
[2020-12-21] MEDS: HYDRAGUARD CREAM TP SCH ×2 (00:12→12:30)
[2020-12-21] MEDS: HYDROCORTISONE NA SUCC 100 MG/2 ML VIAL IV SCH ×3 (00:22→12:00)
[2020-12-21 04:00] VITALS: BP 111/78
[2020-12-21] MEDS: MIDODRINE 5 MG TAB PO SCH ×2 (05:22→12:00)
--- NOTE | 2020-12-21 07:24 | NUR ---
GAVE REPORT TO DARRELL/GUILLERMO
--- NOTE | 2020-12-21 07:30 | NUR ---
RECEIVED REPORT FROM NIGHTSHIFT NURSE. PT RESTING IN BED. FLACC 0. RESPIRATIONS EVEN AND UNLABORED WITH NO SOB OR RESPIRATORY DISTRESS. SKIN WARM AND DRY TO TOUCH. R UPPER PICC LINE IS CLEAN, DRY, AND INTACT. SAFETY MEASURES IN PLACE. WILL CONTINUE TO MONITOR
[2020-12-21 08:00] VITALS: BP 99/62
--- NOTE | 2020-12-21 08:25 | NUR ---
RECEIVED ON A VIASYQuadriserv BROWN VENTILATOR PLUGGED INTO RED OUTLET TOLERATING WELL WITHOUT INCIDENT TO A PORTEX DFEN #7 AIRWAY SECURED WITH A YOSELYN TRACH TIE CUFF PRESSURE CHECKED NOTED LOC AWAKE STABLE GOOD CHEST RISE DEEP TRACHEAL SUCTION FOR LARGE THIN YELLOW TO HAZY SECRETIONS AIRWAY PATENT MARIOLA STOMA SUCTION FOR LARGE THIN YELLOW TO HAZY SECRETIONS CLEANED MARIOLA STOMA CHANGED GAUZE AT THIS TIME
[2020-12-21] MEDS: PHENobarbital 130 MG/ML VIAL IV SCH ×2 (09:00→09:57)
[2020-12-21] MEDS: levETIRAcetam 500 MG in NACL 0.9% 100 ML IV SCH (09:04)
[2020-12-21 09:10] LABS: BASOPHILS % (AUTO) 0.1 % (0.0-2.0); EOSINOPHILS # (AUTO) 0.1 K/uL (0-0.4); EOSINOPHILS % (AUTO) 0.7 % (0.0-4.0); HEMATOCRIT 25.7 % (36-52); HEMOGLOBIN 8.2 g/dL (12.0-18.0); LYMPHOCYTES % (AUTO) 6.1 % (20.5-51.1); MEAN CORPUSCULAR HEMOGLOBIN 29 pg (27-31); MEAN CORPUSCULAR HGB CONC 32 g/dL (33-37); MONOCYTES # (AUTO) 0.6 K/uL (0.8-1.0); MONOCYTES % (AUTO) 3.7 % (1.7-9.3); NEUTROPHILS # (AUTO) 15.2 K/uL (1.8-7.7); NEUTROPHILS % (AUTO) 89.4 % (42.2-75.2); PLATELET COUNT (AUTO) 382 K/uL (140-450); RED BLOOD CELL COUNT(AUTO) 2.83 MIL/uL (4.20-6.10)
--- NOTE | 2020-12-21 09:15 | NUR ---
ADMINISTERED SCHED MED PRESCRIBED PER MD ORDER. PT TOLERATED WELL. MEDICATION EDUCATION PERFORMED. PT APHASIC AND UNABLE TO VERBALIZE UNDERSTANDING. SAFETY MEASURES IN PLACE. WILL CONTINUE TO MONITOR
[2020-12-21] MEDS: CITRIC ACID/SODIUM CITRATE 30 ML UDC PO SCH (09:55)
[2020-12-21] MEDS: POLYETHYLENE GLYCOL 17 GM/PKT GT SCH (09:57)
[2020-12-21] MEDS: COLISTIMETHATE SODIUM 150 MG in NACL 0.9% 100 ML IV SCH (09:57)
[2020-12-21] MEDS: TAMSULOSIN 0.4 MG CAP PO SCH (09:57)
[2020-12-21] MEDS: carBAMazepine 200 MG TAB GT SCH (09:57)
[2020-12-21 10:08] LABS: ALBUMIN 1.7 g/dL (3.4-5.0); CARBON DIOXIDE 23.2 mmol/L (21-32); CREATININE 1.1 mg/dL (0.6-1.3); MAGNESIUM 1.8 mg/dL (1.8-2.4); PHOSPHORUS 1.7 mg/dL (2.5-4.9); POTASSIUM 3.2 mmol/L (3.5-5.1); TOTAL BILIRUBIN 0.2 mg/dL (0.0-1.0)
[2020-12-21] MEDS ORDERED: VANCO (11:46)
[2020-12-21] MEDS ORDERED: COLISTIMETHATE IV (11:46)
[2020-12-21] MEDS ORDERED: MINO100T2 PO (11:46)
[2020-12-21 12:00] VITALS: BP 115/76
[2020-12-21] MEDS: POTASSIUM CHLORIDE 40 MEQ, LIDOCAINE MPF 1% 25 MG in NACL 0.9% 250 ML IV PRN (12:00)
[2020-12-21] MEDS: THERAHONEY WOUND DRESSING TP SCH (12:30)
--- NOTE | 2020-12-21 13:41 | NUR ---
PT FINISHED ECHO AND TOLERATED WELL. AWAITING PT TO GET TRANSFERRED TO [facility] AT 3PM. SAFETY MEASURES IN PLACE. WILL CONTINUE TO MONITOR
--- NOTE | 2020-12-21 14:30 | NUR ---
GAVE REPORT TO OBI JAMES RN AT [facility]. OBI JAMES VERBALIZED UNDERSTANDING. SAFETY MEASURES IN PLACE. WILL CONTINUE TO MONITOR
--- NOTE | 2020-12-21 14:31 | NUR ---
ASLEEP RESTING COMFORTABLY WITHOUT EVIDENCE OF PULMONARY DISTRESS NOTE GOOD CHEST RISE DEEP TRACHEAL SUCTION FOR LARGE THIN PALE YELLOW SECRETIONS AIRWAY PATENT
[2020-12-21 14:39] VITALS: BP 115/76
--- NOTE | 2020-12-21 15:12 | NUR ---
[facility] HERE TO VOCATIONAL ED INSTRUCTOR PATIENT. REPORT ALREADY GIVEN TO OBI JAMES AT [facility]. REPORT GIVEN TO [facility] WELL. PT GOING WITH INTACT R UPPER ARM PICC LINE DOUBLE LUMEN THAT IS CLEAN, DRY, AND INTACT WELL HAMEED CATHETER THAT IS DRAINING CLEAR YELLOW URINE AND EMPTIED PRIOR TO LEAVING. WOUND PICTURES TAKEN AND PLACED IN CHART. GATHERED ALL OF PT BELONGINGS. REMOVED TELE BOX AND RETURNED TO BOARD OF EDUCATION SECRETARY. VACCINES ARE UP TO DATE. PT STABLE TO GO TO [facility] IN ROOM 5A.
== END 2020-12-21 15:10 | DRG 870 ==
LOC: MED 11:43 → MTU 17:56 → MIC 12-10 23:35 → MTU 12-20 17:05
PROVIDERS: ADMIT Hospitalist; ATTEND Hospitalist
PROC: 5A1955Z Respiratory Ventilation, Greater than 96 Consecutive Hours (ICD-10-PCS; principal; 2020-12-09)
PROC: 02HV33Z Insertion of Infusion Device into Superior Vena Cava, Percutaneous Approach (ICD-10-PCS; 2020-12-19)
PROC: B548ZZA Ultrasonography of Superior Vena Cava, Guidance (ICD-10-PCS; 2020-12-19)
DX: A41.9 Sepsis, unspecified organism (principal); J18.9 Pneumonia, unspecified organism; R65.21 Severe sepsis with septic shock; N17.0 Acute kidney failure with tubular necrosis; E43 Unspecified severe protein-calorie malnutrition; I21.A1 Myocardial infarction type 2; J96.21 Acute and chronic respiratory failure with hypoxia; J90 Pleural effusion, not elsewhere classified; N39.0 Urinary tract infection, site not specified; K56.609 Unspecified intestinal obstruction, unspecified as to partial versus complete obstruction; J96.10 Chronic respiratory failure, unspecified whether with hypoxia or hypercapnia; J44.0 Chronic obstructive pulmonary disease with (acute) lower respiratory infection; K56.7 Ileus, unspecified; E87.0 Hyperosmolality and hypernatremia; G40.909 Epilepsy, unspecified, not intractable, without status epilepticus; K21.9 Gastro-esophageal reflux disease without esophagitis; R13.10 Dysphagia, unspecified; T38.0X5A Adverse effect of glucocorticoids and synthetic analogues, initial encounter; Z20.822 Contact with and (suspected) exposure to COVID-19; Y95 Nosocomial condition; L89.90 Pressure ulcer of unspecified site, unspecified stage; L08.9 Local infection of the skin and subcutaneous tissue, unspecified; G80.9 Cerebral palsy, unspecified; D63.8 Anemia in other chronic diseases classified elsewhere; F79 Unspecified intellectual disabilities; Z98.2 Presence of cerebrospinal fluid drainage device; Z95.0 Presence of cardiac pacemaker; Z93.1 Gastrostomy status; Z93.0 Tracheostomy status; Z88.7 Allergy status to serum and vaccine; Z88.8 Allergy status to other drugs, medicaments and biological substances; Y92.89 Other specified places as the place of occurrence of the external cause; Z79.899 Other long term (current) drug therapy
CPT/HCPCS: 36415; 71045; 74018; 76604; 76770; 80048; 80053; 80202; 81001; 82009; 82550; 82570; 82728; 83605; 83615; 83735; 83880; 84100; 84300; 84484; 85025; 85379; 85384; 85610; 85651; 85730; 86140; 87040; 87070; 87081; 87086; 87186; 87205; 87420; 87804; 93005; 94003; 99291; J0456; J0696; J0770; J1650; J1720; J1953; J2001; J2185; J2250; J2370; J2405; J2543; J2560; J3010; J3370; J3480; J3490; J7030; J7060; U0003

== ENCOUNTER 2020-12-31 03:33 | Inpatient (IN) | payer OTHER, SELFPAY ==
[~2020-12-31] VITALS: Ht 182.9 cm; Wt 93.4 kg
[2020-12-31] VITALS (11 sets, daily range): BP systolic 92–123; BP diastolic 54–74
[~2020-12-31 03:33] MED LIST changes: +COLISTIMETHATE IV; +MINO100T2 PO; +VANCO
[2020-12-31 05:02] LABS: BASOPHILS % (AUTO) 0.3 % (0.0-2.0); LYMPHOCYTES # (AUTO) 1.3 K/uL (2.0-11.5); NEUTROPHILS % (AUTO) 75.1 % (42.2-75.2)
[2020-12-31 05:08] LABS: HEMATOCRIT 20.8 % (36-52); LYMPHOCYTES % (AUTO) 20.6 % (20.5-51.1); MEAN CORPUSCULAR HEMOGLOBIN 30 pg (27-31); MEAN CORPUSCULAR HGB CONC 33 g/dL (33-37); MEAN CORPUSCULAR VOLUME 90.8 fL (80-94); MONOCYTES # (AUTO) 0.3 K/uL (0.8-1.0); NEUTROPHILS # (AUTO) 4.7 K/uL (1.8-7.7); PLATELET COUNT (AUTO) 160 K/uL (140-450); RED BLOOD CELL COUNT(AUTO) 2.29 MIL/uL (4.20-6.10); RED CELL DISTRIBUTION WIDTH 15.7 % (11.6-13.7); WHITE BLOOD COUNT (AUTO) 6.3 K/uL (4.8-10.8)
[2020-12-31 05:09] LABS: APPEARANCE,URINE HAZY (CLEAR); BILIRUBIN,URINE NEGATIVE (NEGATIVE); BLOOD, URINE 1+ (NEGATIVE); COLOR,URINE YELLOW (YELLOW); LEUKOCYTE ESTERASE ,URINE 3+ (NEGATIVE); NITRITE, URINE NEGATIVE (NEGATIVE); PH,URINE 6.5 (5.0-9.0); UGLUCOSE NEGATIVE (NEGATIVE)
[2020-12-31 05:11] LABS: HEMOGLOBIN 6.8 g/dL (12.0-18.0)
[2020-12-31 05:16] LABS: ALBUMIN 1.4 g/dL (3.4-5.0); ANION GAP 12.3 (8-16); CARBON DIOXIDE 30.8 mmol/L (21-32); CREATININE 1.7 mg/dL (0.6-1.3); POTASSIUM 4.1 mmol/L (3.5-5.1); TOTAL BILIRUBIN 0.2 mg/dL (0.0-1.0)
[2020-12-31 05:25] LABS: RBC,URINE 0-5 /HPF (0-5); WBC,URINE TOO MANY TO COUNT /HPF (0-5); YEAST,URINE Many /HPF (None Seen)
[2020-12-31] MEDS ORDERED: ASCO500T95 PO (07:05)
[2020-12-31] MEDS ORDERED: DOCU-299 GT (07:05)
[2020-12-31] MEDS ORDERED: ZINC220C28 PO (07:05)
[2020-12-31] MEDS ORDERED: DOCUSATE SODIUM 100 MG GELCAP PO PRN (09:45)
[2020-12-31] MEDS ORDERED: ACETAMINOPHEN 325 MG TAB PO PRN (09:45)
[2020-12-31] MEDS ORDERED: ZOLPIDEM 5 MG TAB PO PRN (09:45)
[2020-12-31] MEDS ORDERED: ONDANSETRON 4 MG/2 ML VIAL IM/IVP PRN (09:45)
[2020-12-31] MEDS ORDERED: MAGNESIUM HYDROXIDE 2400 MG/30 ML UDC PO PRN (09:45)
[2020-12-31] MEDS: NACL 0.9% 1,000 ML IV SCH ×2 (09:45→15:45)
[2020-12-31] MEDS ORDERED: MORPHINE SULFATE 2 MG/ML SYR IVP PRN (09:45)
[2020-12-31] MEDS ORDERED: HYDROcodone/APAP 5/325 MG 1 TAB TAB PO PRN ×2 (09:45)
[2020-12-31] MEDS ORDERED: AZITHROMYCIN 250 MG TAB PO SCH (10:00)
[2020-12-31] MEDS ORDERED: FLUCONAZOLE 100 MG TAB PO SCH (10:30)
[2020-12-31 11:06] LABS: BASOPHILS % (AUTO) 0.1 % (0.0-2.0); HEMATOCRIT 23.3 % (36-52); HEMOGLOBIN 7.6 g/dL (12.0-18.0); LYMPHOCYTES # (AUTO) 1.4 K/uL (2.0-11.5); MEAN CORPUSCULAR HEMOGLOBIN 30 pg (27-31); MEAN CORPUSCULAR HGB CONC 32 g/dL (33-37); MONOCYTES # (AUTO) 0.4 K/uL (0.8-1.0); MONOCYTES % (AUTO) 5.4 % (1.7-9.3); NEUTROPHILS # (AUTO) 5.3 K/uL (1.8-7.7); NEUTROPHILS % (AUTO) 74.6 % (42.2-75.2); PLATELET COUNT (AUTO) 165 K/uL (140-450); RED BLOOD CELL COUNT(AUTO) 2.54 MIL/uL (4.20-6.10); RED CELL DISTRIBUTION WIDTH 15.8 % (11.6-13.7)
[2020-12-31] MEDS ORDERED: HYDROcodone/APAP 5/325 MG 1 TAB TAB GT PRN (11:10)
[2020-12-31] MEDS ORDERED: ZOLPIDEM 5 MG TAB GT PRN (11:10)
[2020-12-31] MEDS ORDERED: ACETAMINOPHEN 325 MG TAB GT PRN (11:10)
[2020-12-31] MEDS ORDERED: DOCUSATE 100 MG/10 ML UDC GT PRN (11:10)
[2020-12-31 11:21] LABS: ANION GAP 14.2 (8-16); CARBON DIOXIDE 23.9 mmol/L (21-32); CREATININE 1.8 mg/dL (0.6-1.3); POTASSIUM 4.1 mmol/L (3.5-5.1)
[2020-12-31 11:35] LABS: LYMPHOCYTES % (AUTO) 19.9 % (20.5-51.1)
[2020-12-31 11:36] LABS: PROTHROMBIN TIME 10.1 secs (10.8-13.4)
[2020-12-31 11:37] LABS: CHOL/HDL RATIO 3.7 (1-4.5); MAGNESIUM 1.3 mg/dL (1.8-2.4); PHOSPHORUS 6.9 mg/dL (2.5-4.9); THYROID STIMULATING HORMONE 4.35 uIU/mL (0.34-3.74)
[2020-12-31] MEDS ORDERED: ALTEPLASE 100 MG VIAL IV ONE (12:00)
[2020-12-31] MEDS ORDERED: NACL 0.9% 1,000 ML IV ONE (12:00)
[2020-12-31] MEDS ORDERED: AZITHROMYCIN 250 MG TAB GT SCH (12:00)
[2020-12-31] MEDS ORDERED: FLUCONAZOLE 100 MG TAB GT SCH (12:30)
[2020-12-31] MEDS ORDERED: CRUSHER, PILL MC ONE (13:14)
[2020-12-31] MEDS: LACTOBACILLUS RHAMNOSUS GG 1 EACH CAP GT SCH (13:16)
[2020-12-31] MEDS ORDERED: ZINC SULF 220 MG CAP PO SCH (21:00)
[2020-12-31] MEDS ORDERED: LACTOBACILLUS RHAMNOSUS GG 1 EACH CAP PO SCH (21:00)
[2020-12-31] MEDS ORDERED: DOCUSATE SODIUM 100 MG GELCAP PO SCH (21:00)
[2020-12-31] MEDS ORDERED: levETIRAcetam 500 MG TAB PO SCH (21:00)
[2020-12-31] MEDS ORDERED: ASCORBIC ACID 500 MG TAB PO SCH (21:00)
[2020-12-31] MEDS: levETIRAcetam 500 MG TAB GT SCH (21:36)
[2020-12-31] MEDS: carBAMazepine 200 MG TAB GT SCH (21:36)
[2020-12-31] MEDS: ZINC SULF 220 MG CAP GT SCH (21:37)
[2020-12-31] MEDS: ASCORBIC ACID 500 MG TAB GT SCH (21:37)
[2020-12-31] MEDS: DOCUSATE 100 MG/10 ML UDC GT SCH (21:37)
[2020-12-31] MEDS: MIDAZOLAM 2 MG/2 ML VIAL IV PRN (22:36)
[2021-01-01] VITALS (7 sets, daily range): BP systolic 95–123; BP diastolic 45–73
[2021-01-01 00:30] LABS: BASOPHILS % (AUTO) 0.2 % (0.0-2.0); LYMPHOCYTES # (AUTO) 1.2 K/uL (2.0-11.5); MEAN CORPUSCULAR HEMOGLOBIN 29 pg (27-31); MEAN CORPUSCULAR HGB CONC 33 g/dL (33-37); MEAN CORPUSCULAR VOLUME 88.1 fL (80-94); MONOCYTES # (AUTO) 0.3 K/uL (0.8-1.0); MONOCYTES % (AUTO) 3.3 % (1.7-9.3); NEUTROPHILS # (AUTO) 6.6 K/uL (1.8-7.7); NEUTROPHILS % (AUTO) 81.5 % (42.2-75.2); PLATELET COUNT (AUTO) 184 K/uL (140-450); RED BLOOD CELL COUNT(AUTO) 2.72 MIL/uL (4.20-6.10); RED CELL DISTRIBUTION WIDTH 15.6 % (11.6-13.7); WHITE BLOOD COUNT (AUTO) 8.2 K/uL (4.8-10.8)
[2021-01-01] MEDS: NACL 0.9% 1,000 ML IV SCH (05:41)
[2021-01-01 06:44] LABS: BASOPHILS % (AUTO) 0.3 % (0.0-2.0); HEMATOCRIT 22.9 % (36-52); HEMOGLOBIN 7.7 g/dL (12.0-18.0); LYMPHOCYTES # (AUTO) 1.2 K/uL (2.0-11.5); LYMPHOCYTES % (AUTO) 14.8 % (20.5-51.1); MEAN CORPUSCULAR HEMOGLOBIN 30 pg (27-31); MEAN CORPUSCULAR HGB CONC 34 g/dL (33-37); MEAN CORPUSCULAR VOLUME 88.7 fL (80-94); MONOCYTES # (AUTO) 0.3 K/uL (0.8-1.0); MONOCYTES % (AUTO) 3.9 % (1.7-9.3); NEUTROPHILS # (AUTO) 6.6 K/uL (1.8-7.7); PLATELET COUNT (AUTO) 178 K/uL (140-450); RED BLOOD CELL COUNT(AUTO) 2.58 MIL/uL (4.20-6.10); RED CELL DISTRIBUTION WIDTH 15.8 % (11.6-13.7); WHITE BLOOD COUNT (AUTO) 8.1 K/uL (4.8-10.8)
[2021-01-01 07:21] LABS: MAGNESIUM 1.2 mg/dL (1.8-2.4); PHOSPHORUS 6.9 mg/dL (2.5-4.9)
[2021-01-01 07:39] LABS: ANION GAP 17.2 (8-16); CARBON DIOXIDE 25.6 mmol/L (21-32); CREATININE 1.9 mg/dL (0.6-1.3); POTASSIUM 3.8 mmol/L (3.5-5.1)
[2021-01-01 08:06] LABS: T4 (THYROXINE) 5.8 ug/dL (4.5-12.0)
[2021-01-01] MEDS ORDERED: TAMSULOSIN 0.4 MG CAP PO SCH (09:00)
[2021-01-01] MEDS ORDERED: AZITHROMYCIN 250 MG TAB PO SCH (09:00)
[2021-01-01] MEDS ORDERED: MULTIVITAMIN/MINERALS 1 TAB PO SCH (09:00)
[2021-01-01] MEDS: DOCUSATE 100 MG/10 ML UDC GT SCH ×2 (10:24→20:38)
[2021-01-01] MEDS: levETIRAcetam 500 MG TAB GT SCH (10:24)
[2021-01-01] MEDS: LACTOBACILLUS RHAMNOSUS GG 1 EACH CAP GT SCH (10:25)
[2021-01-01] MEDS: carBAMazepine 200 MG TAB GT SCH (10:25)
[2021-01-01] MEDS: MULTIVITAMIN/MINERALS 1 TAB GT SCH (10:26)
[2021-01-01] MEDS: TAMSULOSIN 0.4 MG CAP GT SCH (10:27)
[2021-01-01] MEDS: AZITHROMYCIN 250 MG TAB GT SCH (10:27)
[2021-01-01] MEDS: ZINC SULF 220 MG CAP GT SCH ×2 (10:27→20:40)
[2021-01-01] MEDS: ASCORBIC ACID 500 MG TAB GT SCH ×2 (10:27→20:41)
[2021-01-01] MEDS ORDERED: MAG SULF 2000 MG/WATER PREMIX 50 ML IV SCH (11:15)
[2021-01-01] MEDS ORDERED: POTASSIUM CHLORIDE 10 MEQ TABER PO PRN (12:20)
[2021-01-01] MEDS ORDERED: levETIRAcetam 1,000 MG in NACL 0.9% 100 ML IV SCH (14:00)
[2021-01-01] MEDS: THERAHONEY GEL 42.5 GM TP SCH (15:00)
[2021-01-01] MEDS: MIDAZOLAM 2 MG/2 ML VIAL IV PRN (16:30)
[2021-01-01] MEDS: levETIRAcetam 1,000 MG in NACL 0.9% 100 ML IV SCH (20:38)
[2021-01-02] VITALS (9 sets, daily range): BP systolic 96–141; BP diastolic 50–71
[2021-01-02] MEDS: NACL 0.9% 1,000 ML IV SCH (01:35)
[2021-01-02] MEDS: HYDRAGUARD CREAM TP SCH ×2 (01:42→13:00)
[2021-01-02 06:17] LABS: BASOPHILS % (AUTO) 0.1 % (0.0-2.0); HEMOGLOBIN 7.3 g/dL (12.0-18.0); LYMPHOCYTES # (AUTO) 1.7 K/uL (2.0-11.5); LYMPHOCYTES % (AUTO) 17.3 % (20.5-51.1); MEAN CORPUSCULAR HEMOGLOBIN 29 pg (27-31); MEAN CORPUSCULAR HGB CONC 33 g/dL (33-37); MEAN CORPUSCULAR VOLUME 88.2 fL (80-94); MONOCYTES # (AUTO) 0.4 K/uL (0.8-1.0); NEUTROPHILS # (AUTO) 7.6 K/uL (1.8-7.7); NEUTROPHILS % (AUTO) 78.6 % (42.2-75.2); PLATELET COUNT (AUTO) 186 K/uL (140-450); RED CELL DISTRIBUTION WIDTH 15.6 % (11.6-13.7); WHITE BLOOD COUNT (AUTO) 9.6 K/uL (4.8-10.8)
[2021-01-02 06:22] LABS: ANION GAP 15.1 (8-16); CARBON DIOXIDE 25.5 mmol/L (21-32); POTASSIUM 3.6 mmol/L (3.5-5.1)
[2021-01-02 06:28] LABS: MAGNESIUM 1.7 mg/dL (1.8-2.4); PHOSPHORUS 6.7 mg/dL (2.5-4.9)
[2021-01-02] MEDS: ZINC SULF 220 MG CAP GT SCH ×2 (08:50→21:39)
[2021-01-02] MEDS: ASCORBIC ACID 500 MG TAB GT SCH ×2 (08:51→21:36)
[2021-01-02] MEDS: LACTOBACILLUS RHAMNOSUS GG 1 EACH CAP GT SCH (08:51)
[2021-01-02] MEDS: AZITHROMYCIN 250 MG TAB GT SCH (08:52)
[2021-01-02] MEDS: DOCUSATE 100 MG/10 ML UDC GT SCH ×2 (08:52→21:37)
[2021-01-02] MEDS: MULTIVITAMIN/MINERALS 1 TAB GT SCH (08:52)
[2021-01-02] MEDS: TAMSULOSIN 0.4 MG CAP GT SCH (08:52)
[2021-01-02] MEDS: levETIRAcetam 1,000 MG in NACL 0.9% 100 ML IV SCH ×2 (09:00→17:33)
[2021-01-02] MEDS ORDERED: MAGNESIUM HYDROXIDE 2400 MG/30 ML UDC GT PRN (09:45)
[2021-01-02] MEDS: THERAHONEY GEL 42.5 GM TP SCH (13:00)
[2021-01-03] VITALS: BP 107/60
[2021-01-03] MEDS: HYDRAGUARD CREAM TP SCH ×2 (01:00→13:32)
[2021-01-03] MEDS: levETIRAcetam 1,000 MG in NACL 0.9% 100 ML IV SCH ×4 (02:02→21:00)
[2021-01-03] MEDS: NACL 0.9% 1,000 ML IV SCH ×3 (02:02→23:02)
[2021-01-03 04:00] VITALS: BP 107/60
[2021-01-03 06:19] LABS: BASOPHILS % (AUTO) 0.4 % (0.0-2.0); LYMPHOCYTES # (AUTO) 1.7 K/uL (2.0-11.5); LYMPHOCYTES % (AUTO) 22.7 % (20.5-51.1); MEAN CORPUSCULAR HEMOGLOBIN 30 pg (27-31); MEAN CORPUSCULAR HGB CONC 33 g/dL (33-37); MONOCYTES # (AUTO) 0.4 K/uL (0.8-1.0); MONOCYTES % (AUTO) 5.7 % (1.7-9.3); NEUTROPHILS # (AUTO) 5.4 K/uL (1.8-7.7); NEUTROPHILS % (AUTO) 71.2 % (42.2-75.2); PLATELET COUNT (AUTO) 147 K/uL (140-450); RED CELL DISTRIBUTION WIDTH 15.4 % (11.6-13.7); WHITE BLOOD COUNT (AUTO) 7.6 K/uL (4.8-10.8)
[2021-01-03 06:23] LABS: ANION GAP 14.4 (8-16); CARBON DIOXIDE 25.1 mmol/L (21-32); POTASSIUM 3.5 mmol/L (3.5-5.1)
[2021-01-03 06:45] LABS: HEMATOCRIT 19.6 % (36-52); HEMOGLOBIN 6.5 g/dL (12.0-18.0); MAGNESIUM 1.6 mg/dL (1.8-2.4); PHOSPHORUS 6.1 mg/dL (2.5-4.9)
[2021-01-03 08:00] VITALS: BP 138/92
[2021-01-03] MEDS: ZINC SULF 220 MG CAP GT SCH ×2 (08:33→21:00)
[2021-01-03] MEDS: LACTOBACILLUS RHAMNOSUS GG 1 EACH CAP GT SCH (08:34)
[2021-01-03] MEDS: AZITHROMYCIN 250 MG TAB GT SCH (08:34)
[2021-01-03] MEDS: TAMSULOSIN 0.4 MG CAP GT SCH (08:34)
[2021-01-03] MEDS: ASCORBIC ACID 500 MG TAB GT SCH ×2 (08:34→21:00)
[2021-01-03] MEDS: MULTIVITAMIN/MINERALS 1 TAB GT SCH (08:35)
[2021-01-03] MEDS: DOCUSATE 100 MG/10 ML UDC GT SCH ×2 (09:00→21:00)
[2021-01-03 12:00] VITALS: BP 133/79
[2021-01-03] MEDS: THERAHONEY GEL 42.5 GM TP SCH (13:32)
[2021-01-03 16:00] VITALS: BP 125/63
[2021-01-03] MEDS: MAG SULF 2000 MG/WATER PREMIX 50 ML IV PRN (16:16)
[2021-01-03 20:00] VITALS: BP 127/67
[2021-01-04] VITALS (7 sets, daily range): BP systolic 117–137; BP diastolic 69–86
[2021-01-04] MEDS: HYDRAGUARD CREAM TP SCH ×2 (01:00→13:36)
[2021-01-04] MEDS: NACL 0.9% 1,000 ML IV SCH ×2 (05:06→15:06)
[2021-01-04] MEDS: levETIRAcetam 1,000 MG in NACL 0.9% 100 ML IV SCH ×3 (06:46→20:37)
[2021-01-04] MEDS: TAMSULOSIN 0.4 MG CAP GT SCH (09:04)
[2021-01-04] MEDS: ZINC SULF 220 MG CAP GT SCH ×2 (09:04→20:31)
[2021-01-04] MEDS: AZITHROMYCIN 250 MG TAB GT SCH (09:04)
[2021-01-04] MEDS: DOCUSATE 100 MG/10 ML UDC GT SCH (09:04)
[2021-01-04] MEDS: ASCORBIC ACID 500 MG TAB GT SCH ×2 (09:04→20:32)
[2021-01-04] MEDS: MULTIVITAMIN/MINERALS 1 TAB GT SCH (09:05)
[2021-01-04] MEDS: LACTOBACILLUS RHAMNOSUS GG 1 EACH CAP GT SCH (09:05)
[2021-01-04 09:13] LABS: BASOPHILS % (AUTO) 0.5 % (0.0-2.0); EOSINOPHILS % (AUTO) 0.1 % (0.0-4.0); HEMOGLOBIN 7.1 g/dL (12.0-18.0); LYMPHOCYTES # (AUTO) 1.5 K/uL (2.0-11.5); LYMPHOCYTES % (AUTO) 24.4 % (20.5-51.1); MEAN CORPUSCULAR HEMOGLOBIN 29 pg (27-31); MEAN CORPUSCULAR HGB CONC 33 g/dL (33-37); MEAN CORPUSCULAR VOLUME 88.9 fL (80-94); MONOCYTES # (AUTO) 0.3 K/uL (0.8-1.0); MONOCYTES % (AUTO) 4.5 % (1.7-9.3); NEUTROPHILS # (AUTO) 4.2 K/uL (1.8-7.7); NEUTROPHILS % (AUTO) 70.5 % (42.2-75.2); PLATELET COUNT (AUTO) 135 K/uL (140-450); RED BLOOD CELL COUNT(AUTO) 2.47 MIL/uL (4.20-6.10); RED CELL DISTRIBUTION WIDTH 15.8 % (11.6-13.7)
[2021-01-04 09:32] LABS: ANION GAP 13.8 (8-16); CARBON DIOXIDE 24.5 mmol/L (21-32); CREATININE 1.8 mg/dL (0.6-1.3); POTASSIUM 3.3 mmol/L (3.5-5.1)
[2021-01-04 09:34] LABS: MAGNESIUM 1.8 mg/dL (1.8-2.4); PHOSPHORUS 5.2 mg/dL (2.5-4.9)
[2021-01-04] MEDS ORDERED: KCL 20 MEQ/WATER INJ PREMIX 200 ML IV ONE (10:30)
[2021-01-04] MEDS ORDERED: POTASSIUM CHLORIDE 20% 40 MEQ/15 ML UDC GT SCH (12:45)
[2021-01-04] MEDS: SENNA 8.6 MG TAB PO SCH ×3 (13:35→20:31)
[2021-01-04] MEDS: POTASSIUM CHLORIDE 20% 40 MEQ/15 ML UDC GT SCH ×2 (13:35→17:37)
[2021-01-04] MEDS: LACTULOSE 20 GM/30 ML UDC PO SCH ×3 (13:35→20:31)
[2021-01-04] MEDS: THERAHONEY GEL 42.5 GM TP SCH (13:36)
[2021-01-04] MEDS ORDERED: MAGNESIUM CITRATE 300 ML BTL PO SCH (20:00)
[2021-01-05] VITALS (7 sets, daily range): BP systolic 123–152; BP diastolic 72–88
[2021-01-05] MEDS: HYDRAGUARD CREAM TP SCH ×2 (00:05→13:13)
[2021-01-05] MEDS: NACL 0.9% 1,000 ML IV SCH ×2 (03:00→11:15)
[2021-01-05] MEDS: levETIRAcetam 1,000 MG in NACL 0.9% 100 ML IV SCH ×3 (04:24→20:50)
[2021-01-05 05:47] LABS: BASOPHILS % (AUTO) 0.5 % (0.0-2.0); EOSINOPHILS % (AUTO) 0.1 % (0.0-4.0); HEMATOCRIT 22.7 % (36-52); HEMOGLOBIN 7.4 g/dL (12.0-18.0); LYMPHOCYTES # (AUTO) 1.1 K/uL (2.0-11.5); LYMPHOCYTES % (AUTO) 21.2 % (20.5-51.1); MEAN CORPUSCULAR HEMOGLOBIN 29 pg (27-31); MEAN CORPUSCULAR HGB CONC 32 g/dL (33-37); MEAN CORPUSCULAR VOLUME 89.2 fL (80-94); MONOCYTES # (AUTO) 0.2 K/uL (0.8-1.0); MONOCYTES % (AUTO) 4.5 % (1.7-9.3); NEUTROPHILS # (AUTO) 3.8 K/uL (1.8-7.7); NEUTROPHILS % (AUTO) 73.7 % (42.2-75.2); PLATELET COUNT (AUTO) 122 K/uL (140-450); RED BLOOD CELL COUNT(AUTO) 2.54 MIL/uL (4.20-6.10); RED CELL DISTRIBUTION WIDTH 16.4 % (11.6-13.7); WHITE BLOOD COUNT (AUTO) 5.1 K/uL (4.8-10.8)
[2021-01-05 06:11] LABS: MAGNESIUM 1.9 mg/dL (1.8-2.4); PHOSPHORUS 5.1 mg/dL (2.5-4.9)
[2021-01-05 08:06] LABS: ANION GAP 17.7 (8-16); CARBON DIOXIDE 21.3 mmol/L (21-32); CREATININE 1.6 mg/dL (0.6-1.3)
[2021-01-05] MEDS: LACTULOSE 20 GM/30 ML UDC PO SCH ×4 (09:35→20:49)
[2021-01-05] MEDS: ASCORBIC ACID 500 MG TAB GT SCH ×2 (09:35→20:46)
[2021-01-05] MEDS: TAMSULOSIN 0.4 MG CAP GT SCH (09:35)
[2021-01-05] MEDS: ZINC SULF 220 MG CAP GT SCH ×2 (09:36→20:49)
[2021-01-05] MEDS: SENNA 8.6 MG TAB PO SCH ×4 (09:36→20:48)
[2021-01-05] MEDS: LACTOBACILLUS RHAMNOSUS GG 1 EACH CAP GT SCH (09:36)
[2021-01-05] MEDS: MULTIVITAMIN/MINERALS 1 TAB GT SCH (09:36)
[2021-01-05] MEDS: POTASSIUM CHLORIDE 20% 40 MEQ/15 ML UDC GT SCH ×3 (09:40→13:35)
[2021-01-05] MEDS: THERAHONEY GEL 42.5 GM TP SCH (13:13)
[2021-01-05] MEDS ORDERED: ENALAPRILAT 2.5 MG/2 ML VIAL IVP SCH (18:00)
[2021-01-06] VITALS: BP 141/84
[2021-01-06] MEDS: HYDRAGUARD CREAM TP SCH ×2 (00:26→13:37)
[2021-01-06 04:00] VITALS: BP 132/71
[2021-01-06] MEDS: NACL 0.9% 1,000 ML IV SCH (04:30)
[2021-01-06] MEDS: levETIRAcetam 1,000 MG in NACL 0.9% 100 ML IV SCH ×3 (05:11→21:02)
[2021-01-06 07:28] LABS: BASOPHILS % (AUTO) 0.4 % (0.0-2.0); EOSINOPHILS % (AUTO) 0.1 % (0.0-4.0); HEMATOCRIT 23.3 % (36-52); HEMOGLOBIN 7.6 g/dL (12.0-18.0); LYMPHOCYTES # (AUTO) 0.9 K/uL (2.0-11.5); LYMPHOCYTES % (AUTO) 16.7 % (20.5-51.1); MEAN CORPUSCULAR HEMOGLOBIN 29 pg (27-31); MEAN CORPUSCULAR HGB CONC 33 g/dL (33-37); MEAN CORPUSCULAR VOLUME 89.9 fL (80-94); MONOCYTES # (AUTO) 0.2 K/uL (0.8-1.0); MONOCYTES % (AUTO) 4.7 % (1.7-9.3); NEUTROPHILS # (AUTO) 4.1 K/uL (1.8-7.7); NEUTROPHILS % (AUTO) 78.1 % (42.2-75.2); PLATELET COUNT (AUTO) 138 K/uL (140-450); RED BLOOD CELL COUNT(AUTO) 2.59 MIL/uL (4.20-6.10); RED CELL DISTRIBUTION WIDTH 16.1 % (11.6-13.7); WHITE BLOOD COUNT (AUTO) 5.3 K/uL (4.8-10.8)
[2021-01-06 07:46] LABS: MAGNESIUM 1.8 mg/dL (1.8-2.4); PHOSPHORUS 4.3 mg/dL (2.5-4.9)
[2021-01-06 07:57] LABS: CREATININE 1.3 mg/dL (0.6-1.3); POTASSIUM 4.2 mmol/L (3.5-5.1)
[2021-01-06 08:00] VITALS: BP 132/75
[2021-01-06 08:51] LABS: ANION GAP 15.2 (8-16)
[2021-01-06] MEDS: LACTOBACILLUS RHAMNOSUS GG 1 EACH CAP GT SCH (08:55)
[2021-01-06] MEDS: TAMSULOSIN 0.4 MG CAP GT SCH (08:56)
[2021-01-06] MEDS: POTASSIUM CHLORIDE 20% 40 MEQ/15 ML UDC GT SCH (09:00)
[2021-01-06] MEDS: MULTIVITAMIN/MINERALS 1 TAB GT SCH (09:01)
[2021-01-06] MEDS: ASCORBIC ACID 500 MG TAB GT SCH ×2 (09:02→21:02)
[2021-01-06] MEDS: LACTULOSE 20 GM/30 ML UDC PO SCH ×2 (09:03→21:02)
[2021-01-06] MEDS: ZINC SULF 220 MG CAP GT SCH ×2 (09:03→21:02)
[2021-01-06] MEDS: SENNA 8.6 MG TAB PO SCH ×2 (09:04→21:02)
[2021-01-06 09:06] LABS: FERRITIN 310 ng/mL (30-400)
[2021-01-06 12:00] VITALS: BP 122/75
[2021-01-06] MEDS: THERAHONEY GEL 42.5 GM TP SCH (13:36)
[2021-01-06 16:00] VITALS: BP 119/74
[2021-01-06] MEDS: FERROUS SULFATE 300 MG/5 ML UDC GT SCH (17:21)
[2021-01-06 20:00] VITALS: BP 120/82
[2021-01-07] VITALS: BP 91/63
[2021-01-07] MEDS: HYDRAGUARD CREAM TP SCH ×2 (01:29→13:46)
[2021-01-07 04:00] VITALS: BP 115/84
[2021-01-07] MEDS: NACL 0.9% 1,000 ML IV SCH (04:15)
[2021-01-07] MEDS: levETIRAcetam 1,000 MG in NACL 0.9% 100 ML IV SCH ×3 (04:15→21:39)
[2021-01-07 06:43] LABS: BASOPHILS % (AUTO) 0.3 % (0.0-2.0); HEMATOCRIT 25.1 % (36-52); HEMOGLOBIN 8.1 g/dL (12.0-18.0); LYMPHOCYTES % (AUTO) 14.1 % (20.5-51.1); MEAN CORPUSCULAR HEMOGLOBIN 29 pg (27-31); MEAN CORPUSCULAR HGB CONC 32 g/dL (33-37); MEAN CORPUSCULAR VOLUME 89.9 fL (80-94); MONOCYTES # (AUTO) 0.4 K/uL (0.8-1.0); MONOCYTES % (AUTO) 5.1 % (1.7-9.3); NEUTROPHILS # (AUTO) 5.8 K/uL (1.8-7.7); NEUTROPHILS % (AUTO) 80.5 % (42.2-75.2); PLATELET COUNT (AUTO) 158 K/uL (140-450); RED BLOOD CELL COUNT(AUTO) 2.79 MIL/uL (4.20-6.10); RED CELL DISTRIBUTION WIDTH 16.6 % (11.6-13.7); WHITE BLOOD COUNT (AUTO) 7.2 K/uL (4.8-10.8)
[2021-01-07 06:47] LABS: ANION GAP 12.2 (8-16); CARBON DIOXIDE 23.9 mmol/L (21-32); CREATININE 1.2 mg/dL (0.6-1.3); POTASSIUM 4.1 mmol/L (3.5-5.1)
[2021-01-07 06:50] LABS: MAGNESIUM 1.4 mg/dL (1.8-2.4); PHOSPHORUS 4.1 mg/dL (2.5-4.9)
[2021-01-07 08:00] VITALS: BP 135/77
[2021-01-07] MEDS: FERROUS SULFATE 300 MG/5 ML UDC GT SCH ×2 (08:54→16:19)
[2021-01-07] MEDS: LACTULOSE 20 GM/30 ML UDC PO SCH ×2 (08:55→21:24)
[2021-01-07] MEDS: POTASSIUM CHLORIDE 20% 40 MEQ/15 ML UDC GT SCH (08:55)
[2021-01-07] MEDS: LACTOBACILLUS RHAMNOSUS GG 1 EACH CAP GT SCH (08:56)
[2021-01-07] MEDS: MAG SULF 2000 MG/WATER PREMIX 50 ML IV PRN (08:56)
[2021-01-07] MEDS: SENNA 8.6 MG TAB PO SCH ×2 (08:56→21:26)
[2021-01-07] MEDS: ZINC SULF 220 MG CAP GT SCH ×2 (08:57→21:26)
[2021-01-07] MEDS: MULTIVITAMIN/MINERALS 1 TAB GT SCH (08:57)
[2021-01-07] MEDS: ASCORBIC ACID 500 MG TAB GT SCH ×2 (08:57→21:26)
[2021-01-07] MEDS: TAMSULOSIN 0.4 MG CAP GT SCH (08:57)
[2021-01-07 09:06] LABS: IMMUNOGLOBULIN A 181 mg/dL (90-386)
[2021-01-07 12:00] VITALS: BP 120/64
[2021-01-07 13:17] LABS: IMMUNOGLOBULIN G 1943 mg/dL (700 - 1600); IMMUNOGLOBULIN M 176 mg/dL (40 - 230)
[2021-01-07] MEDS: THERAHONEY GEL 42.5 GM TP SCH (13:46)
[2021-01-07 16:00] VITALS: BP 102/51
[2021-01-07 20:00] VITALS: BP 117/64
[2021-01-08] VITALS: BP 122/70
[2021-01-08 04:00] VITALS: BP 116/74
[2021-01-08] MEDS: levETIRAcetam 1,000 MG in NACL 0.9% 100 ML IV SCH (04:40)
[2021-01-08] MEDS: HYDRAGUARD CREAM TP SCH ×2 (05:00→13:50)
[2021-01-08 08:00] VITALS: BP 121/63
[2021-01-08] MEDS: LACTULOSE 20 GM/30 ML UDC PO SCH ×2 (09:10→12:55)
[2021-01-08] MEDS: LACTOBACILLUS RHAMNOSUS GG 1 EACH CAP GT SCH (09:10)
[2021-01-08] MEDS: ASCORBIC ACID 500 MG TAB GT SCH ×2 (09:10→20:50)
[2021-01-08] MEDS: ZINC SULF 220 MG CAP GT SCH ×2 (09:10→20:50)
[2021-01-08] MEDS: SENNA 8.6 MG TAB PO SCH (09:10)
[2021-01-08] MEDS: MULTIVITAMIN/MINERALS 1 TAB GT SCH (09:11)
[2021-01-08] MEDS: TAMSULOSIN 0.4 MG CAP GT SCH (09:11)
[2021-01-08] MEDS: POTASSIUM CHLORIDE 20% 40 MEQ/15 ML UDC GT SCH (09:14)
[2021-01-08] MEDS: FERROUS SULFATE 300 MG/5 ML UDC GT SCH ×2 (09:14→17:50)
[2021-01-08 12:00] VITALS: BP 109/58
[2021-01-08 12:08] LABS: BASOPHILS % (AUTO) 0.3 % (0.0-2.0); HEMATOCRIT 26.3 % (36-52); HEMOGLOBIN 8.6 g/dL (12.0-18.0); LYMPHOCYTES # (AUTO) 1.6 K/uL (2.0-11.5); LYMPHOCYTES % (AUTO) 22.3 % (20.5-51.1); MEAN CORPUSCULAR HEMOGLOBIN 29 pg (27-31); MEAN CORPUSCULAR HGB CONC 33 g/dL (33-37); MEAN CORPUSCULAR VOLUME 89.6 fL (80-94); MONOCYTES # (AUTO) 0.3 K/uL (0.8-1.0); MONOCYTES % (AUTO) 4.9 % (1.7-9.3); NEUTROPHILS # (AUTO) 5.2 K/uL (1.8-7.7); NEUTROPHILS % (AUTO) 72.5 % (42.2-75.2); PLATELET COUNT (AUTO) 225 K/uL (140-450); RED BLOOD CELL COUNT(AUTO) 2.94 MIL/uL (4.20-6.10); RED CELL DISTRIBUTION WIDTH 16.1 % (11.6-13.7); WHITE BLOOD COUNT (AUTO) 7.1 K/uL (4.8-10.8)
[2021-01-08 12:19] LABS: ANION GAP 14.3 (8-16); CARBON DIOXIDE 23.8 mmol/L (21-32); CREATININE 1.1 mg/dL (0.6-1.3); POTASSIUM 4.1 mmol/L (3.5-5.1)
[2021-01-08] MEDS: THERAHONEY GEL 42.5 GM TP SCH (13:50)
[2021-01-08 16:00] VITALS: BP 113/66
[2021-01-08 20:00] VITALS: BP 96/47
[2021-01-08] MEDS: levETIRAcetam 100 MG/ML ORASYR GT SCH (20:49)
[2021-01-09] VITALS: BP 114/66
[2021-01-09] MEDS: HYDRAGUARD CREAM TP SCH ×2 (00:23→13:27)
[2021-01-09 04:00] VITALS: BP 105/54
[2021-01-09 05:58] LABS: ANION GAP 12.1 (8-16); CARBON DIOXIDE 25.2 mmol/L (21-32); CREATININE 1.1 mg/dL (0.6-1.3); POTASSIUM 4.3 mmol/L (3.5-5.1)
[2021-01-09 06:12] LABS: BASOPHILS % (AUTO) 0.3 % (0.0-2.0); HEMATOCRIT 22.4 % (36-52); HEMOGLOBIN 7.4 g/dL (12.0-18.0); LYMPHOCYTES # (AUTO) 1.4 K/uL (2.0-11.5); LYMPHOCYTES % (AUTO) 20.1 % (20.5-51.1); MEAN CORPUSCULAR HEMOGLOBIN 29 pg (27-31); MEAN CORPUSCULAR HGB CONC 33 g/dL (33-37); MEAN CORPUSCULAR VOLUME 89.8 fL (80-94); MONOCYTES # (AUTO) 0.4 K/uL (0.8-1.0); NEUTROPHILS # (AUTO) 5.2 K/uL (1.8-7.7); NEUTROPHILS % (AUTO) 73.6 % (42.2-75.2); PLATELET COUNT (AUTO) 230 K/uL (140-450); RED CELL DISTRIBUTION WIDTH 16.6 % (11.6-13.7)
[2021-01-09 08:00] VITALS: BP 121/60
[2021-01-09] MEDS: MAG SULF 2000 MG/WATER PREMIX 50 ML IV PRN (09:06)
[2021-01-09] MEDS: ZINC SULF 220 MG CAP GT SCH ×2 (09:07→21:40)
[2021-01-09] MEDS: MULTIVITAMIN/MINERALS 1 TAB GT SCH (09:07)
[2021-01-09] MEDS: levETIRAcetam 100 MG/ML ORASYR GT SCH ×2 (09:07→21:39)
[2021-01-09] MEDS: LACTOBACILLUS RHAMNOSUS GG 1 EACH CAP GT SCH (09:07)
[2021-01-09] MEDS: ASCORBIC ACID 500 MG TAB GT SCH ×2 (09:07→21:45)
[2021-01-09] MEDS: TAMSULOSIN 0.4 MG CAP GT SCH (09:07)
[2021-01-09] MEDS: LACTULOSE 20 GM/30 ML UDC PO SCH (09:07)
[2021-01-09] MEDS: POTASSIUM CHLORIDE 20% 40 MEQ/15 ML UDC GT SCH (09:08)
[2021-01-09] MEDS: FERROUS SULFATE 300 MG/5 ML UDC GT SCH ×2 (09:08→17:03)
[2021-01-09 12:00] VITALS: BP 138/77
[2021-01-09] MEDS: THERAHONEY GEL 42.5 GM TP SCH (13:27)
[2021-01-09 16:00] VITALS: BP 128/59
[2021-01-09 20:00] VITALS: BP 132/72
[2021-01-09 22:05] LABS: URINE TOTAL PROTEIN 52.1 mg/dL (0-12)
[2021-01-10] VITALS: BP 124/72
[2021-01-10] MEDS: HYDRAGUARD CREAM TP SCH ×2 (01:20→13:46)
[2021-01-10 04:00] VITALS: BP 126/68
[2021-01-10 06:16] LABS: BASOPHILS % (AUTO) 0.3 % (0.0-2.0); HEMATOCRIT 25.5 % (36-52); HEMOGLOBIN 8.4 g/dL (12.0-18.0); LYMPHOCYTES # (AUTO) 1.5 K/uL (2.0-11.5); LYMPHOCYTES % (AUTO) 16.1 % (20.5-51.1); MEAN CORPUSCULAR HEMOGLOBIN 29 pg (27-31); MEAN CORPUSCULAR HGB CONC 33 g/dL (33-37); MEAN CORPUSCULAR VOLUME 88.4 fL (80-94); MONOCYTES # (AUTO) 0.4 K/uL (0.8-1.0); MONOCYTES % (AUTO) 4.4 % (1.7-9.3); NEUTROPHILS # (AUTO) 7.2 K/uL (1.8-7.7); NEUTROPHILS % (AUTO) 79.2 % (42.2-75.2); PLATELET COUNT (AUTO) 332 K/uL (140-450); RED BLOOD CELL COUNT(AUTO) 2.88 MIL/uL (4.20-6.10); RED CELL DISTRIBUTION WIDTH 16.5 % (11.6-13.7); WHITE BLOOD COUNT (AUTO) 9.1 K/uL (4.8-10.8)
[2021-01-10 06:20] LABS: ANION GAP 14.1 (8-16); CARBON DIOXIDE 25.7 mmol/L (21-32); CREATININE 0.9 mg/dL (0.6-1.3); POTASSIUM 4.8 mmol/L (3.5-5.1)
[2021-01-10 08:00] VITALS: BP 161/82
[2021-01-10] MEDS: LACTOBACILLUS RHAMNOSUS GG 1 EACH CAP GT SCH (09:15)
[2021-01-10] MEDS: FERROUS SULFATE 300 MG/5 ML UDC GT SCH ×2 (09:15→17:19)
[2021-01-10] MEDS: TAMSULOSIN 0.4 MG CAP GT SCH (09:16)
[2021-01-10] MEDS: ASCORBIC ACID 500 MG TAB GT SCH ×2 (09:16→21:08)
[2021-01-10] MEDS: MULTIVITAMIN/MINERALS 1 TAB GT SCH (09:16)
[2021-01-10] MEDS: POTASSIUM CHLORIDE 20% 40 MEQ/15 ML UDC GT SCH (09:17)
[2021-01-10] MEDS: ZINC SULF 220 MG CAP GT SCH ×2 (09:17→21:09)
[2021-01-10] MEDS: levETIRAcetam 100 MG/ML ORASYR GT SCH ×2 (09:17→21:08)
[2021-01-10] MEDS: LACTULOSE 20 GM/30 ML UDC PO SCH (09:18)
[2021-01-10 12:00] VITALS: BP 121/64
[2021-01-10] MEDS: THERAHONEY GEL 42.5 GM TP SCH (13:47)
[2021-01-10 16:00] VITALS: BP 113/55
[2021-01-10 20:00] VITALS: BP 104/61
[2021-01-11] VITALS (8 sets, daily range): BP systolic 88–129; BP diastolic 45–73
[2021-01-11] MEDS: HYDRAGUARD CREAM TP SCH ×2 (00:02→13:21)
[2021-01-11 06:16] LABS: BASOPHILS % (AUTO) 0.2 % (0.0-2.0); EOSINOPHILS % (AUTO) 0.2 % (0.0-4.0); HEMATOCRIT 23.8 % (36-52); HEMOGLOBIN 7.9 g/dL (12.0-18.0); LYMPHOCYTES # (AUTO) 1.5 K/uL (2.0-11.5); LYMPHOCYTES % (AUTO) 16.1 % (20.5-51.1); MEAN CORPUSCULAR HEMOGLOBIN 30 pg (27-31); MEAN CORPUSCULAR HGB CONC 33 g/dL (33-37); MEAN CORPUSCULAR VOLUME 89.6 fL (80-94); MONOCYTES # (AUTO) 0.2 K/uL (0.8-1.0); MONOCYTES % (AUTO) 2.5 % (1.7-9.3); NEUTROPHILS # (AUTO) 7.4 K/uL (1.8-7.7); PLATELET COUNT (AUTO) 325 K/uL (140-450); RED BLOOD CELL COUNT(AUTO) 2.66 MIL/uL (4.20-6.10); RED CELL DISTRIBUTION WIDTH 16.1 % (11.6-13.7); WHITE BLOOD COUNT (AUTO) 9.1 K/uL (4.8-10.8)
[2021-01-11 06:23] LABS: ANION GAP 12.4 (8-16); CARBON DIOXIDE 26.2 mmol/L (21-32); CREATININE 0.9 mg/dL (0.6-1.3); POTASSIUM 4.6 mmol/L (3.5-5.1)
[2021-01-11] MEDS: FERROUS SULFATE 300 MG/5 ML UDC GT SCH ×2 (08:18→17:54)
[2021-01-11] MEDS: LACTOBACILLUS RHAMNOSUS GG 1 EACH CAP GT SCH (08:19)
[2021-01-11] MEDS: MULTIVITAMIN/MINERALS 1 TAB GT SCH (08:19)
[2021-01-11] MEDS: POTASSIUM CHLORIDE 20% 40 MEQ/15 ML UDC GT SCH (08:19)
[2021-01-11] MEDS: ZINC SULF 220 MG CAP GT SCH ×2 (08:19→20:44)
[2021-01-11] MEDS: levETIRAcetam 100 MG/ML ORASYR GT SCH ×2 (08:19→20:43)
[2021-01-11] MEDS: TAMSULOSIN 0.4 MG CAP GT SCH (08:19)
[2021-01-11] MEDS: ASCORBIC ACID 500 MG TAB GT SCH ×2 (08:19→20:44)
[2021-01-11] MEDS: LACTULOSE 20 GM/30 ML UDC PO SCH (08:20)
[2021-01-11] MEDS: THERAHONEY GEL 42.5 GM TP SCH (13:21)
[2021-01-12] VITALS: BP 116/65
[2021-01-12] MEDS: HYDRAGUARD CREAM TP SCH ×2 (01:00→12:44)
[2021-01-12 04:00] VITALS: BP 116/63
[2021-01-12 08:00] VITALS: BP 108/60
[2021-01-12] MEDS: LACTOBACILLUS RHAMNOSUS GG 1 EACH CAP GT SCH (08:12)
[2021-01-12] MEDS: LACTULOSE 20 GM/30 ML UDC PO SCH (08:12)
[2021-01-12] MEDS: POTASSIUM CHLORIDE 20% 40 MEQ/15 ML UDC GT SCH (08:12)
[2021-01-12] MEDS: MULTIVITAMIN/MINERALS 1 TAB GT SCH (08:12)
[2021-01-12] MEDS: ASCORBIC ACID 500 MG TAB GT SCH (08:12)
[2021-01-12] MEDS: levETIRAcetam 100 MG/ML ORASYR GT SCH (08:13)
[2021-01-12] MEDS: FERROUS SULFATE 300 MG/5 ML UDC GT SCH (08:13)
[2021-01-12] MEDS: TAMSULOSIN 0.4 MG CAP GT SCH (08:13)
[2021-01-12] MEDS: ZINC SULF 220 MG CAP GT SCH (08:13)
[2021-01-12] MEDS ORDERED: GENTAMICIN IV (10:53)
[2021-01-12] MEDS ORDERED: [UNRECOGNIZED DRUG - CODE] PO (10:53)
[2021-01-12] MEDS: THERAHONEY GEL 42.5 GM TP SCH (12:44)
== END 2021-01-12 14:00 | DRG 870 ==
LOC: MED 03:33 → MTU 05:31 → MMU 08:09
PROC: 5A1955Z Respiratory Ventilation, Greater than 96 Consecutive Hours (ICD-10-PCS; principal; 2020-12-31)
PROC: 30233N1 Transfusion of Nonautologous Red Blood Cells into Peripheral Vein, Percutaneous Approach (ICD-10-PCS; 2020-12-31)
PROC: 0BC78ZZ Extirpation of Matter from Left Main Bronchus, Via Natural or Artificial Opening Endoscopic (ICD-10-PCS; 2021-01-01)
DX: A41.9 Sepsis, unspecified organism (principal); J96.20 Acute and chronic respiratory failure, unspecified whether with hypoxia or hypercapnia; G93.41 Metabolic encephalopathy; N17.0 Acute kidney failure with tubular necrosis; E43 Unspecified severe protein-calorie malnutrition; J18.9 Pneumonia, unspecified organism; B37.49 Other urogenital candidiasis; J90 Pleural effusion, not elsewhere classified; R40.3 Persistent vegetative state; Z99.11 Dependence on respirator [ventilator] status; E87.0 Hyperosmolality and hypernatremia; Z20.822 Contact with and (suspected) exposure to COVID-19; D50.9 Iron deficiency anemia, unspecified; D63.8 Anemia in other chronic diseases classified elsewhere; F79 Unspecified intellectual disabilities; G80.9 Cerebral palsy, unspecified; K59.00 Constipation, unspecified; K76.9 Liver disease, unspecified; L89.159 Pressure ulcer of sacral region, unspecified stage; G40.909 Epilepsy, unspecified, not intractable, without status epilepticus; E83.42 Hypomagnesemia; N18.31 Chronic kidney disease, stage 3a; N40.0 Benign prostatic hyperplasia without lower urinary tract symptoms; R13.10 Dysphagia, unspecified; Z93.0 Tracheostomy status; Z93.1 Gastrostomy status; Z95.0 Presence of cardiac pacemaker; Z68.27 Body mass index [BMI] 27.0-27.9, adult; Z88.7 Allergy status to serum and vaccine; Z88.8 Allergy status to other drugs, medicaments and biological substances; Z79.899 Other long term (current) drug therapy
CPT/HCPCS: 36415; 70450; 71045; 74018; 76604; 80048; 80053; 80184; 81001; 82150; 82272; 82607; 82728; 82746; 82977; 83036; 83540; 83615; 83690; 83735; 83880; 84100; 84134; 84156; 84165; 84436; 84443; 84484; 85025; 85045; 85610; 85651; 85730; 86140; 86886; 86900; 86901; 86920; 87040; 87070; 87081; 87086; 87205; 89220; 94003; 99285; J0696; J1642; J1953; J2250; J2405; J3475; J3480; J3490; J7030; J7060; P9016

== ENCOUNTER 2021-01-16 17:30 | Inpatient (IN) | payer OTHER, SELFPAY ==
[~2021-01-16] VITALS: Ht 157.5 cm; Wt 54.4 kg
[~2021-01-16 17:30] MED LIST changes: +ASCO500T95 PO; +DOCU-299 GT; +GENTAMICIN IV; +ZINC220C28 PO; +[UNRECOGNIZED DRUG - CODE] PO
[2021-01-16 17:35] VITALS: BP 73/31
--- NOTE | 2021-01-16 17:35 | NUR ---
CAME IN ER THIS 45 YEAR OLD MALE PER STRETCHER VIA AMBULANCE ACCOMPANIED BY [facility]EDICS FROM [facility] [place], WITH CHIEF COMPLAINTS OF HEMATURIA IN HAMEED CATHETER AND HYPOXIA TODAY. TRACH TO O2 AT 6L/MIN VIA TRACH COLLAR, AWAKE, ALERT, APHASIC. WITH RIGHT UPPER ARM PICC LINE NOTED, WITH G-TUBE IN PLACE FOR FEEDING, WITH HAMEED CATHER F16 ATTACHED TO URINE BAG DRAINING TO A SEROUSANGENOUS BLOOD NOTED. RT CAME CAME AND PLACE ON O2 AT 6L/MIN VIA TRACH COLLAR, FIO2-30%, [id number]-88% NOTED. SAFETY MEASURES IN PLACE AND CONTINUE MONITOR
[2021-01-16] MEDS ORDERED: NACL 0.9% 1,000 ML IV ONE ×2 (17:50→21:10)
--- NOTE | 2021-01-16 17:55 | NUR ---
SEEN AND EXAMINED BY ACE GONZALEZ
[2021-01-16 18:16] LABS: HEMATOCRIT 26.7 % (36-52); HEMOGLOBIN 8.2 g/dL (12.0-18.0); MEAN CORPUSCULAR HEMOGLOBIN 28 pg (27-31); MEAN CORPUSCULAR HGB CONC 31 g/dL (33-37); MEAN CORPUSCULAR VOLUME 91.7 fL (80-94); PLATELET COUNT (AUTO) 496 K/uL (140-450); RED BLOOD CELL COUNT(AUTO) 2.91 MIL/uL (4.20-6.10); RED CELL DISTRIBUTION WIDTH 17.2 % (11.6-13.7); WHITE BLOOD COUNT (AUTO) 17.1 K/uL (4.8-10.8)
--- NOTE | 2021-01-16 18:20 | NUR ---
COVID MILVIA TEST AND INFLUENZA A AND B SWAB DONE, URINE SAMPLE COLLECTED IN HAMEED CATHETER AND SENT TO LAB
[2021-01-16 18:33] LABS: PROTHROMBIN TIME 13.3 secs (10.8-13.4)
[2021-01-16 18:34] LABS: APPEARANCE,URINE BLOODY (CLEAR); BLOOD, URINE 3+ (NEGATIVE); COLOR,URINE RED (YELLOW); PH,URINE 7.5 (5.0-9.0); UGLUCOSE TRACE (NEGATIVE)
[2021-01-16] MEDS ORDERED: NOREPINEPHRINE 4 MG in DEXTROSE 5% 250 ML IV ONE (18:35)
[2021-01-16 18:43] LABS: ALBUMIN 1.5 g/dL (3.4-5.0); ANION GAP 19.1 (8-16); CARBON DIOXIDE 20.9 mmol/L (21-32); CREATININE 2.1 mg/dL (0.6-1.3); TOTAL BILIRUBIN 0.2 mg/dL (0.0-1.0)
[2021-01-16 18:52] LABS: LYMPHOCYTES % (MANUAL) 9 % (20-46); MONOCYTES % (MANUAL) 1 % (5-12)
[2021-01-16] MEDS ORDERED: NOREPINEPHRINE 4 MG/4 ML VIAL IV ONE ×2 (18:52→18:57)
[2021-01-16] MEDS ORDERED: DEXTROSE 50% 50 ML SYR IVP ONE ×2 (18:54→19:00)
[2021-01-16 18:57] LABS: NITRITE, URINE NEGATIVE (NEGATIVE)
[2021-01-16 18:58] LABS: LEUKOCYTE ESTERASE ,URINE NEGATIVE (NEGATIVE)
--- NOTE | 2021-01-16 18:58 | NUR ---
GLUCOSE-29, DEXTROSE 50% 50ML IV BOLUS GIVEN PROTOCOL.
[2021-01-16 18:59] LABS: BILIRUBIN,URINE NEGATIVE (NEGATIVE); RBC,URINE TOO NUMEROUS TO COUN /HPF (0-5); WBC,URINE NONE SEEN /HPF (0-5)
[2021-01-16] MEDS ORDERED: NOREPINEPHRINE 8 MG in DEXTROSE 5% 250 ML IV PRN (19:00)
[2021-01-16 19:06] LABS: LACTATE DEHYDROGENASE 233 U/L (85-227)
--- NOTE | 2021-01-16 19:06 | NUR ---
STILL LOW BP- 52/23MMHG, NOREPINEPHRINE 5MCG/MIN STARTED AND VERIFIED BY CHARGE NURSE
[2021-01-16 19:15] LABS: C-REACTIVE PROTEIN QUANT 36.6 mg/dL (0.0-0.9)
--- NOTE | 2021-01-16 19:21 | NUR ---
PT FOUND IN SEMI-BRYSON'S POSITION IN BED. PT HAS EQUAL RISE AND FALL UPON RESPIRATION. NO DISTRESS NOTED. NO URINE OUTPUT NOTED. BED LOCKED IN LOWEST POSITION WITH 2 SIDE RAILS UP FOR SAFETY.
--- NOTE | 2021-01-16 19:21 | NUR ---
RECEIVED TRANSFER OF CARE REPORT FROM CLARA LI FOR CONTINUATION OF CARE.
--- NOTE | 2021-01-16 19:21 | NUR ---
ENDOSED TO POLL CLERK FOR CONTINUITY OF CARE
--- NOTE | 2021-01-16 19:30 | NUR ---
SEE IV SPREADSHEET FOR UPDATED VITALS.
[2021-01-16] MEDS ORDERED: ZOLPIDEM 5 MG TAB PO PRN (20:40)
[2021-01-16] MEDS ORDERED: DOCUSATE SODIUM 100 MG GELCAP PO PRN (20:40)
[2021-01-16] MEDS ORDERED: ONDANSETRON 4 MG/2 ML VIAL IVP PRN (20:40)
[2021-01-16] MEDS ORDERED: MORPHINE SULFATE 2 MG/ML SYR IVP PRN (20:40)
[2021-01-16] MEDS ORDERED: HYDROcodone/APAP 5/325 MG 1 TAB TAB PO PRN (20:40)
[2021-01-16] MEDS ORDERED: LORazepam 2 MG/ML VIAL IM/IVP PRN (20:40)
[2021-01-16] MEDS ORDERED: ACETAMINOPHEN 325 MG TAB PO PRN (20:40)
[2021-01-16] MEDS ORDERED: INSULIN LISPRO SLIDING SCALE 100 UNITS/ML VIAL SUBQ PRN (20:45)
[2021-01-16] MEDS ORDERED: LOVENOX 1MG/KG Q12H SUBQ SCH (20:50)
[2021-01-16] MEDS ORDERED: MAGNESIUM HYDROXIDE 2400 MG/30 ML UDC PO PRN (20:50)
--- NOTE | 2021-01-16 20:53 | NUR ---
SEIZURES PRECAUTIONS INITIATED.
--- NOTE | 2021-01-16 20:57 | NUR ---
ULTRASOUND AT BEDSIDE.
[2021-01-16] MEDS ORDERED: COLISTIMETHATE 150 MG IV SCH (21:00)
[2021-01-16] MEDS ORDERED: NON-FORMULARY ITEM (Lactobacillus Acidophilus (Acidophilus) 1 EACH) GT/PO SCH (21:00)
[2021-01-16] MEDS ORDERED: NON-FORMULARY ITEM (Levetiracetam* (Keppra Xr*) 500 MG) GT/PO SCH (21:00)
[2021-01-16] MEDS ORDERED: MINOCYCLINE HCL PO SCH (21:00)
[2021-01-16] MEDS ORDERED: PIPERACILLIN/TAZOBACTAM 3.375 GM in DEXTROSE 5% 50 ML IV ONE (21:10)
--- NOTE | 2021-01-16 21:10 | NUR ---
SPOKE TO DR STEWART AND PER DR STEWART, TO START ZOSYN 3.375 Q8H, NS BOLUS, AND VASOPRESSIN 0.03U QMIN
[2021-01-16 21:14] LABS: CHOL/HDL RATIO 5.6 (1-4.5); FREE T4 (FREE THYROXINE) 0.67 ng/dL (0.76-1.46); MAGNESIUM 1.8 mg/dL (1.8-2.4); PHOSPHORUS 6.5 mg/dL (2.5-4.9); THYROID STIMULATING HORMONE 3.69 uIU/mL (0.34-3.74)
[2021-01-16] MEDS ORDERED: PIPERACILLIN/TAZOBACTAM 3.375 GM VIAL IV ONE (21:17)
[2021-01-16] MEDS ORDERED: VASOPRESSIN 20 UNITS/ML VIAL ONE (21:25)
[2021-01-16] MEDS: VASOPRESSIN 20 UNITS in NACL 0.9% 250 ML IV SCH (21:33)
--- NOTE | 2021-01-16 22:26 | NUR ---
PER LASHELL RT, TO BE NOTIFIED IF O2 SAT DROPS BELOW 85%. Addendum: 01/16/21 at 2344 by MEDOE PER LASHELL RT, TO BE NOTIFIED IF O2 SAT DROPS BELOW 85% SO PT CAN BE PUT ON VENT.
--- NOTE | 2021-01-16 22:27 | NUR ---
AT BEDSIDE PT DESATURATING IN LOW 80s. SUCTIONED PT AND SPO2 IMPROVED TO 92%. RECIEVED PT ON COOL AEROSOL 12L @60%. NO WORK OF BREATHING NOTICE AT THIS TIME. RN COMPA WAS TOLD TO CALL ME WHEN PT DESATURATE SO THAT PT CAN BE PLACED ON VENT SUPPORT.
--- NOTE | 2021-01-16 22:47 | NUR ---
SPOKE TO DR STEINER AND PER DR STEINER, TO START PT ON NS AT 120ML/HR AND TO CONTACT TERRY REGARDING FURTHER INSTRUCTIONS OF BP CONTROL.
--- NOTE | 2021-01-16 22:48 | NUR ---
PAGED OUT TO DR STEWART AND AWAITING RETURN CALL.
[2021-01-16] MEDS: NACL 0.9% 1,000 ML IV SCH ×2 (22:56→23:10)
--- NOTE | 2021-01-16 22:57 | NUR ---
PT MOTHER CALLED AND GAVE UPDATE.
--- NOTE | 2021-01-16 23:02 | NUR ---
PER JATIN, TO START PT ON COLLEEN-SYNEPHRINE AT 50MCG/MIN
[2021-01-16] MEDS ORDERED: PHENYLEPHRINE 10 MG/ML VIAL ONE (23:04)
[2021-01-16] MEDS ORDERED: PHENYLEPHRINE 10 MG in NACL 0.9% 250 ML IV PRN (23:10)
[2021-01-17] VITALS (30 sets, daily range): BP systolic 49–89; BP diastolic 26–56
[2021-01-17] MEDS ORDERED: PIPERACILLIN/TAZOBACTAM 3.375 GM in DEXTROSE 5% 50 ML IV SCH ×2
--- NOTE | 2021-01-17 | NUR ---
ZOSYN MED ORDER FROM DR STEWART 3.375G Q8H ADMINISTERED AT 2120. NOT ENTERED CORRECTLY IN MED ORDER NEW ORDER PLACED FOR 1 TIME DOES AT THIS TIME BUT WAS ADMINSITERED AT 2120.
[2021-01-17] MEDS ORDERED: NOREPINEPHRINE 4 MG/4 ML VIAL IV ONE ×2 (00:54→04:59)
--- NOTE | 2021-01-17 01:00 | NUR ---
NEW LEVOPHED BAG HANGED AT THIS TIME. NO URINE OUTPUT IS NOTED.
[2021-01-17] MEDS: BLOOD GLUCOSE MONITORING 1 DEV DEV FS SCH ×5 (01:07→21:00)
[2021-01-17] MEDS ORDERED: CRUSHER, PILL MC ONE (01:21)
[2021-01-17] MEDS ORDERED: PHENYLEPHRINE 10 MG/ML VIAL ONE ×6 (01:23→07:37)
[2021-01-17] MEDS: DOCUSATE SODIUM 100 MG GELCAP PO SCH ×2 (01:24→09:00)
[2021-01-17] MEDS: ASCORBIC ACID 500 MG TAB PO SCH ×3 (01:25→21:00)
[2021-01-17] MEDS: carBAMazepine 200 MG TAB GT SCH ×3 (01:25→21:00)
[2021-01-17] MEDS: ENOXAPARIN 60 MG/0.6 ML SYR SUBQ SCH ×3 (01:33→21:00)
--- NOTE | 2021-01-17 01:33 | NUR ---
New bag of Andrew-Synephrine 10mg hung at this time, current titration rate 150 mcg/min.
--- NOTE | 2021-01-17 02:39 | NUR ---
New bag of Andrew-Synephrine 10mg hung at this time, current titration rate 150 mcg/min.
--- NOTE | 2021-01-17 03:08 | NUR ---
BLOOD NOTED IN PERINEAL AREA WITH SMALL CLOTS. PERINEAL CARE PERFORMED. PT TOLERATED PERINEAL CARE. SACRAL WOUND ASSESSMENT AND CARE PERFORMED AND DOCUMENTED. PT POSITIONED ON LEFT SIDE TO ALLEVIATE PRESSURE FROM SACRAL AREA.
--- NOTE | 2021-01-17 03:28 | NUR ---
Pt taken to CT via issa on front desk monitor w/ RN, RT & vehicle operator technician.
--- NOTE | 2021-01-17 03:46 | NUR ---
New bag of Andrew-Synephrine 10mg hung at this time, current titration rate 150 mcg/min.
--- NOTE | 2021-01-17 04:08 | NUR ---
PT FOUND ON LEFT SIDE IN BED. PT HAS EQUAL RISE AND FALL UPON RESPIRATION. NO DISTRESS NOTED. NO URINE OUTPUT NOTED. BED LOCKED IN LOWEST POSITION WITH 2 SIDE RAILS UP FOR SAFETY.
--- NOTE | 2021-01-17 04:10 | NUR ---
Pt's urinary gandara catheter flushed w/ 10 cc of NS. Observed gandara catheter is 18 fringe with observed bleeding from urethra, no new urine output noted after flushing of catheter at this time.
--- NOTE | 2021-01-17 04:15 | NUR ---
CONTACTED DR STEINER VIA TXT FOR PATIENT HAVING OVER 3 LITERS OF FLUIDS WITH NO URINE OUTPUT AND THAT BLADDER SCAN SHOWS PATIENT IS FULL OF URINE.
--- NOTE | 2021-01-17 04:23 | NUR ---
RT AT BEDSIDE. PT IS BEING PLACED ON VENTILATOR SETTINGS PER [facility] FACILITY.
[2021-01-17] MEDS ORDERED: PIPERACILLIN/TAZOBACTAM 3.375 GM VIAL IV ONE (04:59)
--- NOTE | 2021-01-17 05:15 | NUR ---
New bag of Levophed 8mg in 250ml of D5 rate continued at 30mcg/min & Andrew-Synephrine 10mg in 250 ml of NS continued running at 150 mcg/min hung at this time.
[2021-01-17] MEDS: PIPERACILLIN/TAZOBACTAM 3.375 GM in DEXTROSE 5% 50 ML IV SCH ×3 (05:20→23:55)
--- NOTE | 2021-01-17 05:25 | NUR ---
MRSA SWAB COLLECTED AND WALKED TO LAB.
--- NOTE | 2021-01-17 05:35 | NUR ---
CALLED DR STEINER VIA FOR PATIENT HAVING OVER 3 LITERS OF FLUIDS WITH NO URINE OUTPUT AND THAT BLADDER SCAN SHOWS PATIENT IS FULL OF URINE. PER DR STEINER, TO CALL ON-CALL UROLOGIST.
--- NOTE | 2021-01-17 05:42 | NUR ---
CALLED ON-CALL UROLOGIST "DR BEJARANO" AND PER DR BEJARANO, TO REMOVE CURRENT HAMEED CATHETER THAT THE PT WAS ADMITED WITH, INSERT A NEW HAMEED CATHETER AND IF THERE IS NO URINE OUTPUT, TO RECONTACT HIM.
[2021-01-17] MEDS ORDERED: VASOPRESSIN 20 UNITS/ML VIAL ONE (05:45)
--- NOTE | 2021-01-17 06:00 | NUR ---
New bag of Vasopressin 20 units in 250 ml NS continued at 0.04 units/min at this time.
--- NOTE | 2021-01-17 06:00 | NUR ---
# 16 FR Nunez catheter with 10 ml utilizing sterile technique. Immediate return of 0 ml NO urine noted. Bedside drainage bag placed below level of bladder. Pt tolerated procedure WELL.
--- NOTE | 2021-01-17 06:08 | NUR ---
UPON REMOVAL OF ORIGINAL HAMEED CATHETER THAT THE PT WAS ADMITTED WITH PER DR BEJARANO REQUEST, THERE WERE A FEW SMALL CLOTS NOTED. AFTER INSERTING A NEW URINARY CATHETER PER DR BEJARANO REQUEST, THERE WAS MINIMAL URINARY RETURN THAT IS LIGHT RED. DR BEJARANO WAS NOTIFIED OF FINDINGS.
--- NOTE | 2021-01-17 06:13 | NUR ---
CALLED DR BEJARANO AFTER FLUSHING THE CATHETER WITH NO RETURN. PER DR BEJARANO, DR BEJARANO REQUESTED AN IRRIGATION TRAY WITH A 20-22FR 3-WAY CATHETER TO BE READY WHEN HE ARRIVES TO SEE PT IN APPROXIMATELY 1.5 HOURS.
--- NOTE | 2021-01-17 06:25 | NUR ---
New bag of NeoSynephrine 10 mg in 250 ml of NS continued at 150 mcg/min at this time.
[2021-01-17] MEDS: NACL 0.9% 1,000 ML IV SCH ×9 (06:33→23:24)
--- NOTE | 2021-01-17 07:08 | NUR ---
Blood labs collected from Rt upper arm PICC line. PICC line flushed w/ 10 cc of NS , line patent.
[2021-01-17 07:12] LABS: BASOPHILS # (AUTO) 0.1 K/uL (0.00-0.22); BASOPHILS % (AUTO) 0.4 % (0.0-2.0); EOSINOPHILS # (AUTO) 0.1 K/uL (0-0.4); EOSINOPHILS % (AUTO) 0.5 % (0.0-4.0); HEMATOCRIT 28.5 % (36-52); HEMOGLOBIN 8.6 g/dL (12.0-18.0); LYMPHOCYTES # (AUTO) 1.7 K/uL (2.0-11.5); LYMPHOCYTES % (AUTO) 7.9 % (20.5-51.1); MEAN CORPUSCULAR HEMOGLOBIN 29 pg (27-31); MEAN CORPUSCULAR HGB CONC 30 g/dL (33-37); MONOCYTES # (AUTO) 0.5 K/uL (0.8-1.0); MONOCYTES % (AUTO) 2.5 % (1.7-9.3); NEUTROPHILS # (AUTO) 19.2 K/uL (1.8-7.7); NEUTROPHILS % (AUTO) 88.7 % (42.2-75.2); PLATELET COUNT (AUTO) 469 K/uL (140-450); RED CELL DISTRIBUTION WIDTH 18.1 % (11.6-13.7); WHITE BLOOD COUNT (AUTO) 21.7 K/uL (4.8-10.8)
--- NOTE | 2021-01-17 07:17 | NUR ---
RECEIVED ON A [employer] R860 VENTILATOR PLUGGED INTO RED OUTLET TOLERATING WELL WITHOUT ADVERSE REACTIONS NOTED TO A PORTEX DCT #7 AIRWAY SECURED WITH A PORTEX TRACH TIE CUFF PRESSURE CHECKED NOTED AMBU BAG AT BEDSIDE LOC RESTING WELL GOOD CHEST RISE DEEP TRACHEAL SUCTION FOR COPIOUS THICK YELLOW SECRETIONS AIRWAY PATENT SATURATION 98% ON FIO2 OF 50% PEEP 5cmH2O TITRATED FIO2 TO 45%
--- NOTE | 2021-01-17 07:19 | NUR ---
TRANSFER OF CARE REPORT PROVIDED TO ANTHONY LI.
--- NOTE | 2021-01-17 07:20 | NUR ---
RECEIVED REPORT FROM JD LI. TRANSFER OF CARE AT THIS TIME.
[2021-01-17 07:39] LABS: ANION GAP 27.2 (8-16); CARBON DIOXIDE 12.2 mmol/L (21-32); CREATININE 2.3 mg/dL (0.6-1.3); POTASSIUM 5.4 mmol/L (3.5-5.1)
[2021-01-17 07:43] LABS: MAGNESIUM 1.6 mg/dL (1.8-2.4); PHOSPHORUS 5.7 mg/dL (2.5-4.9)
[2021-01-17] MEDS: DEXTROSE 50% 50 ML SYR IVP PRN ×4 (08:00→21:00)
--- NOTE | 2021-01-17 08:12 | NUR ---
CALLED AND GAVE REPORT TO CARRILLO LI FOR TRANSFER TO ICU BED 127A. ETA 15 MINS.
--- NOTE | 2021-01-17 08:28 | NUR ---
TRANSFERRED PATIENT TO ICU OVERFLOW 127-A REMOVED FROM VENTILATOR PLACED ON SUPPLEMENTAL OXYGEN AT 15 LPM VIA E-TANK (800 PSI) TO AMBU BAG/TRACHEOSTOMY BAG DEPRESSION EVERY 6-8 SECONDS SATURATION 100% HR 91 TOLERATED TRANSFER WELL WITHOUT COMPLICATIONS
--- NOTE | 2021-01-17 08:30 | NUR ---
RECEIVED REPORT FROM ER NURSE. CHIEF COMPLAINT OF HEMATURIA AND HYPOTENSION, ADMITTING DX SEPTIC SHOCK. TRACH TO VENT A/C VC FIO2 45%, RATE-12, PEEP 5 TV 450. APHASIC AT BASELINE, RESPIRATION EVEN AND UNLABORED. FLACC 0, NO APPARENT DISTRESS. ABDOMEN DISTENDED. PICC LINE ON THE RIGHT UPPER ARM INFUSING PROPOFOL VASOPRESSIN @ 0.04 UNITS/MIN, LEVOPHED 30MCG/MIN, NEOSYNEPHRINE 150 MCG/MIN, NS 120CC/HR . GT INTACT AND PATENT. HAMEED IN PLACE. SIDE RAILS UP, BED IN LOW AND LOCKED POSITIONED. WILL CONTINUE TO MONITOR.
--- NOTE | 2021-01-17 08:37 | NUR ---
Patient will be admitted to care of Dr. Yamilex De La Cruz. Admited to ICU. Will go to room 127A. Belongings list completed. Report to Chad LI.
[2021-01-17] MEDS: TAMSULOSIN 0.4 MG CAP PO SCH (09:00)
[2021-01-17] MEDS ORDERED: NON-FORMULARY ITEM (Multivitamin with Minerals (Multivitamins with Minerals) 1 TAB) GT/PO SCH (09:00)
[2021-01-17] MEDS: MULTIVITAMIN/MINERALS 1 TAB GT SCH (09:00)
[2021-01-17] MEDS: LACTOBACILLUS RHAMNOSUS GG 1 EACH CAP GT SCH ×2 (09:00→21:00)
[2021-01-17] MEDS ORDERED: MAG SULF 2000 MG/WATER PREMIX 50 ML IV SCH (09:00)
[2021-01-17] MEDS: levETIRAcetam 100 MG/ML ORASYR GT SCH ×2 (09:00→21:00)
[2021-01-17] MEDS ORDERED: COLISTIMETHATE SODIUM 150 MG in NACL 0.9% 100 ML IV SCH ×2 (09:00→10:00)
[2021-01-17] MEDS ORDERED: MULTIVITAMIN/MINERALS 15 ML UDBTL GT SCH (09:00)
--- NOTE | 2021-01-17 09:00 | NUR ---
SEEN BY DR KATIE LONGORIA
--- NOTE | 2021-01-17 09:09 | NUR ---
PATIENT HAS BEEN SCREENED AND CATEGORIZED HIGH NUTRITION RISK. PATIENT WILL BE SEEN WITHIN 1-2 DAYS OF ADMISSION. 01/17/21-01/18/[address]
--- NOTE | 2021-01-17 09:15 | NUR ---
DR BEJARANO ATTEMPTED TO INSERT NEW 16 FR CATHETER, UNSUCCESSFUL. ORDERED FOR CYSTOSCOPY AND POSSIBLE BLOOD CLOT REMOVAL
--- NOTE | 2021-01-17 10:30 | NUR ---
PT OFF UNIT TO OR FOR CYTOSCOPY
[2021-01-17] MEDS ORDERED: ETOMIDATE 20 MG/10 ML VIAL IVP ONE (10:37)
[2021-01-17] MEDS: NOREPINEPHRINE 16 MG in DEXTROSE 5% 250 ML IV PRN ×2 (11:10→19:50)
[2021-01-17] MEDS: PHENYLEPHRINE 40 MG in NACL 0.9% 250 ML IV PRN ×3 (11:11→19:50)
--- NOTE | 2021-01-17 11:53 | NUR ---
PT BACK FROM OR. WITH 22FR [address] WAY CATHETER
--- NOTE | 2021-01-17 12:10 | NUR ---
SBP 60s TO 70s. NOTIFIED DR SULLIVAN, ORDERED 1L NS BOLUS
[2021-01-17] MEDS ORDERED: NACL 0.9% 1,000 ML IV SCH (12:45)
--- NOTE | 2021-01-17 13:43 | NUR ---
TUBE FEEDING RECOMMENDATIONS FOR JEVITY 1.2 @ 70 WITH TEQUIL[address] BID APPROV[address]. STEINER.
--- NOTE | 2021-01-17 14:04 | NUR ---
SOCIAL WORK NOTE: Patient's Orientation Unable To Assess Information Provided By [facility] Comments SW WAS UNABLE TO MEET PATIENT AT BEDSIDE. SW COMPLETED ASSESSMENT WITH [facility] STAFF. Hvac Controls Technician, Realtionship and Phone Number MADALYN RIVERA [phone] Healthcare Power of Mold Breaker No Does Patient Have a POLST No Identifying Problems No Social Work Triggers Is A Social Work Consult Needed No Mandate Report Filed No Explanation Of Identifying Problems PATIENT IS A 45-YEAR-OLD MALE ADMITTED FOR SEPTIC SHOCK. PATIENT HAS PMHX OF CARDIAC DISORDERS, GERD, PACEMAKER, AND EPILEPSY. Admitted From [facility] - [phone] Pre-Admission Level Of Functioning Status Total Care Level Of Functioning Comment PER [facility] STAFF, PATIENT IS BED BOUND. Prior Resources/Services Used In Last 12 Months SN[facility] Prior Resources/Service Comments PATIENT IS LONG TERM AND ON A BED HOLD PER MARY. Prior [facility] Hospital Bed Dialysis Comments N/A Patient Had Caregiver No Home Support No Caregiver Issues Financial Issues No Known Financial Issue Referral To The Financial Counselor Needed No Factors/Needs No D/C Needs Identified Pt/Rep Participated In Discharge Plan Yes Patient/Family Agress With Discharge Plan Yes Discharge Plan Comments TENTATIVE DISCHARGE PLAN IS FOR PATIENT TO RETURN TO [facility]. DC Plan Status Initiated
--- NOTE | 2021-01-17 14:13 | NUR ---
01/17/21 RD INITIAL ASSESSMENT COMPLETED PLEASE REFER TO NUTRITION ASSESSMENT UNDER CARE ACTIVITY FOR ESTIMATED NUTRITIONAL NEEDS. 1. CONTINUE RECOMMEND JEVITY 1.2 @ 70 ML/HR X 24 HR -THIS WILL PROVIDE 2016 KCAL AND 93 GM OF PROTEIN; FLUSH 2. RECOMMEND TEQUILA BID 3. RD TO FOLLOW-UP 2-3 DAYS, HIGH RISK JUAN PABLO LU RD
[2021-01-17] MEDS: VASOPRESSIN 20 UNITS in NACL 0.9% 250 ML IV SCH (15:15)
--- NOTE | 2021-01-17 15:30 | NUR ---
PAGED DR SULLIVAN REGARDING SBP 60-70. DR SULLIVAN SAID JUST TO MONITOR PT
[2021-01-17] MEDS ORDERED: SODIUM BICARBONATE 8.4% PFS 50 MEQ/50 ML SYR IVP ONE (17:56)
--- NOTE | 2021-01-17 18:00 | NUR ---
CALLED DR SULLIVAN REGARDING ABG, ORDERED 1 AMP BICARB IVP, CHANGE VENT SETTINGS RATE TO 16 TV TO 500
--- NOTE | 2021-01-17 19:15 | NUR ---
RECEIVED TRACH TO VENT PT ON VENT SETTINGS AC 16, VT 500, PEEP 5, FiO2 45%. VENT PLUGGED IN RED OUTLET AND ALARMS SET AND AUDIBLE TO ENVIRONMENT. COARSE BREATH SOUNDS ON AUSCULTATION. BILATERAL CHEST RISE AND FALL. WILL CONTINUE TO MONITOR PT.
--- NOTE | 2021-01-17 19:30 | NUR ---
PT HAD AN EPISODE OF VOMITING. SUCTIONED AND PUT CLEAN LINENS ON. RAISED HOB. VAP ORAL CARE. WILL CONT TO MONITOR.
--- NOTE | 2021-01-17 20:00 | NUR ---
RECEIVED BEDSIDE REPORT FROM DAY SHIFT NURSE RN, PT WEIGHT 54.431 KG, FLACC 0. RESPIRATION EVEN, SHALLOW, AND UNLABORED. TRACH TO VENT, AC/PC FIO2 45%, RATE 16, PEEP 5, SPO2 99%, LUNGS SOUND DIMINISHED UPON AUSCULTATION. SR NOTED ON MONITOR. PACEMAKER NOTED. RT FA 20g: ASYMPTOMATIC AND SALINE LOCKED. LINDA PICC: ASYMPTOMATIC, CLEAN AND INTACT, RUNNING: LEVOPHED 30 MCG/MIN, COLLEEN-SYNEPHRINE 150 MCG/MIN, VASOPRESSIN 0.04 UNIT/MIN AND NS @ 100 ML/HR. BOWEL SOUNDS HYPOACTIVE, ABDOMEN ROUND, HARD, AND DISTENDED. G-TUBE IN PLACE, RESIDUAL 600ML, BROWN WITH BLOOD PRESENT IN RESIDUAL. FEEDING HELD AT THIS TIME. HAMEED IN PLACE, DRAINING WITH GRAVITY, LIGHT MORGAN URINE IN BAG NOTED. SKIN: SACRAL WOUND NOTED, SKIN DRY AND WARM TO TOUCH, BILATERAL HEEL PROTECTORS IN PLACE. SAFETY MEASURES IN PLACE. FALL RISK AND SEIZURE PRECAUTIONS IN PLACE. HOB ELEVATED 30 DEGREE, BED IN LOW AND LOCKED POSITION. WILL CONT TO MONITOR.
--- NOTE | 2021-01-17 20:15 | NUR ---
James SANTIAGO CALLED. UPDATED ON PTs CONDITION AND LOW B/P OF 68/[address] STEINER, ORDER 1L BOLUS OF NS 0.9%. WILL TAKE PT TO CT SCAN THEN UPDATE HER ON RESULTS.
--- NOTE | 2021-01-17 20:45 | NUR ---
CALLED RAD FOR CT SCAN AND DID NOT TAKE PT DUE TO UNSTABLE CONDITION
[2021-01-17] MEDS: DOCUSATE 100 MG/10 ML UDC GT SCH (21:00)
--- NOTE | 2021-01-17 21:00 | NUR ---
PT HAD AN EPISODE OF VOMITING. SUCTIONED AND PUT CLEAN LINENS ON. RAISED HOB TO HIGH FOWLERS. VAP ORAL CARE. WILL CONT TO MONITOR.
--- NOTE | 2021-01-17 21:10 | NUR ---
PAGED THE CREPE SOLE SCOURER. DR STEWART CALLED BACK. UPDATED ON PTs LOW BP 64/28 AND THAT PT IS MAXED OUT ON PRESSORS. PER DR STEWART: STAT CBC, TYPE AND SCREEN, IF HGB <8 THEN TRANSFUSE 2 UNITS OF PRBC. AND ORDERED NS 0.9% BOLUS WIDE OPEN.
--- NOTE | 2021-01-17 21:30 | NUR ---
CALLED PTs MOTHER AND SISTER TO OBTAIN CONSENT FOR BLOOD TRANSFUSION. NO ANSWER. WILL KEEP CALLING.
--- NOTE | 2021-01-17 21:40 | NUR ---
LAB AT BEDSIDE
[2021-01-17 21:51] LABS: HEMATOCRIT 25.2 % (36-52); HEMOGLOBIN 7.4 g/dL (12.0-18.0); MEAN CORPUSCULAR HEMOGLOBIN 29 pg (27-31); MEAN CORPUSCULAR HGB CONC 29 g/dL (33-37); MEAN CORPUSCULAR VOLUME 97.4 fL (80-94); PLATELET COUNT (AUTO) 454 K/uL (140-450); RED BLOOD CELL COUNT(AUTO) 2.58 MIL/uL (4.20-6.10); RED CELL DISTRIBUTION WIDTH 18.7 % (11.6-13.7); WHITE BLOOD COUNT (AUTO) 24.3 K/uL (4.8-10.8)
--- NOTE | 2021-01-17 22:00 | NUR ---
AT BEDSIDE PT DESATURATING IN 80s. TITRATED FiO2 TO 50%. SPO2 86%. WILL CONTINUE TO MONITOR PT.
[2021-01-17] MEDS ORDERED: VANCOMYCIN PER PHARMACY MC PRN ×2 (22:30)
[2021-01-17 23:00] LABS: EOSINOPHILS % (MANUAL) 2 % (0-4); LYMPHOCYTES % (MANUAL) 5 % (20-46); MONOCYTES % (MANUAL) 3 % (5-12)
[2021-01-17] MEDS ORDERED: levETIRAcetam 100 MG/ML VIAL IV ONE (23:14)
--- NOTE | 2021-01-17 23:25 | NUR ---
PTs MOTHER ANSWERED PHONE CALL. UPDATED ON PTs CONDITION AND OBTAINED CONSENT FOR BLOOD TRANSFUSION WITH NURSE SAUNDRA.
[2021-01-18] VITALS (25 sets, daily range): BP systolic 55–147; BP diastolic 20–75
--- NOTE | 2021-01-18 | NUR ---
STARTED BLOOD TRANSFUSION.
--- NOTE | 2021-01-18 00:05 | NUR ---
NO REACTIONS NOTED, WILL CONT TO ASSESS
--- NOTE | 2021-01-18 00:30 | NUR ---
NO REACTIONS NOTED, WILL CONT TO ASSESS
[2021-01-18] MEDS ORDERED: VASOPRESSIN 20 UNITS/ML VIAL ONE (00:34)
[2021-01-18] MEDS: VASOPRESSIN 20 UNITS in NACL 0.9% 250 ML IV SCH ×2 (00:50→09:00)
--- NOTE | 2021-01-18 01:00 | NUR ---
NO REACTIONS NOTED, WILL CONT TO ASSESS
[2021-01-18] MEDS: PHENYLEPHRINE 40 MG in NACL 0.9% 250 ML IV PRN ×3 (01:15→11:00)
--- NOTE | 2021-01-18 01:30 | NUR ---
RECHECKED PTs RESIDUALS, 700ML OF LIGHT BROWN RESIDUALS NOTED. PUT BACK 200 ML
--- NOTE | 2021-01-18 02:40 | NUR ---
CALLED TO BEDSIDE DUE TO PT DESATURATING. SPO2 IN LOW 80s. TITRATED FiO2 TO 60%. SPO2 93%. RN AT BEDSIDE. WILL CONTINUE TO MONITOR PT.
[2021-01-18] MEDS ORDERED: VANCOMYCIN 1GM/DEXT 5% PREMIX 200 ML IV SCH (03:35)
[2021-01-18] MEDS: PIPERACILLIN/TAZOBACTAM 3.375 GM in DEXTROSE 5% 50 ML IV SCH ×2 (05:00→13:00)
--- NOTE | 2021-01-18 05:05 | NUR ---
UNABLE TO READ B/P. PAGED DR STEWART. AWAITING A CALL BACK.
[2021-01-18] MEDS ORDERED: NOREPINEPHRINE 4 MG/4 ML VIAL IV ONE (05:18)
[2021-01-18] MEDS: NOREPINEPHRINE 16 MG in DEXTROSE 5% 250 ML IV PRN ×2 (05:30→10:40)
[2021-01-18] MEDS ORDERED: PHENYLEPHRINE 10 MG/ML VIAL ONE (05:31)
[2021-01-18] MEDS: BLOOD GLUCOSE MONITORING 1 DEV DEV FS SCH ×4 (05:43→11:34)
--- NOTE | 2021-01-18 05:43 | NUR ---
BG CHECK WAS TOO LOW TO READ. GAVE 1 AMP OF D5% (50ML). WILL REASSESS.
--- NOTE | 2021-01-18 05:58 | NUR ---
CURRENT B. GAVE 1 MORE AMP OF D5% (50ML). WILL REASSESS.
--- NOTE | 2021-01-18 06:05 | NUR ---
DR STEWART CALLED BACK, UPDATED ON PTs CONDITION. MD AWARE OF LOW BP AND PT IS ON PRESSORS MAXED OUT. PER DR STEWART, AWARE AND CONTINUE CURRENT TREATMENTS, NO NEW ORDERS AT THIS TIME.
--- NOTE | 2021-01-18 06:11 | NUR ---
AT BEDSIDE HELPING TO GET A B/P ON PT. RETAIL COMMISSION SALES ASSOCIATE AT BEDSIDE. UNABLE TO GET B/P. HR IN 50s AND 60s. CHECK PULSE WITH DOPPLER AND PT HAS PULSE. PT DESATURATING. INCREASE FiO2 TO 100%. WILL CONTINUE TO MONITOR PT.
--- NOTE | 2021-01-18 06:20 | NUR ---
CURRENT B. STILL NO READABLE B/P. PT HAS PULSE. HR 60 SPO2 98%, RR: 34
--- NOTE | 2021-01-18 06:25 | NUR ---
[facility] CALLED. ER DR PISANO CAME TO BEDSIDE. MADE AWARE OF UNREADABLE BP AND MAXED OUT ON PRESSORS. PT HAS A PULSE. PER DR PISANO, NO NEW ORDERS AT THIS TIME. RECOMMENDS POSSIBLE ARTERIAL LINE PLACED.
--- NOTE | 2021-01-18 06:40 | NUR ---
PTs MOTHER CALLED. UPDATED ON PTs CONDITION. THE MOTHER PRAYED ON THE PHONE AND STATED "HE WILL WAKE UP"
--- NOTE | 2021-01-18 06:54 | NUR ---
DR JANE ALEXANDER ON UNIT. UPDATED ON PTs CONDITION. MADE AWARE NO CT SCAN WAS DONE D/T UNSTABLE CONDITION. NO NEW ORDERS AT THIS TIME. Addendum: 01/18/21 at 0800 by Roro Benz RN RN PER DR JANE ALEXANDER, ORDER LOW INTERMITTENT SUCTION FROM G-TUBE
--- NOTE | 2021-01-18 07:16 | NUR ---
ENDORSED CARE TO DAY SHIFT RN MIKE.
--- NOTE | 2021-01-18 08:00 | NUR ---
BEDSIDE REPORT RECEIVED FROM DAY SHIFT RN. PT LYING IN BED RESTING. VENTED VIA TRACH @100%/16RR/5PEEP. PACE IN LEFT CHEST,PACED ON TELE MONITOR. RIGHT PICC AND RIGHT FOREARM PERIPHERAL IV, RUNNING LEVOPHED 30MCG, VASO 0.04UNITS, [id number], RBC, AND IVF.GTUBE IN PLACE, ON WALL INTERMITTENT SUCTION DUE TO HIGH RESIDUALS. HAMEED CATHETER IN PLACE, CHG BATH CARE COMPLETED. WILL CONTINUE TO MONITOR.
[2021-01-18] MEDS: ENOXAPARIN 60 MG/0.6 ML SYR SUBQ SCH (08:38)
[2021-01-18] MEDS: levETIRAcetam 100 MG/ML ORASYR GT SCH (08:39)
[2021-01-18] MEDS: TAMSULOSIN 0.4 MG CAP PO SCH (08:40)
[2021-01-18] MEDS: LACTOBACILLUS RHAMNOSUS GG 1 EACH CAP GT SCH (08:40)
[2021-01-18] MEDS: carBAMazepine 200 MG TAB GT SCH (08:40)
[2021-01-18] MEDS: DOCUSATE 100 MG/10 ML UDC GT SCH (08:40)
[2021-01-18] MEDS: ASCORBIC ACID 500 MG TAB PO SCH (08:42)
[2021-01-18] MEDS: MULTIVITAMIN/MINERALS 1 TAB GT SCH (08:42)
[2021-01-18] MEDS ORDERED: VANCOMYCIN 1,000 MG in DEXTROSE 5% 250 ML IV SCH (09:00)
[2021-01-18] MEDS: NACL 0.9% 1,000 ML IV SCH (09:02)
[2021-01-18] MEDS: DEXTROSE 50% 50 ML SYR IVP PRN (09:15)
--- NOTE | 2021-01-18 10:00 | NUR ---
UNABLE TO OBTAIN BP READING SINCE AM. , , AND AWARE. DR. EDGAR SPOKE TO MOTHER. MOTHER PLANNING TO VISIT SON.
[2021-01-18] MEDS ORDERED: DEXT 5% /NACL 0.9% 1,000 ML IV SCH (11:35)
--- NOTE | 2021-01-18 12:08 | NUR ---
PT MOTHER MADALYN AT BEDSIDE, VISITING PT. AWARE OF PT CONDITION.
[2021-01-18] MEDS: EPINEPHrine 1:1000 (1 mg/mL) 1 MG in DEXTROSE 5% 250 ML IV PRN ×2 (13:45→15:31)
[2021-01-18 14:59] LABS: BASOPHILS # (AUTO) 0.1 K/uL (0.00-0.22); BASOPHILS % (AUTO) 0.4 % (0.0-2.0); EOSINOPHILS # (AUTO) 0.9 K/uL (0-0.4); EOSINOPHILS % (AUTO) 4.8 % (0.0-4.0); HEMATOCRIT 32.5 % (36-52); HEMOGLOBIN 9.3 g/dL (12.0-18.0); LYMPHOCYTES # (AUTO) 1.9 K/uL (2.0-11.5); LYMPHOCYTES % (AUTO) 9.8 % (20.5-51.1); MEAN CORPUSCULAR HEMOGLOBIN 29 pg (27-31); MEAN CORPUSCULAR HGB CONC 29 g/dL (33-37); MEAN CORPUSCULAR VOLUME 100.2 fL (80-94); MONOCYTES # (AUTO) 0.3 K/uL (0.8-1.0); MONOCYTES % (AUTO) 1.7 % (1.7-9.3); NEUTROPHILS # (AUTO) 15.9 K/uL (1.8-7.7); NEUTROPHILS % (AUTO) 83.3 % (42.2-75.2); PLATELET COUNT (AUTO) 424 K/uL (140-450); RED BLOOD CELL COUNT(AUTO) 3.24 MIL/uL (4.20-6.10); RED CELL DISTRIBUTION WIDTH 18.6 % (11.6-13.7)
[2021-01-18] MEDS ORDERED: EPINEPHrine 1:1000 (1 mg/mL) 6 MG in DEXTROSE 5% 250 ML IV PRN (15:25)
[2021-01-18 15:46] LABS: ANION GAP 31.9 (8-16); CREATININE 2.6 mg/dL (0.6-1.3)
[2021-01-18 15:54] LABS: POTASSIUM 6.3 mmol/L (3.5-5.1)
[2021-01-18 15:55] LABS: CARBON DIOXIDE 7.4 mmol/L (21-32); PHOSPHORUS 10.1 mg/dL (2.5-4.9)
--- NOTE | 2021-01-18 16:03 | NUR ---
AIDEE SMITH, REAL CUETO CALLED. MARITZA TO CODE NORY SHEET.
--- NOTE | 2021-01-18 16:12 | NUR ---
PT REMAINS ASYSTOLE AFTER 3 ROUNDS OF EPINEPHRINE, DR VIVAS AT BEDSIDE, TIME OF PRONOUNCED. FAMILY AWARE.
--- NOTE | 2021-01-18 16:45 | NUR ---
CALLED [facility] OFFICE REGARDING PT , AWAITING FOR CALL BACK.
--- NOTE | 2021-01-18 16:46 | NUR ---
[facility] CALLED REGARDING PT .
--- NOTE | 2021-01-18 17:46 | NUR ---
CALLED [facility] OFFICE AGAIN REGARDING PT .
--- NOTE | 2021-01-18 18:56 | NUR ---
[facility] KEY[facility] MARY VIZCAINO, PER MARY DANG TO RELEASE THE BODY.
--- NOTE | 2021-01-18 19:30 | NUR ---
BODY CLEANED, VERIFIED BODY WITH NURSE EXPERIENCE SPECIALIST OSCAR LI.
== END 2021-01-18 16:15 | DRG 871 ==
LOC: MED 17:30 → MTU 20:54 → MMU 01-17 05:30
PROVIDERS: ADMIT Family Medicine; ATTEND Family Medicine
PROC: 30233N1 Transfusion of Nonautologous Red Blood Cells into Peripheral Vein, Percutaneous Approach (ICD-10-PCS; 2021-01-17)
PROC: 0TCD8ZZ Extirpation of Matter from Urethra, Via Natural or Artificial Opening Endoscopic (ICD-10-PCS; 2021-01-17)
PROC: 5A1935Z Respiratory Ventilation, Less than 24 Consecutive Hours (ICD-10-PCS; principal; 2021-01-17 10:30)
PROC: 5A1935Z Respiratory Ventilation, Less than 24 Consecutive Hours (ICD-10-PCS; 2021-01-18)
PROC: 5A12012 Performance of Cardiac Output, Single, Manual (ICD-10-PCS; 2021-01-18)
DX: A41.9 Sepsis, unspecified organism (principal); G93.41 Metabolic encephalopathy; L89.154 Pressure ulcer of sacral region, stage 4; J96.20 Acute and chronic respiratory failure, unspecified whether with hypoxia or hypercapnia; N17.0 Acute kidney failure with tubular necrosis; G80.0 Spastic quadriplegic cerebral palsy; J96.21 Acute and chronic respiratory failure with hypoxia; I21.4 Non-ST elevation (NSTEMI) myocardial infarction; R65.21 Severe sepsis with septic shock; E43 Unspecified severe protein-calorie malnutrition; J18.9 Pneumonia, unspecified organism; N39.0 Urinary tract infection, site not specified; G91.9 Hydrocephalus, unspecified; G93.1 Anoxic brain damage, not elsewhere classified; Z99.11 Dependence on respirator [ventilator] status; D63.8 Anemia in other chronic diseases classified elsewhere; F03.90 Unspecified dementia, unspecified severity, without behavioral disturbance, psychotic disturbance, mood disturbance, and anxiety; G40.909 Epilepsy, unspecified, not intractable, without status epilepticus; I12.9 Hypertensive chronic kidney disease with stage 1 through stage 4 chronic kidney disease, or unspecified chronic kidney disease; K21.9 Gastro-esophageal reflux disease without esophagitis; N40.0 Benign prostatic hyperplasia without lower urinary tract symptoms; R13.11 Dysphagia, oral phase; N18.31 Chronic kidney disease, stage 3a; K59.00 Constipation, unspecified; E87.5 Hyperkalemia; E16.2 Hypoglycemia, unspecified; Z20.822 Contact with and (suspected) exposure to COVID-19; R31.0 Gross hematuria; I46.9 Cardiac arrest, cause unspecified; Z86.73 Personal history of transient ischemic attack (TIA), and cerebral infarction without residual deficits; Z87.442 Personal history of urinary calculi; Z88.7 Allergy status to serum and vaccine; Z95.0 Presence of cardiac pacemaker; Z98.2 Presence of cerebrospinal fluid drainage device; Z93.1 Gastrostomy status; Z93.0 Tracheostomy status; Z68.21 Body mass index [BMI] 21.0-21.9, adult
CPT/HCPCS: 36415; 70450; 71045; 74018; 76604; 80048; 80053; 81001; 82150; 82550; 82728; 82947; 82948; 83036; 83605; 83615; 83690; 83735; 83880; 84100; 84439; 84443; 84484; 85025; 85379; 85384; 85610; 85730; 86140; 86886; 86900; 86901; 86920; 87040; 87081; 87086; 87804; 93005; 94003; 99291; C1758; C1769; J0171; J0770; J1650; J1953; J2060; J2370; J2543; J3370; J3475; J3490; J7030; J7060; P9016